=== PATIENT | male | born 1945 | race African-American/Black ===

== ENCOUNTER → 2016-07-12 | Outpatient (CLI) | payer BC, MEDICARE ==
[2016-07-12 17:16] LABS: ABSOLUTE BASOPHILS # (AUTO) 0.1 10^3/uL (0.0-0.2); ABSOLUTE EOSINOPHILS # (AUTO) 0.1 10^3/uL (0.0-0.6); ABSOLUTE LYMPHOCYTES (AUTO) 1.9 10^3/uL (0.5-4.7); ABSOLUTE MONOCYTES (AUTO) 1.7 10^3/uL (0.1-1.4); ABSOLUTE NEUT (AUTO) 11.7 10^3/uL (1.7-8.2); BASOPHILS % (AUTO) 0.5 % (0-2); EOSINOPHILS % (AUTO) 0.6 % (0-6); HEMATOCRIT 29.4 % (37.9-51.0); HEMOGLOBIN 9.8 g/dL (13.5-17.0); LYMPHOCYTES % (AUTO) 12.2 % (13-45); MEAN CORPUSCULAR HEMOGLOBIN 28.4 pg (27.0-33.4); MEAN CORPUSCULAR HGB CONC 33.3 g/dL (32.0-36.0); MEAN CORPUSCULAR VOLUME 85 fl (80-97); MONOCYTES % (AUTO) 10.9 % (3-13); RED BLOOD COUNT 3.45 10^6/uL (4.35-5.55); RED CELL DISTRIBUTION WIDTH 15.4 % (11.5-14.0); SEGMENTED NEUTROPHILS % (AUTO) 75.8 % (42-78); WHITE BLOOD COUNT 15.4 10^3/uL (4.0-10.5)
[2016-07-12 17:24] LABS: APPEARANCE,URINE CLEAR; BILIRUBIN,URINE NEGATIVE (NEGATIVE); GLUCOSE, URINE NEGATIVE (NEGATIVE); KETONES,URINE NEGATIVE (NEGATIVE); LEUKOCYTE ESTERASE,URINE NEGATIVE (NEGATIVE); NITRITE,URINE NEGATIVE (NEGATIVE); PROTEIN,URINE NEGATIVE (NEGATIVE); URINE SPECIFIC GRAVITY 1.008; UROBILINOGEN,URINE NEGATIVE mg/dL (<2.0)
[2016-07-12 17:47] LABS: ALANINE AMINOTRANSFERASE 40 U/L (21-72); ALBUMIN 3.6 g/dL (3.5-5.0); ALKALINE PHOSPHATASE 68 U/L (38-126); ANION GAP 9 (5-19); ASPARTATE AMINO TRANSFERASE 26 U/L (17-59); BILIRUBIN,TOTAL 0.6 mg/dL (0.2-1.3); BLOOD UREA NITROGEN 23 mg/dL (7-20); CARBON DIOXIDE 30 mmol/L (22-30); CHLORIDE 98 mmol/L (98-107); CREATININE RESULT 1.27 mg/dL (0.52-1.25); GLUCOSE 85 mg/dL (75-110); POTASSIUM 4.1 mmol/L (3.6-5.0); SODIUM 136.5 mmol/L (137-145); TOTAL PROTEIN 6.6 g/dL (6.3-8.2)
== END ==
LOC: OD 16:28
PROVIDERS: ATTEND Internal Medicine Cardiovascular Disease
DX: Z79.01 Long term (current) use of anticoagulants (principal); Z79.899 Other long term (current) drug therapy
CPT/HCPCS: 36415; 80048; 80076; 81001; 82272; 85025; 85730

== ENCOUNTER 2016-07-20 10:03 | Day surgery (SDC) | payer BC, MEDICARE ==
[~2016-07-20 10:03] MED LIST: DIPHENHYDRAMINE HCL 50 MG/ML VIAL ONE; EPINEPHRINE INJ 1 MG/10 ML DISP.SYRIN ONE; FENTANYL CITRATE INJ/PF 100 MCG/2 ML AMPUL ONE; FLUMAZENIL INJ 0.5 MG/5 ML VIAL IV ONE; GLUCAGON,HUMAN RECOMB 1 MG INJ ONE; MIDAZOLAM 2 MG/2 ML INJ ONE; NALOXONE HCL INJ/PF 0.4 MG/1 ML SDV ONE; ONDANSETRON HCL INJ/PF 4 MG/2 ML SDV ONE; PROMETHAZINE HCL INJ 25 MG/1 ML VIAL ONE
--- NOTE | 2016-07-20 11:02 | Operative Report ---
Operative Report DATE OF SURGERY: 07/20/16 Operative Report: The risks benefits and alternatives of the procedure explained to the patient in detail and informed consent is obtained that GIF Olympus video scope was inserted into the patient's mouth and hypopharynx the esophagus is identified intubated and insufflated the scope was then advanced through the esophagus stomach and duodenum retroflexion maneuver is done the esophagus stomach and first and second portions of the duodenum examined PREOPERATIVE DIAGNOSIS: GI bleed, heme-positive stools, decreasing hemoglobin POSTOPERATIVE DIAGNOSIS: Small bowel AVM status post ablation. Gastritis. 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 Patient is currently on anticoagulation not able to biopsy at risk of bleeding OPERATION: EGD with ablation SURGEON: RUBIA XIE ANESTHESIA: Other - patient is unsedated TISSUE REMOVED OR ALTERED: None. COMPLICATIONS: None. ESTIMATED BLOOD LOSS: none. INTRAOPERATIVE FINDINGS: Small bowel AVMs status post ablation. Gastritis. 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 No immediate postprocedure complications are noted. Patient is discharged in good condition. Discharge date 07/20/2016. Discharge diet: Regular. Discharge activity: Regular. We'll need to stop anticoagulation Follow-up EGD in 2-3 weeks at that point may need repeat ablation He'll need a patient that time for his Montgomery's esophagus is well. Patient is instructed to call the office or proceed to the emergency room if there are any further problems or questions.
[2016-07-20 11:38] VITALS: BP 148/82
== END 2016-07-20 11:40 | disposition home or self-care (01) ==
LOC: END 10:03
PROVIDERS: ATTEND Internal Medicine Gastroenterology
PROC: 0W3P8ZZ Control Bleeding in Gastrointestinal Tract, Via Natural or Artificial Opening Endoscopic (ICD-10-PCS; principal; 2016-07-20 10:00)
DX: Q27.33 Arteriovenous malformation of digestive system vessel (principal); K29.70 Gastritis, unspecified, without bleeding; J45.909 Unspecified asthma, uncomplicated; I10 Essential (primary) hypertension; E11.9 Type 2 diabetes mellitus without complications; Z79.01 Long term (current) use of anticoagulants
CPT/HCPCS: 43255; 82962; J2250; J0171; J1200; J1610; J2310; J2405; J2550; J3010; J3490

== ENCOUNTER → 2016-08-07 | Outpatient (CLI) | payer MEDICARE, BC ==
[2016-08-07 12:53] LABS: HEMOGLOBIN 10.6 g/dL (13.5-17.0); HGB HCT DIFFERENCE -0.2; MEAN CORPUSCULAR HEMOGLOBIN 28.7 pg (27.0-33.4); MEAN CORPUSCULAR VOLUME 87 fl (80-97); RED BLOOD COUNT 3.69 10^6/uL (4.35-5.55); RED CELL DISTRIBUTION WIDTH 16.5 % (11.5-14.0); WHITE BLOOD COUNT 15.2 10^3/uL (4.0-10.5)
== END ==
LOC: OD 11:56
PROVIDERS: ATTEND Internal Medicine Cardiovascular Disease
DX: K92.2 Gastrointestinal hemorrhage, unspecified (principal); D64.9 Anemia, unspecified
CPT/HCPCS: 36415; 85027

== ENCOUNTER 2016-08-14 11:46 | Day surgery (SDC) | payer BC, MEDICARE ==
[~2016-08-14 11:46] MED LIST changes: -MIDAZOLAM 2 MG/2 ML INJ ONE
[2016-08-14] MEDS: MIDAZOLAM 2 MG/2 ML INJ ONE ×2 (12:16→12:20)
--- NOTE | 2016-08-14 12:34 | Operative Report ---
Operative Report DATE OF SURGERY: 08/14/16 Operative Report: The risks benefits and alternatives of the procedure explained to the patient in detail and informed consent is obtained that GIF Olympus video scope was inserted into the patient's mouth and hypopharynx the esophagus is identified intubated and insufflated the scope was then advanced through the esophagus stomach and duodenum retroflexion maneuver is done the esophagus stomach and first and second portions of the duodenum examined PREOPERATIVE DIAGNOSIS: Follow-up in GI bleeding. 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 2 gastric AVMs that ablated in situ. Esophageal ulcer. Hiatal hernia OPERATION: EGD with ablation SURGEON: RUBIA XIE ANESTHESIA: Moderate Sedation - 2 mg of Versed, 50 g of fentanyl. Conscious sedation monitoring time 15 minutes. TISSUE REMOVED OR ALTERED: None. COMPLICATIONS: None. ESTIMATED BLOOD LOSS: none INTRAOPERATIVE FINDINGS: As described above. PROCEDURE: Patient tolerated procedure well. No immediate postprocedure complications are noted. Patient is discharged in good condition. Discharge date 08/14/2016. Discharge diet: Regular. Discharge activity: Regular. 2-3 week follow-up to discuss findings. Start PPI hold off on anticoagulation for another month or so. Due to the esophageal ulceration Follow-up upper endoscopy 6 weeks
[2016-08-14 13:27] VITALS: BP 137/82
== END 2016-08-14 13:30 | disposition home or self-care (01) ==
LOC: END 11:46
PROVIDERS: ATTEND Internal Medicine Gastroenterology
PROC: 0D568ZZ Destruction of Stomach, Via Natural or Artificial Opening Endoscopic (ICD-10-PCS; principal; 2016-08-14 12:00)
DX: K31.811 Angiodysplasia of stomach and duodenum with bleeding (principal); K44.9 Diaphragmatic hernia without obstruction or gangrene; K22.10 Ulcer of esophagus without bleeding; J45.909 Unspecified asthma, uncomplicated; E11.9 Type 2 diabetes mellitus without complications; I10 Essential (primary) hypertension; Z79.51 Long term (current) use of inhaled steroids; Z79.899 Other long term (current) drug therapy; Z79.82 Long term (current) use of aspirin; Z85.46 Personal history of malignant neoplasm of prostate
CPT/HCPCS: 43270; 82962; J2250; J3010; J0171; J1200; J1610; J2310; J2405; J2550; J3490

== ENCOUNTER → 2016-08-22 | Outpatient (CLI) | payer BC, MEDICARE ==
[2016-08-22 11:38] LABS: APPEARANCE,URINE CLEAR; BILIRUBIN,URINE NEGATIVE (NEGATIVE); GLUCOSE, URINE NEGATIVE (NEGATIVE); KETONES,URINE NEGATIVE (NEGATIVE); LEUKOCYTE ESTERASE,URINE NEGATIVE (NEGATIVE); NITRITE,URINE NEGATIVE (NEGATIVE); PROTEIN,URINE NEGATIVE (NEGATIVE); URINE SPECIFIC GRAVITY 1.012; UROBILINOGEN,URINE NEGATIVE mg/dL (<2.0)
[2016-08-22 11:49] LABS: ABSOLUTE BASOPHILS # (AUTO) 0.1 10^3/uL (0.0-0.2); ABSOLUTE LYMPHOCYTES (AUTO) 1.3 10^3/uL (0.5-4.7); ABSOLUTE MONOCYTES (AUTO) 0.8 10^3/uL (0.1-1.4); ABSOLUTE NEUT (AUTO) 10.9 10^3/uL (1.7-8.2); BASOPHILS % (AUTO) 0.6 % (0-2); EOSINOPHILS % (AUTO) 0.1 % (0-6); HEMATOCRIT 32.9 % (37.9-51.0); HGB HCT DIFFERENCE 0.1; LYMPHOCYTES % (AUTO) 9.6 % (13-45); MEAN CORPUSCULAR HEMOGLOBIN 28.6 pg (27.0-33.4); MEAN CORPUSCULAR HGB CONC 33.5 g/dL (32.0-36.0); MEAN CORPUSCULAR VOLUME 86 fl (80-97); MONOCYTES % (AUTO) 5.9 % (3-13); RED BLOOD COUNT 3.85 10^6/uL (4.35-5.55); RED CELL DISTRIBUTION WIDTH 16.9 % (11.5-14.0); SEGMENTED NEUTROPHILS % (AUTO) 83.8 % (42-78)
[2016-08-22 11:57] LABS: ALANINE AMINOTRANSFERASE 37 U/L (21-72); ALKALINE PHOSPHATASE 65 U/L (38-126); ANION GAP 10 (5-19); ASPARTATE AMINO TRANSFERASE 22 U/L (17-59); BILIRUBIN,DIRECT 0.1 mg/dL (0.0-0.4); BILIRUBIN,TOTAL 0.6 mg/dL (0.2-1.3); BLOOD UREA NITROGEN 17 mg/dL (7-20); CALCIUM 10.2 mg/dL (8.4-10.2); CARBON DIOXIDE 30 mmol/L (22-30); CHLORIDE 99 mmol/L (98-107); CREATININE RESULT 1.03 mg/dL (0.52-1.25); GLUCOSE 125 mg/dL (75-110); POTASSIUM 4.4 mmol/L (3.6-5.0); SODIUM 138.6 mmol/L (137-145); TOTAL PROTEIN 6.4 g/dL (6.3-8.2)
== END ==
LOC: OD 10:27
PROVIDERS: ATTEND Internal Medicine Cardiovascular Disease
DX: I50.32 Chronic diastolic (congestive) heart failure (principal); R06.02 Shortness of breath; Z79.01 Long term (current) use of anticoagulants; Z79.899 Other long term (current) drug therapy
CPT/HCPCS: 36415; 80048; 80076; 81001; 82272; 83735; 83880; 85025; 85730

== ENCOUNTER → 2016-09-05 | Outpatient (CLI) | payer BC, MEDICARE ==
[2016-09-05 14:38] LABS: ABSOLUTE LYMPHOCYTES (AUTO) 1.6 10^3/uL (0.5-4.7); ABSOLUTE MONOCYTES (AUTO) 1.2 10^3/uL (0.1-1.4); ABSOLUTE NEUT (AUTO) 13.3 10^3/uL (1.7-8.2); BASOPHILS % (AUTO) 0.3 % (0-2); EOSINOPHILS % (AUTO) 0.2 % (0-6); HEMATOCRIT 32.2 % (37.9-51.0); HEMOGLOBIN 11.3 g/dL (13.5-17.0); HGB HCT DIFFERENCE 1.7; LYMPHOCYTES % (AUTO) 9.8 % (13-45); MEAN CORPUSCULAR HEMOGLOBIN 29.4 pg (27.0-33.4); MEAN CORPUSCULAR HGB CONC 34.9 g/dL (32.0-36.0); MEAN CORPUSCULAR VOLUME 84 fl (80-97); MONOCYTES % (AUTO) 7.4 % (3-13); RED BLOOD COUNT 3.82 10^6/uL (4.35-5.55); RED CELL DISTRIBUTION WIDTH 16.4 % (11.5-14.0); SEGMENTED NEUTROPHILS % (AUTO) 82.3 % (42-78); WHITE BLOOD COUNT 16.2 10^3/uL (4.0-10.5)
[2016-09-05 14:42] LABS: APPEARANCE,URINE CLEAR; BILIRUBIN,URINE NEGATIVE (NEGATIVE); GLUCOSE, URINE NEGATIVE (NEGATIVE); KETONES,URINE NEGATIVE (NEGATIVE); LEUKOCYTE ESTERASE,URINE NEGATIVE (NEGATIVE); NITRITE,URINE NEGATIVE (NEGATIVE); PROTEIN,URINE NEGATIVE (NEGATIVE); URINE SPECIFIC GRAVITY 1.004; UROBILINOGEN,URINE NEGATIVE mg/dL (<2.0)
[2016-09-05 15:03] LABS: ALANINE AMINOTRANSFERASE 41 U/L (21-72); ALBUMIN 4.4 g/dL (3.5-5.0); ALKALINE PHOSPHATASE 67 U/L (38-126); ANION GAP 14 (5-19); ASPARTATE AMINO TRANSFERASE 26 U/L (17-59); BILIRUBIN,DIRECT 0.2 mg/dL (0.0-0.4); BILIRUBIN,TOTAL 0.7 mg/dL (0.2-1.3); BLOOD UREA NITROGEN 26 mg/dL (7-20); CALCIUM 10.1 mg/dL (8.4-10.2); CARBON DIOXIDE 29 mmol/L (22-30); CHLORIDE 93 mmol/L (98-107); CREATININE RESULT 1.44 mg/dL (0.52-1.25); GLUCOSE 121 mg/dL (75-110); TOTAL PROTEIN 6.7 g/dL (6.3-8.2)
== END ==
LOC: OD 13:51
PROVIDERS: ATTEND Internal Medicine Cardiovascular Disease
DX: Z79.01 Long term (current) use of anticoagulants (principal); Z79.899 Other long term (current) drug therapy
CPT/HCPCS: 36415; 80048; 80076; 81001; 82272; 85025; 85730

== ENCOUNTER 2016-09-12 07:37 | Day surgery (SDC) | payer BC, MEDICARE ==
[2016-09-12] MEDS ORDERED: ONDANSETRON HCL INJ/PF 4 MG/2 ML SDV ONE (07:41)
[2016-09-12] MEDS ORDERED: DIPHENHYDRAMINE HCL 50 MG/ML VIAL ONE (07:41)
[2016-09-12] MEDS ORDERED: NALOXONE HCL INJ/PF 0.4 MG/1 ML SDV ONE (07:41)
[2016-09-12] MEDS ORDERED: FLUMAZENIL INJ 0.5 MG/5 ML VIAL IV ONE (07:42)
[2016-09-12] MEDS ORDERED: FENTANYL CITRATE INJ/PF 100 MCG/2 ML AMPUL ONE (07:42)
[2016-09-12] MEDS ORDERED: EPINEPHRINE INJ 1 MG/10 ML DISP.SYRIN ONE (07:42)
[2016-09-12] MEDS ORDERED: GLUCAGON,HUMAN RECOMB 1 MG INJ ONE (07:43)
[2016-09-12] MEDS: MIDAZOLAM 2 MG/2 ML INJ ONE ×2 (08:15→08:20)
--- NOTE | 2016-09-12 08:54 | Operative Report ---
Operative Report DATE OF SURGERY: 09/12/16 Operative Report: The risks benefits and alternatives of the procedure explained to the patient in detail and informed consent is obtained that GIF Olympus video scope was inserted into the patient's mouth and hypopharynx the esophagus is identified intubated and insufflated the scope was then advanced through the esophagus stomach and duodenum retroflexion maneuver is done the esophagus stomach and first and second portions of the duodenum examined PREOPERATIVE DIAGNOSIS: Follow-up esophageal ulcer POSTOPERATIVE DIAGNOSIS: Patrica esophagitis. Healed esophageal ulcer. Hiatal hernia. Small gastric AVMs ablated in situ OPERATION: EGD with ablation. EGD with brushing SURGEON: RUBIA XIE ANESTHESIA: Moderate Sedation - 3 mg of Versed, 50 g of fentanyl. Conscious sedation monitoring time 30 minutes. TISSUE REMOVED OR ALTERED: Esophageal brushing obtained. COMPLICATIONS: None. ESTIMATED BLOOD LOSS: none. INTRAOPERATIVE FINDINGS: As described above. PROCEDURE: Patient tolerated the procedure well. No immediate postprocedure complications are noted. Patient is discharged in good condition. Discharge date 09/12/2016. Discharge diet: Regular. Discharge activity: Regular. 2-3 week follow-up to discuss findings. Should be able to resume anticoagulation. We'll treat him if esophageal brushings are consistent with Patrica esophagitis. Patient is instructed to call the office or proceed to the emergency room should there be any further problems or questions.
[2016-09-12 09:43] VITALS: BP 133/77
== END 2016-09-12 09:40 | disposition home or self-care (01) ==
LOC: END 07:37
PROVIDERS: ATTEND Internal Medicine Gastroenterology
PROC: 0D568ZZ Destruction of Stomach, Via Natural or Artificial Opening Endoscopic (ICD-10-PCS; principal; 2016-09-12 08:00)
DX: Q27.33 Arteriovenous malformation of digestive system vessel (principal); B37.81 Candidal esophagitis; K44.9 Diaphragmatic hernia without obstruction or gangrene; Z09 Encounter for follow-up examination after completed treatment for conditions other than malignant neoplasm; Z87.11 Personal history of peptic ulcer disease; J45.909 Unspecified asthma, uncomplicated; Z79.82 Long term (current) use of aspirin; Z79.899 Other long term (current) drug therapy
CPT/HCPCS: 43270; 87101; 82962; J2250; J3010; 43235; J0171; J1200; J1610; J2310; J2405; J3490

== ENCOUNTER 2016-09-17 13:49 | Inpatient (IN) | payer BC, MEDICARE ==
[2016-09-17] MEDS ORDERED: METHYLPREDNISOLONE INJ 125 MG/2 ML SDV IV ONE (13:54)
[2016-09-17] MEDS ORDERED: IPRATROPIUM/ALBUTEROL 0.5-2.5 MG/3 ML AMPUL NEB ONE ×2 (13:54)
--- NOTE | 2016-09-17 13:57 | ER Document Report ---
ED Medical Screen (RME) - General Stated Complaint: RESPIRATORY DISTRESS Mode of Arrival: Wheelchair Information source: Patient, Dr. Office Notes: 71-year-old male presents with complaints of difficulty breathing 2 week duration. Patient denies any fevers or chills, patient seen at primary care office given breathing treatment where he was satting 96% and brought in for evaluation Patient notes shortness of breath worsened with ambulation I have greeted and performed a rapid initial assessment of this patient. A comprehensive ED assessment and evaluation of the patient, analysis of test results and completion of the medical decision making process will be conducted by additional ED providers. PHYSICAL EXAMINATION: GENERAL: Obese male in mild respiratory distress. HEAD: Atraumatic, normocephalic. EYES: Pupils equal round extraocular movements intact, conjunctiva are normal. ENT: Nares patent NECK: Normal range of motion LUNGS: Faint coarse wheezing all throughout mild intercostal retractions Musculoskeletal: Normal range of motion NEUROLOGICAL: Normal speech, normal gait. PSYCH: Normal mood, normal affect. SKIN: Warm, Dry, normal turgor, no rashes or lesions noted. TRAVEL OUTSIDE OF THE [place] IN LAST 30 DAYS: No - Related Data Allergies/Adverse Reactions: No Known Allergies Allergy (Verified 09/12/16 08:09) Past Medical History - Past Medical History Cardiac Medical History: Reports: Hx Heart Attack - NSTEMI, Hx Hypertension Denies: Hx Coronary Artery Disease Pulmonary Medical History: Reports: Hx Asthma Denies: Hx Bronchitis, Hx COPD, Hx Pneumonia Neurological Medical History: Denies: Hx Cerebrovascular Accident, Hx Seizures Endocrine Medical History: Reports: Hx Diabetes Mellitus Type 2 Musculoskeltal Medical History: Reports Hx Arthritis - KNEES, TOES - Immunizations Hx Diphtheria, Pertussis, Tetanus Vaccination: Yes
--- NOTE | 2016-09-17 14:11 | ER Document Report ---
ED Respiratory Problem - General Mode of Arrival: Wheelchair Information source: Patient TRAVEL OUTSIDE OF THE [place] IN LAST 30 DAYS: No - HPI Patient complains to provider of: Asthma, CHF, Cough, Hurts to breath, Short of breath Onset: Other - 2-3 weeks ago Context: Hx asthma, Hx CHF Cough: Nonproductive At home treatment: Oral steroids Associated symptoms: Other - see notes above <SOBEIDA BELLO - Last Filed: 09/17/16 14:12> <KAT VALADEZ - Last Filed: 09/17/16 14:21> - General Chief Complaint: Shortness Of Breath Stated Complaint: RESPIRATORY DISTRESS Notes: 71 year old male with history of atrial fibrillation, CHF, [place] (2016; no stents) , asthma, and diabetes presents to the ED complaining of shortness of breath that started 2-3 weeks ago. Patient reports that he went to an Urgent Care just prior to arrival with respiratory distress. Patient was given a nebulizer treatment at the Urgent Care and now reports he feels a little better. Patient reports shortness of breath with exertion, pain with breathing, non-productive cough, but denies fever. Patient is not on oxygen at home, but reports using a nebulizer and 25 mg prednisone. (SOBEIDA BELLO) - Related Data Allergies/Adverse Reactions: No Known Allergies Allergy (Verified 09/12/16 08:09) Past Medical History - General Information source: Patient, Office - Social History Smoking Status: Unknown if Ever Smoked Family History: Reviewed & Not Pertinent - Past Medical History Cardiac Medical History: Reports: Hx Atrial Fibrillation, Hx Congestive Heart Failure, Hx Heart Attack - NSTEMI, Hx Hypertension Pulmonary Medical History: Reports: Hx Asthma Endocrine Medical History: Reports: Hx Diabetes Mellitus Type 2 Malignancy Medical History: Reports Hx Prostate Cancer Musculoskeltal Medical History: Reports Hx Arthritis - KNEES, TOES - Immunizations Hx Diphtheria, Pertussis, Tetanus Vaccination: Yes Hx Pneumococcal Vaccination: 03/27/16 <SOBEIDA BELLO - Last Filed: 09/17/16 14:12> Review of Systems - Review of Systems Constitutional: No symptoms reported. denies: Fever EENT: No symptoms reported Cardiovascular: No symptoms reported Respiratory: See HPI, Cough, Hurts to breathe, Short of breath. denies: Hemoptysis, Sputum Gastrointestinal: No symptoms reported Genitourinary: No symptoms reported Male Genitourinary: No symptoms reported Musculoskeletal: No symptoms reported Skin: No symptoms reported Hematologic/Lymphatic: No symptoms reported Neurological/Psychological: No symptoms reported -: Yes All other systems reviewed and negative <SOBEIDA BELLO - Last Filed: 09/17/16 14:12> Physical Exam <SOBEIDA BELLO - Last Filed: 09/17/16 14:12> - Vital signs Interpretation: Normal, Tachypneic <KAT VALADEZ - Last Filed: 09/17/16 14:21> - Vital signs Vitals: Temp Pulse Resp BP Pulse Ox 97.9 F 99 22 H 120/87 H 100 09/17/16 14:00 09/17/16 14:00 09/17/16 14:00 09/17/16 14:00 09/17/16 14:00 - Notes Notes: Physical Exam: GENERAL: VS as per nursing doc. Well-appearing, well-nourished and mild to moderate acute distress. HEAD: Atraumatic, normocephalic. EYES: Pupils equal round and reactive to light, extraocular movements intact, sclera anicteric, no conjunctival injection or discharge. ENT: Nares patent, oropharynx clear without exudates. Moist mucous membranes. NECK: Normal range of motion, supple without lymphadenopathy. No JVD. No Carotid Bruits. LUNGS: Breath sounds coarse bilaterally with prolonged expiratory phase and diffuse wheezing HEART: Normal S1S2. Regular rate and rhythm without murmurs. Equal peripheral pulses. ABDOMEN: Soft, non-tender EXTREMITIES: Normal range of motion. No calf tenderness. Negative Homans. Trace edema. NEUROLOGICAL: Cranial nerves grossly intact. Normal speech. Normal sensory and motor exams. No gross cerebellar abnormalities. PSYCH: Normal mood, normal affect. SKIN: Warm, dry, no cyanosis, no splinter hemorrhages. Cap refill < 2 sec. (KENZIEKAT Menon) Course - EKG Interpretation by Wi EKG shows normal: Sinus rhythm Rate: Normal - Heart rate 84. Normal QRS, mild T-wave inversion 1 in aVL. Anterior T-wave inversions on 12/15/2015 have resolved <KENZIEKAT STACY - Last Filed: 09/17/16 14:21> - Vital Signs Vital signs: Temp Pulse Resp BP Pulse Ox 97.9 F 99 22 H 120/87 H 100 09/17/16 14:00 09/17/16 14:00 09/17/16 14:00 09/17/16 14:00 09/17/16 14:00 Scribe Documentation - Scribe Written by Heather:: Heather Garcia, 09/17/2016 1417 acting as scribe for :: Kenzie <SOBEIDA BELLO - Last Filed: 09/17/16 14:12>
[2016-09-17 15:00] LABS: ABSOLUTE LYMPHOCYTES (AUTO) 1.3 10^3/uL (0.5-4.7); ABSOLUTE MONOCYTES (AUTO) 1.2 10^3/uL (0.1-1.4); ABSOLUTE NEUT (AUTO) 12.6 10^3/uL (1.7-8.2); BASOPHILS % (AUTO) 0.2 % (0-2); EOSINOPHILS % (AUTO) 0.1 % (0-6); HEMATOCRIT 34.1 % (37.9-51.0); HEMOGLOBIN 11.8 g/dL (13.5-17.0); HGB HCT DIFFERENCE 1.3; LYMPHOCYTES % (AUTO) 8.7 % (13-45); MEAN CORPUSCULAR HEMOGLOBIN 28.6 pg (27.0-33.4); MEAN CORPUSCULAR HGB CONC 34.6 g/dL (32.0-36.0); MEAN CORPUSCULAR VOLUME 83 fl (80-97); MONOCYTES % (AUTO) 7.7 % (3-13); RED BLOOD COUNT 4.11 10^6/uL (4.35-5.55); RED CELL DISTRIBUTION WIDTH 16.1 % (11.5-14.0); SEGMENTED NEUTROPHILS % (AUTO) 83.3 % (42-78); WHITE BLOOD COUNT 15.1 10^3/uL (4.0-10.5)
[2016-09-17 15:01] LABS: VENOUS BLOOD BASE EXCESS 0.5 mmol/L; VENOUS BLOOD HCO3 23.9 mmol/L (20-32); VENOUS BLOOD PCO2 34.4 mmHg (35-63); VENOUS BLOOD PH 7.46 (7.30-7.42)
[2016-09-17 15:19] LABS: ALANINE AMINOTRANSFERASE 50 U/L (21-72); ALBUMIN 4.5 g/dL (3.5-5.0); ALKALINE PHOSPHATASE 71 U/L (38-126); ANION GAP 13 (5-19); ASPARTATE AMINO TRANSFERASE 28 U/L (17-59); BILIRUBIN,DIRECT 0.1 mg/dL (0.0-0.4); BILIRUBIN,TOTAL 0.9 mg/dL (0.2-1.3); BLOOD UREA NITROGEN 32 mg/dL (7-20); CALCIUM 10.1 mg/dL (8.4-10.2); CARBON DIOXIDE 27 mmol/L (22-30); CHLORIDE 86 mmol/L (98-107); CREATINE KINASE 159 U/L (55-170); CREATININE RESULT 1.96 mg/dL (0.52-1.25); GLUCOSE 141 mg/dL (75-110); POTASSIUM 4.7 mmol/L (3.6-5.0); SODIUM 125.9 mmol/L (137-145); TOTAL PROTEIN 6.8 g/dL (6.3-8.2)
[2016-09-17 15:31] LABS: CREATINE KINASE MB 2.13 ng/mL (<4.55)
[2016-09-17 15:32] LABS: TROPONIN I < 0.012 ng/mL
[2016-09-17 16:53] LABS: APPEARANCE,URINE CLEAR; BILIRUBIN,URINE NEGATIVE (NEGATIVE); GLUCOSE, URINE 50 mg/dL (NEGATIVE); KETONES,URINE NEGATIVE (NEGATIVE); LEUKOCYTE ESTERASE,URINE NEGATIVE (NEGATIVE); NITRITE,URINE NEGATIVE (NEGATIVE); PROTEIN,URINE NEGATIVE (NEGATIVE); URINE SPECIFIC GRAVITY 1.009; UROBILINOGEN,URINE NEGATIVE mg/dL (<2.0)
[2016-09-17] MEDS ORDERED: MAGNESIUM OXIDE 400 MG TABLET PO SCH (18:00)
--- NOTE | 2016-09-17 21:39 | EKG REPORT ---
SEVERITY:- NORMAL ECG - SINUS RHYTHM : Confirmed by: Dionne Briceno 17-Sep-2016 21:38:13
[2016-09-17] MEDS: MONTELUKAST SODIUM 10 MG TABLET PO SCH (22:24)
[2016-09-17] MEDS: HYDRALAZINE HCL 25 MG TABLET PO SCH (22:24)
[2016-09-17] MEDS: CETIRIZINE 10 MG TABLET PO SCH (22:24)
[2016-09-17] MEDS: ATORVASTATIN CALCIUM 40 MG TABLET PO SCH (22:24)
[2016-09-17] MEDS: FAMOTIDINE 20 MG TABLET PO SCH (22:25)
[2016-09-17] MEDS: HEPARIN SOD (PORCINE) 5,000 UNIT/ML 1 ML SYRINGE SUBCUT SCH (22:26)
[2016-09-17] MEDS: BUDESONIDE/FORMOTEROL 160-4.5 MCG 60 PUFF/6 GM MDI IH SCH (22:27)
[2016-09-18] MEDS: HEPARIN SOD (PORCINE) 5,000 UNIT/ML 1 ML SYRINGE SUBCUT SCH ×3 (05:34→22:26)
[2016-09-18 06:01] LABS: ANION GAP 11 (5-19); BLOOD UREA NITROGEN 29 mg/dL (7-20); CALCIUM 9.8 mg/dL (8.4-10.2); CARBON DIOXIDE 24 mmol/L (22-30); CHLORIDE 88 mmol/L (98-107); CREATININE RESULT 1.49 mg/dL (0.52-1.25); GLUCOSE 270 mg/dL (75-110); MAGNESIUM 2.3 mg/dL (1.6-2.3); POTASSIUM 5.1 mmol/L (3.6-5.0); SODIUM 123.4 mmol/L (137-145)
[2016-09-18] MEDS ORDERED: GLUCAGON,HUMAN RECOMB 1 MG INJ IM PRN (06:06)
[2016-09-18] MEDS ORDERED: DEXTROSE 40% GEL 15 GM TUBE PO PRN ×2 (06:06)
[2016-09-18] MEDS ORDERED: DEXTROSE 50%-WATER 25 GM/50 ML DISP.SYRIN IV PRN ×2 (06:06)
--- NOTE | 2016-09-18 07:37 | PDOC H&P ---
History of Present Illness Admission Date/PCP: 09/17/16 16:00 MARY BETH NEELY MD Patient complains of: dyspnea History of Present Illness: YURI FOSTER JR is a 71 year old male, never smoker with asthma since age 7 on xolair and prednisone 25mg qd from Dr Caro. 2w ago he had moderate wheeze. I switched his metoprolol for vt & af to dilltiazem. His wheeze worsened. Yesterday sent him to ER. Past Medical History Cardiac Medical History: Reports: Atrial Fibrillation, Congestive Heart Failure - diastolic since 2016 echo., Hyperlipidema, Hypertension Denies: Coronary Artery Disease Pulmonary Medical History: Reports: Asthma Denies: Chronic Obstructive Pulmonary Disease (COPD), Pneumonia EENT Medical History: Reports: Nose - allergic rhinitis Neurological Medical History: Reports: None Endocrine Medical History: Reports: Diabetes Mellitus Type 2 Renal/ Medical History: Denies: Chronic Kidney Disease Malignancy Medical History: Reports: Other - 2010 prostate Rx seeds GI Medical History: Reports: Gastroesophageal Reflux Disease - 1m esophageal ulcer. DrL ablated gastric & duodenal avm. Musculoskeltal Medical History: Reports: Arthritis - KNEES, TOES Skin Medical History: Reports: Eczema Psychiatric Medical History: Reports: None Hematology: Reports: Anemia - 2016 aplastic with negative labs Infectious Medical History: Reports: None Past Surgical History Past Surgical History: Reports: Other - L cataract Social History Information Source: Office Smoking Status: Never Smoker Frequency of Alcohol Use: None Hx Recreational Drug Use: Yes Drugs: Cocaine, Marijuana Hx Prescription Drug Abuse: No - Advance Directive Resuscitation Status: Full Code Family History Family History: DM, Other - asthma brother Parental Family History Reviewed: Yes Children Family History Reviewed: Yes Sibling(s) Family History Reviewed.: Yes Medication/Allergy Home Medications: Albuterol Sulfate [Proair Respiclick] 2 inh IH Q4HP PRN 09/17/16 Alfuzosin HCl [Alfuzosin HCl ER] 10 mg PO DAILY 09/17/16 Aspirin [Aspirin 81 mg Chewable Tablet] 81 mg PO DAILY 09/17/16 Budesonide [Pulmicort] 1 mg IH Q12 09/17/16 Budesonide/Formoterol Fumarate [Symbicort Hfa 160-4.5 Mcg Inhaler 6 gm] 2 puff IH Q12 09/17/16 Cetirizine HCl [Zyrtec 10 mg Tablet] 10 mg PO QHS 09/17/16 Clobetasol Propionate/Emoll [Clobetasol Emollient 0.05% Crm] 1 applic TP BIDP PRN 09/17/16 Diltiazem HCl [Diltiazem 24Hr Cd] 240 mg PO DAILY 09/17/16 Epinephrine [Epipen] 0.3 mg INJ DAILYP PRN 09/17/16 Hydralazine HCl [Apresoline 25 mg Tablet] 25 mg PO Q12 09/17/16 Ipratropium/Albuterol Sulfate [Duoneb 3 ml Ampul] 3 ml NEB RTQ4HP PRN 09/17/16 Losartan Potassium [Cozaar 100 mg Tablet] 100 mg PO DAILY 09/17/16 Magnesium Oxide [Mag-Ox 400 mg Tablet] 400 mg PO BID 09/17/16 Montelukast Sodium [Singulair 10 mg Tablet] 10 mg PO QHS 09/17/16 Omalizumab [Xolair Inj 150 Mg Vial] 150 mg SUBCUT [id number] 09/17/16 Omeprazole 40 mg PO DAILY 09/17/16 Pimecrolimus [Elidel] 1 applic TP BID 09/17/16 Prednisone 25 mg PO DAILY 09/17/16 Spironolactone [Aldactone 25 mg Tablet] 25 mg PO DAILY 09/17/16 Tiotropium [place] [Spiriva Respimat] 2 puff IH DAILY 09/17/16 Atorvastatin Calcium [Lipitor 10 mg Tablet] 10 mg PO QHS 09/18/16 Clonidine HCl [Catapres] 0.1 mg PO Q12 09/18/16 Furosemide [Lasix] 40 mg PO BID 09/18/16 Hum Insulin NPH/Reg Insulin Hm [Novolin 70-30 100 Unit/Ml Vial] 20 unit SQ BID 09/18/16 Allergies/Adverse Reactions: No Known Allergies Allergy (Verified 09/12/16 08:09) Review of Systems Constitutional: ABSENT: fever(s), headache(s), weight loss Nose, Mouth, and Throat: ABSENT: sore throat Cardiovascular: PRESENT: dyspnea on exertion, edema, orthropnea. ABSENT: chest pain Respiratory: PRESENT: cough, dyspnea, sputum Gastrointestinal: PRESENT: constipation. ABSENT: abdominal pain, diarrhea, hematochezia, melena, vomiting Genitourinary: PRESENT: difficulty urinating. ABSENT: dysuria, hematuria Integumentary: PRESENT: rash Physical Exam Vital Signs: Temp Pulse Resp BP Pulse Ox 98.4 F 91 20 136/85 H 100 09/18/16 03:48 09/18/16 03:48 09/18/16 03:48 09/18/16 03:48 09/18/16 03:48 Intake & Output 09/16/16 09/17/16 09/18/16 07:59 07:59 07:59 Intake Total 800 Output Total 1075 Balance -275 General appearance: PRESENT: no acute distress Mouth exam: PRESENT: moist Neck exam: ABSENT: lymphadenopathy, tenderness, thyromegaly, tracheal deviation Respiratory exam: PRESENT: prolonged expiratory phas, wheezes - moderate Cardiovascular exam: ABSENT: diastolic murmur, irregular rhythm, systolic murmur GI/Abdominal exam: ABSENT: mass, organolmegaly, tenderness Extremities exam: PRESENT: pedal edema - trace Neurological exam: PRESENT: oriented to situation Psychiatric exam: PRESENT: appropriate affect Results Laboratory Results: 09/18/16 04:40 09/17/16 09/17/16 09/17/16 16:40 18:10 18:10 Retic Count (auto) 1.10 Absolute Retic 0.047 Sodium Potassium Chloride Carbon Dioxide Anion Gap BUN Creatinine Est GFR ( Amer) Est GFR (Non-Af Amer) Glucose Calcium Magnesium Iron 63.3 TIBC 397 % Saturation 16 Ferritin 98.40 Vitamin B12 993.0 H Folate 15.60 Urine Color YELLOW Urine Appearance CLEAR Urine pH 5.0 Ur Specific [place] 1.009 Urine Protein NEGATIVE Urine Glucose (UA) 50 H Urine Ketones NEGATIVE Urine Blood NEGATIVE Urine Nitrite NEGATIVE Ur Leukocyte Esterase NEGATIVE Urine WBC (Auto) 1 Urine RBC (Auto) 1 09/18/16 04:40 Retic Count (auto) Absolute Retic Sodium 123.4 L Potassium 5.1 H Chloride 88 L Carbon Dioxide 24 Anion Gap 11 BUN 29 H Creatinine 1.49 H Est GFR ( Amer) 57 L Est GFR (Non-Af Amer) 47 L Glucose 270 H Calcium 9.8 Magnesium 2.3 Iron TIBC % Saturation Ferritin Vitamin B12 Folate Urine Color Urine Appearance Urine pH Ur Specific [place] Urine Protein Urine Glucose (UA) Urine Ketones Urine Blood Urine Nitrite Ur Leukocyte Esterase Urine WBC (Auto) Urine RBC (Auto) Impressions: Chest X-Ray 09/17/16 13:55 IMPRESSION: No acute cardiopulmonary disease. Assessment & Plan - Diagnosis (1) Status asthmaticus Qualifiers: Asthma severity: severe persistent Qualified Code(s): J45.52 - Severe persistent asthma with status asthmaticus Is this a current diagnosis for this admission?: YesPlan: increase prednisone 50. Consult pulmonology since Dr Caro does not come to hospital. (2) Paroxysmal atrial fibrillation Is this a current diagnosis for this admission?: YesPlan: note: off eliquis for avm ablated once. May resume after 2nd ablation.
[2016-09-18] MEDS ORDERED: HUM INSULIN NPH/REG INSULIN HM 100 UNIT/1 ML 3 ML SUBCUT SCH (08:00)
[2016-09-18] MEDS: IPRATROPIUM/ALBUTEROL 0.5-2.5 MG/3 ML AMPUL NEB PRN ×3 (08:41→20:40)
[2016-09-18] MEDS ORDERED: (PENDING PHARMACY ID) (Alfuzosin Hcl [Alfuzosin Hcl Er] 10 MG) PO SCH (10:00)
[2016-09-18] MEDS ORDERED: (PENDING PHARMACY ID) (Diltiazem Hcl [Diltiazem 24hr Cd] 240 MG) PO SCH (10:00)
[2016-09-18] MEDS ORDERED: (PENDING PHARMACY ID) (Tiotropium Bromide [Spiriva Respimat] 2 PUFF) IH SCH (10:00)
[2016-09-18] MEDS ORDERED: PREDNISONE 50 MG PO SCH (10:00)
[2016-09-18] MEDS: FAMOTIDINE 20 MG TABLET PO SCH ×2 (10:41→22:25)
[2016-09-18] MEDS: BUDESONIDE/FORMOTEROL 160-4.5 MCG 60 PUFF/6 GM MDI IH SCH ×2 (10:41→22:25)
[2016-09-18] MEDS: HYDRALAZINE HCL 25 MG TABLET PO SCH ×2 (10:41→22:24)
[2016-09-18] MEDS: ASPIRIN 81 MG TABLET, CHEWABLE PO SCH (10:42)
[2016-09-18] MEDS: DILTIAZEM HCL 240 MG CAPSULE.CR PO SCH (10:42)
[2016-09-18] MEDS: PREDNISONE 20 MG TABLET PO SCH (10:42)
--- NOTE | 2016-09-18 11:32 | Physician Advisory Note ---
Physician Advisor ProgressNote .: Pursuant to the plan for [facility], I have reviewed the medical record for this patient. Physician Advisor Statement: Excellent documentation of underlying type of asthma. Possible documentation opportunities if attending agrees: 1. "SIRS, present on admission, due to acute exacerb of severe persistent asthma" 2. "obesity with BMI 40" [any possible obesity hypoventilation, too?] 3. "acute hyponatremia, likely due to " [baseline in [id number]] 4. "Acute Kidney Injury likely due to ____, baseline Cr 1.0-1.2, improving since arrival" 5. " Afib" [persistent? paroxysmal? - coders need the specific type now] 6. ? - "chronic respiratory failure requiring chronic prednisone" 7. ? - "cocaine/THC dependence &/or abuse" As always, if concerned about any unstable VS or abnormal labs, please comment on them - what bad things they might indicate, why they concern you - & note what doing about them. Please also document each day the potential clinical problems you are concerned could occur if pt not kept in hospital for tx at this time. (These points are david - if present in each note, attending's status decision should be sufficiently supported.) Discussion: 71yo male w/ chronic co-morbidities including DM-2, chronic diastolic CHF, ___ Afib, asthma severe persistent requiring chronic prednisone, previous NSTEMI/no stents, prostate CA, esoph ulcer, gastric & duod AVMs, Lt cataract surg, cocaine , THC - presented 4/24 PM to ED w/SOB/EDMONDS/cough/pleuritic pain. Per ED nursing note , his SOB was worsened by any movement or talking. He had already gone to [facility] & received 1 neb with some improvement. ED dr said he was still in "mild-mod acute distress", w/coarseness bilat, prolonged expiration, diffuse wheezing - gave 2 Duonebs more, & Solumedrol 125mg IV. (+) HR 99, RR16-22, BP 160/90, WBC 15.1, Hgb 11.8, Na 125.9, K 4.7, BUN 32, Cr 1.96, glc 141, pH 7.46, pCO2 34.4. Attending ordered O2 2L, Prednisone 50mg daily, Symbicort, Spiriva, Singulair, tele, I/Os, pulmonary consult, VS q4h, daily wts, diltiazem, hydralazine. Status: Pt arrived w/ (+) SIRS criteria, tremendous dyspnea to the point it would worsen just from talking or moving in the room, despite chronic steroid tx & multimodal asthma tx at baseline. After 1 MN of care, pt still w/SOB per nursing notes, still w/intermittent tachycardia & tachypnea this AM, with mild hypoxemia of 95% on 2L O2 (P/F ratio of 286). He remains significantly more hyponatremic than baseline, his renal fn has not yet returned to baseline, he has developed hyperkalemia, but most importantly his breathing is not yet close enough to baseline for attending to feel comfortable sending him home could be safe. Tx in inpatient hospital setting medically reasonable & necessary to protect pt' s health, safety, & medical condition. Appropriate for Inpt status. Thanks for your help with documentation accuracy/specificity improvement! Jeana Lugo MD [facility] Physician Advisor, Fellow of Hospital Medicine
[2016-09-18] MEDS: HUM INSULIN NPH/REG INSULIN HM 100 UNIT/1 ML 3 ML SUBCUT SCH (17:05)
[2016-09-18] MEDS: ATORVASTATIN CALCIUM 40 MG TABLET PO SCH (22:24)
[2016-09-18] MEDS: CETIRIZINE 10 MG TABLET PO SCH (22:25)
[2016-09-18] MEDS: MONTELUKAST SODIUM 10 MG TABLET PO SCH (22:25)
[2016-09-19] MEDS: HEPARIN SOD (PORCINE) 5,000 UNIT/ML 1 ML SYRINGE SUBCUT SCH ×3 (05:55→22:31)
[2016-09-19 06:15] LABS: ANION GAP 11 (5-19); BLOOD UREA NITROGEN 30 mg/dL (7-20); CALCIUM 9.5 mg/dL (8.4-10.2); CARBON DIOXIDE 25 mmol/L (22-30); CHLORIDE 89 mmol/L (98-107); CREATININE RESULT 1.44 mg/dL (0.52-1.25); GLUCOSE 278 mg/dL (75-110); POTASSIUM 4.9 mmol/L (3.6-5.0); SODIUM 124.9 mmol/L (137-145)
--- NOTE | 2016-09-19 07:49 | PDOC PROGRESS REPORT ---
Subjective Progress Note for:: 09/19/16 Subjective:: less dyspnea Physical Exam Vital Signs: Temp Pulse Resp BP Pulse Ox 97.8 F 77 15 137/64 H 100 09/19/16 03:53 09/19/16 03:53 09/19/16 03:53 09/19/16 03:53 09/19/16 03:53 Intake & Output 09/17/16 09/18/16 09/19/16 07:59 07:59 07:59 Intake Total 806 1306 Output Total 1075 1910 Balance -269 -604 Weight 245 lb 13.047 oz General appearance: PRESENT: no acute distress Respiratory exam: PRESENT: prolonged expiratory phas, wheezes - mild Cardiovascular exam: ABSENT: diastolic murmur, irregular rhythm, systolic murmur Extremities exam: ABSENT: pedal edema Neurological exam: PRESENT: oriented to situation Psychiatric exam: PRESENT: appropriate affect Results Laboratory Results: 09/19/16 05:36 09/18/16 09/19/16 17:10 05:36 Sodium 124.9 L Potassium 4.9 Chloride 89 L Carbon Dioxide 25 Anion Gap 11 BUN 30 H Creatinine 1.44 H Est GFR ( Amer) 59 L Est GFR (Non-Af Amer) 49 L Glucose 278 H Calcium 9.5 Magnesium 2.3 Impressions: Chest X-Ray 09/17/16 13:55 IMPRESSION: No acute cardiopulmonary disease. Assessment & Plan - Diagnosis (1) Status asthmaticus Qualifiers: Asthma severity: severe persistent Qualified Code(s): J45.52 - Severe persistent asthma with status asthmaticus Is this a current diagnosis for this admission?: YesPlan: improving on full court press including chronic prednisone (2) Paroxysmal atrial fibrillation Is this a current diagnosis for this admission?: Yes (3) Acute and chronic respiratory failure with hypoxia Is this a current diagnosis for this admission?: Yes (4) Body mass index (BMI) of 40.0-44.9 in adult Is this a current diagnosis for this admission?: Yes (5) Systemic inflammatory response syndrome (sirs) of non-infectious origin with acute organ dysfunction Is this a current diagnosis for this admission?: YesPlan: poa with pulse, resps, wbc and wen (6) Acute kidney failure with tubular necrosis Is this a current diagnosis for this admission?: YesPlan: cr 1.0.2.0,1.4 (7) Cocaine abuse, uncomplicated Is this a current diagnosis for this admission?: Yes
[2016-09-19] MEDS: HUM INSULIN NPH/REG INSULIN HM 100 UNIT/1 ML 3 ML SUBCUT SCH ×2 (08:32→16:14)
[2016-09-19] MEDS: DILTIAZEM HCL 240 MG CAPSULE.CR PO SCH (10:47)
[2016-09-19] MEDS: ASPIRIN 81 MG TABLET, CHEWABLE PO SCH (10:47)
[2016-09-19] MEDS: PREDNISONE 20 MG TABLET PO SCH (10:47)
[2016-09-19] MEDS: HYDRALAZINE HCL 25 MG TABLET PO SCH ×2 (10:47→22:31)
[2016-09-19] MEDS: FAMOTIDINE 20 MG TABLET PO SCH ×2 (10:47→22:31)
[2016-09-19] MEDS: BUDESONIDE/FORMOTEROL 160-4.5 MCG 60 PUFF/6 GM MDI IH SCH (10:47)
[2016-09-19] MEDS: IPRATROPIUM/ALBUTEROL 0.5-2.5 MG/3 ML AMPUL NEB PRN ×2 (12:25→21:34)
--- NOTE | 2016-09-19 13:19 | PDOC CONSULTATION ---
Consultation Consult Date: 09/19/16 Attending physician:: MARY BETH NEELY Consult reason:: Dyspnea exacerbation of asthma History of Present Illness Admission Date/PCP: 09/17/16 16:00 MARY BETH NEELY MD History of Present Illness: YURI FOSTER JR is a 71 year old male, never smoker with asthma since age 7 on xolair and prednisone 25mg qd from Dr Caro. 2w ago he had moderate wheeze. I switched his metoprolol for vt & af to dilltiazem. His wheeze worsened. Yesterday sent him to ER he states that he is unable to walk to the bathroom his cough is nonproductive and he denies any hemoptysis, nausea, vomiting, fevers, chills his intermittent episodes of chest pain and swelling in his feet his PPD status is unknown he has above he said history of asthma since the age of 7 admits to exposure to passive smoke as a child as well as an adult. He himself has never smoked. He denies occupational exposure to any particular respiratory toxins he has no pets and denies any recent travel.. Past Medical History Cardiac Medical History: Reports: Atrial Fibrillation, Congestive Heart Failure - diastolic since 2016 echo., Myocardial Infarction - NSTEMI, Hyperlipidema, Hypertension Denies: Coronary Artery Disease Pulmonary Medical History: Reports: Asthma Denies: Bronchitis, Chronic Obstructive Pulmonary Disease (COPD), Pneumonia EENT Medical History: Reports: Nose - allergic rhinitis Neurological Medical History: Reports: None Denies: Seizures Endocrine Medical History: Reports: Diabetes Mellitus Type 2 Renal/ Medical History: Denies: Chronic Kidney Disease Malignancy Medical History: Reports: Other - 2011 prostate Rx seeds GI Medical History: Reports: Gastroesophageal Reflux Disease - 1m esophageal ulcer. DrL ablated gastric & duodenal avm. Musculoskeltal Medical History: Reports: Arthritis - KNEES, TOES Skin Medical History: Reports: Eczema Psychiatric Medical History: Reports: None Hematology: Reports: Anemia - 2016 aplastic with negative labs Infectious Medical History: Reports: None Past Surgical History Past Surgical History: Reports: Other - L cataract Social History Smoking Status: Never Smoker Frequency of Alcohol Use: None Hx Recreational Drug Use: Yes Drugs: Cocaine, Marijuana Hx Prescription Drug Abuse: No - Advance Directive Resuscitation Status: Full Code Family History Family History: DM, Other - asthma brother Parental Family History Reviewed: No Children Family History Reviewed: No Sibling(s) Family History Reviewed.: No Medication/Allergy Home Medications: Albuterol Sulfate [Proair Respiclick] 2 inh IH Q4HP PRN 09/17/16 Alfuzosin HCl [Alfuzosin HCl ER] 10 mg PO DAILY 09/17/16 Aspirin [Aspirin 81 mg Chewable Tablet] 81 mg PO DAILY 09/17/16 Budesonide [Pulmicort] 1 mg IH Q12 09/17/16 Budesonide/Formoterol Fumarate [Symbicort Hfa 160-4.5 Mcg Inhaler 6 gm] 2 puff IH Q12 09/17/16 Cetirizine HCl [Zyrtec 10 mg Tablet] 10 mg PO QHS 09/17/16 Clobetasol Propionate/Emoll [Clobetasol Emollient 0.05% Crm] 1 applic TP BIDP PRN 09/17/16 Diltiazem HCl [Diltiazem 24Hr Cd] 240 mg PO DAILY 09/17/16 Epinephrine [Epipen] 0.3 mg INJ DAILYP PRN 09/17/16 Hydralazine HCl [Apresoline 25 mg Tablet] 25 mg PO Q12 09/17/16 Ipratropium/Albuterol Sulfate [Duoneb 3 ml Ampul] 3 ml NEB RTQ4HP PRN 09/17/16 Losartan Potassium [Cozaar 100 mg Tablet] 100 mg PO DAILY 09/17/16 Magnesium Oxide [Mag-Ox 400 mg Tablet] 400 mg PO BID 09/17/16 Montelukast Sodium [Singulair 10 mg Tablet] 10 mg PO QHS 09/17/16 Omalizumab [Xolair Inj 150 Mg Vial] 150 mg SUBCUT [id number] 09/17/16 Omeprazole 40 mg PO DAILY 09/17/16 Pimecrolimus [Elidel] 1 applic TP BID 09/17/16 Prednisone 25 mg PO DAILY 09/17/16 Spironolactone [Aldactone 25 mg Tablet] 25 mg PO DAILY 09/17/16 Tiotropium [place] [Spiriva Respimat] 2 puff IH DAILY 09/17/16 Atorvastatin Calcium [Lipitor 10 mg Tablet] 10 mg PO QHS 09/18/16 Clonidine HCl [Catapres] 0.1 mg PO Q12 09/18/16 Furosemide [Lasix] 40 mg PO BID 09/18/16 Hum Insulin NPH/Reg Insulin Hm [Novolin 70-30 100 Unit/Ml Vial] 20 unit SQ BID 09/18/16 Allergies/Adverse Reactions: No Known Allergies Allergy (Verified 09/12/16 08:09) Physical Exam Vital Signs: Temp Pulse Resp BP Pulse Ox 97.8 F 85 14 136/82 H 100 09/19/16 12:00 09/19/16 12:00 09/19/16 12:00 09/19/16 12:00 09/19/16 12:00 Intake & Output 09/18/16 09/19/16 09/20/16 06:59 06:59 06:59 Intake Total 806 1306 Output Total 1677 0840 Balance -269 -604 Weight 111.5 kg General appearance: PRESENT: disheveled, mild distress, morbidly obese, well- developed Head exam: PRESENT: atraumatic, normocephalic Eye exam: PRESENT: conjunctiva pale, EOMI Mouth exam: PRESENT: dry mucosa, neck supple Neck exam: ABSENT: carotid bruit, JVD, lymphadenopathy, thyromegaly Respiratory exam: PRESENT: decreased breath sounds, prolonged expiratory phas, rales, rhonchi, symmetrical, wheezes Cardiovascular exam: PRESENT: irregular rhythm Pulses: PRESENT: normal radial pulses GI/Abdominal exam: PRESENT: normal bowel sounds, soft. ABSENT: distended, guarding, mass, organolmegaly, rebound, tenderness Rectal exam: PRESENT: deferred Musculoskeletal exam: PRESENT: normal inspection Neurological exam: PRESENT: alert, awake Psychiatric exam: PRESENT: normal mood Skin exam: PRESENT: dry, warm Results Laboratory Results: 09/19/16 05:36 09/18/16 09/19/16 17:10 05:36 Sodium 124.9 L Potassium 4.9 Chloride 89 L Carbon Dioxide 25 Anion Gap 11 BUN 30 H Creatinine 1.44 H Est GFR ( Amer) 59 L Est GFR (Non-Af Amer) 49 L Glucose 278 H Calcium 9.5 Magnesium 2.3 09/18/16 08:06 Nasophary ([facility] Only) MRSA Surveillance Culture - Final NO MRSA RECOVERED Impressions: Chest X-Ray 09/17/16 13:55 IMPRESSION: No acute cardiopulmonary disease. Assessment & Plan - Diagnosis (1) Body mass index (BMI) of 40.0-44.9 in adult Is this a current diagnosis for this admission?: Yes (2) Chronic diastolic heart failure Is this a current diagnosis for this admission?: Yes (3) Paroxysmal atrial fibrillation Is this a current diagnosis for this admission?: Yes (4) Asthma exacerbation Is this a current diagnosis for this admission?: Yes
[2016-09-19] MEDS ORDERED: BUDESONIDE NEB 0.5 MG/2 ML AMPUL NEB PRN (14:00)
[2016-09-19] MEDS: ATORVASTATIN CALCIUM 40 MG TABLET PO SCH (22:31)
[2016-09-19] MEDS: CETIRIZINE 10 MG TABLET PO SCH (22:31)
[2016-09-19] MEDS: MONTELUKAST SODIUM 10 MG TABLET PO SCH (22:31)
[2016-09-20 05:59] LABS: ANION GAP 10 (5-19); BLOOD UREA NITROGEN 28 mg/dL (7-20); CALCIUM 9.9 mg/dL (8.4-10.2); CARBON DIOXIDE 26 mmol/L (22-30); CHLORIDE 92 mmol/L (98-107); CREATININE RESULT 1.25 mg/dL (0.52-1.25); GLUCOSE 89 mg/dL (75-110); POTASSIUM 4.8 mmol/L (3.6-5.0); SODIUM 128.4 mmol/L (137-145)
[2016-09-20] MEDS: HEPARIN SOD (PORCINE) 5,000 UNIT/ML 1 ML SYRINGE SUBCUT SCH ×3 (06:36→21:39)
--- NOTE | 2016-09-20 07:26 | PDOC PROGRESS REPORT ---
Subjective Progress Note for:: 09/20/16 Subjective:: dyspnea improving. At home could barely get to bath room. Physical Exam Vital Signs: Temp Pulse Resp BP Pulse Ox 98.0 F 80 14 129/74 H 100 09/20/16 04:00 09/20/16 04:00 09/20/16 04:00 09/20/16 04:00 09/20/16 04:00 Intake & Output 09/18/16 09/19/16 09/20/16 07:59 07:59 07:59 Intake Total 806 1306 506 Output Total 1075 1910 1150 Balance -269 -604 -644 Weight 245 lb 13.047 oz 250 lb 3.594 oz General appearance: PRESENT: no acute distress Respiratory exam: PRESENT: prolonged expiratory phas, wheezes - mild Cardiovascular exam: ABSENT: diastolic murmur, irregular rhythm, systolic murmur GI/Abdominal exam: ABSENT: mass, organolmegaly, tenderness Extremities exam: ABSENT: pedal edema Neurological exam: PRESENT: oriented to situation Psychiatric exam: PRESENT: appropriate affect Results Laboratory Results: 09/20/16 05:16 09/20/16 05:16 Sodium 128.4 L Potassium 4.8 Chloride 92 L Carbon Dioxide 26 Anion Gap 10 BUN 28 H Creatinine 1.25 Est GFR ( Amer) > 60 Est GFR (Non-Af Amer) 57 L Glucose 89 Calcium 9.9 09/18/16 08:06 Nasophary ([facility] Only) MRSA Surveillance Culture - Final NO MRSA RECOVERED Impressions: Chest X-Ray 09/17/16 13:55 IMPRESSION: No acute cardiopulmonary disease. Assessment & Plan - Diagnosis (1) Status asthmaticus Qualifiers: Asthma severity: severe persistent Qualified Code(s): J45.52 - Severe persistent asthma with status asthmaticus Is this a current diagnosis for this admission?: YesPlan: improving on extra prednisone. Pulmonary suggestions pending. (2) Paroxysmal atrial fibrillation Is this a current diagnosis for this admission?: Yes (3) Acute and chronic respiratory failure with hypoxia Is this a current diagnosis for this admission?: Yes (4) Body mass index (BMI) of 40.0-44.9 in adult Is this a current diagnosis for this admission?: Yes (5) Systemic inflammatory response syndrome (sirs) of non-infectious origin with acute organ dysfunction Is this a current diagnosis for this admission?: Yes (6) Acute kidney failure with tubular necrosis Is this a current diagnosis for this admission?: YesPlan: cr improving (7) Cocaine abuse, uncomplicated Is this a current diagnosis for this admission?: YesPlan: last 30y ago (8) Hyponatremia Is this a current diagnosis for this admission?: YesPlan: improving off furosemide, spironolactone, and losartan. Suspect some IADH. Restrict fluids 1200
[2016-09-20] MEDS: HUM INSULIN NPH/REG INSULIN HM 100 UNIT/1 ML 3 ML SUBCUT SCH ×2 (07:57→16:21)
[2016-09-20] MEDS: IPRATROPIUM/ALBUTEROL 0.5-2.5 MG/3 ML AMPUL NEB PRN ×3 (08:10→20:09)
[2016-09-20] MEDS: BUDESONIDE NEB 0.5 MG/2 ML AMPUL NEB SCH ×2 (08:10→20:09)
[2016-09-20] MEDS: HYDRALAZINE HCL 25 MG TABLET PO SCH ×2 (12:09→21:38)
[2016-09-20] MEDS: DILTIAZEM HCL 240 MG CAPSULE.CR PO SCH (12:09)
[2016-09-20] MEDS: PREDNISONE 20 MG TABLET PO SCH (12:09)
[2016-09-20] MEDS: FAMOTIDINE 20 MG TABLET PO SCH ×2 (12:10→21:38)
[2016-09-20] MEDS: ASPIRIN 81 MG TABLET, CHEWABLE PO SCH (12:10)
[2016-09-20] MEDS: TAMSULOSIN HCL 0.4 MG CAP.SR.24H PO SCH (12:11)
[2016-09-20] MEDS: CETIRIZINE 10 MG TABLET PO SCH (21:37)
[2016-09-20] MEDS: ATORVASTATIN CALCIUM 40 MG TABLET PO SCH (21:37)
[2016-09-20] MEDS: MONTELUKAST SODIUM 10 MG TABLET PO SCH (21:38)
[2016-09-21] MEDS: IPRATROPIUM/ALBUTEROL 0.5-2.5 MG/3 ML AMPUL NEB PRN ×3 (01:41→20:09)
[2016-09-21] MEDS: HEPARIN SOD (PORCINE) 5,000 UNIT/ML 1 ML SYRINGE SUBCUT SCH ×3 (06:08→22:15)
[2016-09-21 06:39] LABS: ANION GAP 11 (5-19); BLOOD UREA NITROGEN 31 mg/dL (7-20); CALCIUM 9.6 mg/dL (8.4-10.2); CARBON DIOXIDE 24 mmol/L (22-30); CHLORIDE 93 mmol/L (98-107); CREATININE RESULT 1.24 mg/dL (0.52-1.25); GLUCOSE 159 mg/dL (75-110); SODIUM 127.5 mmol/L (137-145)
--- NOTE | 2016-09-21 07:52 | PDOC PROGRESS REPORT ---
Subjective Progress Note for:: 09/21/16 Subjective:: dyspnea improving steadily but not back to baseline. Physical Exam Vital Signs: Temp Pulse Resp BP Pulse Ox 98.2 F 83 24 H 147/83 H 100 09/21/16 03:52 09/21/16 03:52 09/21/16 03:52 09/21/16 03:52 09/21/16 03:52 Intake & Output 09/19/16 09/20/16 09/21/16 07:59 07:59 07:59 Intake Total 9879 197 6653 Output Total 1910 1150 2600 Balance -603 -314 -1448 Weight 245 lb 13.047 oz 250 lb 3.594 oz 251 lb 1.704 oz General appearance: PRESENT: no acute distress Respiratory exam: PRESENT: wheezes - moderate Cardiovascular exam: PRESENT: irregular rhythm - skips. ABSENT: diastolic murmur, systolic murmur Rectal exam: ABSENT: tenderness Extremities exam: ABSENT: pedal edema Neurological exam: PRESENT: oriented to situation Psychiatric exam: PRESENT: appropriate affect Results Laboratory Results: 09/21/16 05:07 09/21/16 05:07 Sodium 127.5 L Potassium 5.0 Chloride 93 L Carbon Dioxide 24 Anion Gap 11 BUN 31 H Creatinine 1.24 Est GFR ( Amer) > 60 Est GFR (Non-Af Amer) 58 L Glucose 159 H Calcium 9.6 Impressions: Chest X-Ray 09/17/16 13:55 IMPRESSION: No acute cardiopulmonary disease. Assessment & Plan - Diagnosis (1) Status asthmaticus Qualifiers: Asthma severity: severe persistent Qualified Code(s): J45.52 - Severe persistent asthma with status asthmaticus Is this a current diagnosis for this admission?: YesPlan: improving on Dr Aguilar's pulmicort too (2) Paroxysmal atrial fibrillation Is this a current diagnosis for this admission?: Yes (3) Acute and chronic respiratory failure with hypoxia Is this a current diagnosis for this admission?: Yes (4) Body mass index (BMI) of 40.0-44.9 in adult Is this a current diagnosis for this admission?: Yes (5) Systemic inflammatory response syndrome (sirs) of non-infectious origin with acute organ dysfunction Is this a current diagnosis for this admission?: Yes (6) Acute kidney failure with tubular necrosis Is this a current diagnosis for this admission?: YesPlan: cr back to baseline (7) Cocaine abuse, uncomplicated Is this a current diagnosis for this admission?: Yes (8) Hyponatremia Is this a current diagnosis for this admission?: YesPlan: creeping up. Now 128
[2016-09-21] MEDS: HUM INSULIN NPH/REG INSULIN HM 100 UNIT/1 ML 3 ML SUBCUT SCH ×2 (08:13→16:09)
[2016-09-21] MEDS: BUDESONIDE NEB 0.5 MG/2 ML AMPUL NEB SCH ×2 (08:31→20:09)
[2016-09-21] MEDS: FLUTICASONE NASAL SPRAY 50 MCG/SPRY 120 SPRAY/16 GM NASL SCH (10:10)
[2016-09-21] MEDS: HYDRALAZINE HCL 25 MG TABLET PO SCH ×2 (10:11→22:15)
[2016-09-21] MEDS: ASPIRIN 81 MG TABLET, CHEWABLE PO SCH (10:11)
[2016-09-21] MEDS: PREDNISONE 20 MG TABLET PO SCH (10:11)
[2016-09-21] MEDS: DILTIAZEM HCL 240 MG CAPSULE.CR PO SCH (10:12)
[2016-09-21] MEDS: FAMOTIDINE 20 MG TABLET PO SCH ×2 (10:12→22:15)
[2016-09-21] MEDS: TAMSULOSIN HCL 0.4 MG CAP.SR.24H PO SCH (10:12)
[2016-09-21] MEDS: ATORVASTATIN CALCIUM 40 MG TABLET PO SCH (22:15)
[2016-09-21] MEDS: CETIRIZINE 10 MG TABLET PO SCH (22:15)
[2016-09-21] MEDS: MONTELUKAST SODIUM 10 MG TABLET PO SCH (22:15)
--- NOTE | 2016-09-22 05:12 | PDOC PROGRESS REPORT ---
Subjective Progress Note for:: 09/22/16 Subjective:: better exercise tolerance but not baseline Physical Exam Vital Signs: Temp Pulse Resp BP Pulse Ox 98.1 F 83 20 125/62 99 09/22/16 04:00 09/22/16 04:00 09/22/16 04:00 09/22/16 04:00 09/22/16 04:00 Intake & Output 09/20/16 09/21/16 09/22/16 07:59 07:59 07:59 Intake Total 506 1156 1140 Output Total 1150 2600 1050 Balance -644 -1444 90 Weight 250 lb 3.594 oz 251 lb 1.704 oz General appearance: PRESENT: no acute distress Respiratory exam: PRESENT: prolonged expiratory phas, wheezes - moderate Cardiovascular exam: ABSENT: diastolic murmur, irregular rhythm, systolic murmur GI/Abdominal exam: ABSENT: tenderness Extremities exam: ABSENT: pedal edema Results Laboratory Results: 09/21/16 05:07 09/21/16 05:07 Sodium 127.5 L Potassium 5.0 Chloride 93 L Carbon Dioxide 24 Anion Gap 11 BUN 31 H Creatinine 1.24 Est GFR ( Amer) > 60 Est GFR (Non-Af Amer) 58 L Glucose 159 H Calcium 9.6 Impressions: Chest X-Ray 09/17/16 13:55 IMPRESSION: No acute cardiopulmonary disease. Assessment & Plan - Diagnosis (1) Status asthmaticus Qualifiers: Asthma severity: severe persistent Qualified Code(s): J45.52 - Severe persistent asthma with status asthmaticus Is this a current diagnosis for this admission?: YesPlan: steady improvement. ?home in am (2) Paroxysmal atrial fibrillation Is this a current diagnosis for this admission?: Yes (3) Acute and chronic respiratory failure with hypoxia Is this a current diagnosis for this admission?: Yes (4) Body mass index (BMI) of 40.0-44.9 in adult Is this a current diagnosis for this admission?: Yes (5) Systemic inflammatory response syndrome (sirs) of non-infectious origin with acute organ dysfunction Is this a current diagnosis for this admission?: Yes (6) Acute kidney failure with tubular necrosis Is this a current diagnosis for this admission?: Yes (7) Cocaine abuse, uncomplicated Is this a current diagnosis for this admission?: Yes (8) Hyponatremia Is this a current diagnosis for this admission?: Yes
[2016-09-22] MEDS: HEPARIN SOD (PORCINE) 5,000 UNIT/ML 1 ML SYRINGE SUBCUT SCH ×3 (06:07→22:30)
[2016-09-22 06:55] LABS: ANION GAP 11 (5-19); BLOOD UREA NITROGEN 28 mg/dL (7-20); CALCIUM 9.8 mg/dL (8.4-10.2); CARBON DIOXIDE 24 mmol/L (22-30); CHLORIDE 95 mmol/L (98-107); CREATININE RESULT 1.22 mg/dL (0.52-1.25); GLUCOSE 110 mg/dL (75-110); POTASSIUM 4.6 mmol/L (3.6-5.0)
[2016-09-22] MEDS: HUM INSULIN NPH/REG INSULIN HM 100 UNIT/1 ML 3 ML SUBCUT SCH ×2 (07:41→15:58)
[2016-09-22] MEDS: IPRATROPIUM/ALBUTEROL 0.5-2.5 MG/3 ML AMPUL NEB PRN ×2 (08:02→20:26)
[2016-09-22] MEDS: BUDESONIDE NEB 0.5 MG/2 ML AMPUL NEB SCH ×2 (08:02→20:26)
[2016-09-22] MEDS: ASPIRIN 81 MG TABLET, CHEWABLE PO SCH (09:26)
[2016-09-22] MEDS: DILTIAZEM HCL 240 MG CAPSULE.CR PO SCH (09:26)
[2016-09-22] MEDS: PREDNISONE 20 MG TABLET PO SCH (09:27)
[2016-09-22] MEDS: FAMOTIDINE 20 MG TABLET PO SCH ×2 (09:27→22:30)
[2016-09-22] MEDS: HYDRALAZINE HCL 25 MG TABLET PO SCH ×2 (09:27→22:31)
[2016-09-22] MEDS: TAMSULOSIN HCL 0.4 MG CAP.SR.24H PO SCH (09:29)
[2016-09-22] MEDS: FLUTICASONE NASAL SPRAY 50 MCG/SPRY 120 SPRAY/16 GM NASL SCH (09:29)
[2016-09-22] MEDS: MONTELUKAST SODIUM 10 MG TABLET PO SCH (22:30)
[2016-09-22] MEDS: CETIRIZINE 10 MG TABLET PO SCH (22:30)
[2016-09-22] MEDS: ATORVASTATIN CALCIUM 40 MG TABLET PO SCH (22:31)
[2016-09-23] MEDS: HEPARIN SOD (PORCINE) 5,000 UNIT/ML 1 ML SYRINGE SUBCUT SCH ×3 (05:49→21:26)
[2016-09-23 06:58] LABS: ANION GAP 12 (5-19); BLOOD UREA NITROGEN 24 mg/dL (7-20); CALCIUM 9.5 mg/dL (8.4-10.2); CARBON DIOXIDE 22 mmol/L (22-30); CHLORIDE 96 mmol/L (98-107); CREATININE RESULT 1.11 mg/dL (0.52-1.25); GLUCOSE 114 mg/dL (75-110); POTASSIUM 4.6 mmol/L (3.6-5.0); SODIUM 129.7 mmol/L (137-145)
[2016-09-23] MEDS: HUM INSULIN NPH/REG INSULIN HM 100 UNIT/1 ML 3 ML SUBCUT SCH ×2 (07:48→15:57)
[2016-09-23] MEDS: BUDESONIDE NEB 0.5 MG/2 ML AMPUL NEB SCH ×2 (08:03→19:55)
[2016-09-23] MEDS: IPRATROPIUM/ALBUTEROL 0.5-2.5 MG/3 ML AMPUL NEB PRN ×2 (08:03→19:55)
--- NOTE | 2016-09-23 08:09 | PDOC PROGRESS REPORT ---
Subjective Progress Note for:: 09/23/16 Subjective:: winded going to bath room Physical Exam Vital Signs: Temp Pulse Resp BP Pulse Ox 97.9 F 78 15 152/81 H 100 09/23/16 07:08 09/23/16 07:08 09/23/16 07:08 09/23/16 07:08 09/23/16 07:08 Intake & Output 09/22/16 09/23/16 09/24/16 07:59 07:59 07:59 Intake Total 1690 2050 Output Total 2374 2301 Balance -685 -251 Weight 249 lb 12.54 oz 248 lb 7.375 oz General appearance: PRESENT: mild distress Respiratory exam: PRESENT: wheezes - mild Cardiovascular exam: ABSENT: diastolic murmur, irregular rhythm, systolic murmur Extremities exam: ABSENT: pedal edema Neurological exam: PRESENT: oriented to situation Psychiatric exam: PRESENT: appropriate affect Results Laboratory Results: 09/23/16 05:13 09/23/16 05:13 Sodium 129.7 L Potassium 4.6 Chloride 96 L Carbon Dioxide 22 Anion Gap 12 BUN 24 H Creatinine 1.11 Est GFR ( Amer) > 60 Est GFR (Non-Af Amer) > 60 Glucose 114 H Calcium 9.5 Impressions: Chest X-Ray 09/17/16 13:55 IMPRESSION: No acute cardiopulmonary disease. Assessment & Plan - Diagnosis (1) Status asthmaticus Qualifiers: Asthma severity: severe persistent Qualified Code(s): J45.52 - Severe persistent asthma with status asthmaticus Is this a current diagnosis for this admission?: YesPlan: just quit working at [email or web address] with his nebulizer. Worst asthma I have seen. Consider home tomorrow. (2) Paroxysmal atrial fibrillation Is this a current diagnosis for this admission?: Yes (3) Acute and chronic respiratory failure with hypoxia Is this a current diagnosis for this admission?: Yes (4) Body mass index (BMI) of 40.0-44.9 in adult Is this a current diagnosis for this admission?: Yes (5) Systemic inflammatory response syndrome (sirs) of non-infectious origin with acute organ dysfunction Is this a current diagnosis for this admission?: Yes (6) Acute kidney failure with tubular necrosis Is this a current diagnosis for this admission?: Yes (7) Cocaine abuse, uncomplicated Is this a current diagnosis for this admission?: Yes (8) Hyponatremia Is this a current diagnosis for this admission?: Yes
[2016-09-23] MEDS: FLUTICASONE NASAL SPRAY 50 MCG/SPRY 120 SPRAY/16 GM NASL SCH (09:17)
[2016-09-23] MEDS: DILTIAZEM HCL 240 MG CAPSULE.CR PO SCH (09:17)
[2016-09-23] MEDS: PREDNISONE 20 MG TABLET PO SCH (09:18)
[2016-09-23] MEDS: HYDRALAZINE HCL 25 MG TABLET PO SCH ×2 (09:18→21:26)
[2016-09-23] MEDS: TAMSULOSIN HCL 0.4 MG CAP.SR.24H PO SCH (09:18)
[2016-09-23] MEDS: ASPIRIN 81 MG TABLET, CHEWABLE PO SCH (09:18)
[2016-09-23] MEDS: FAMOTIDINE 20 MG TABLET PO SCH ×2 (09:19→21:26)
--- NOTE | 2016-09-23 15:15 | PDOC PROGRESS REPORT ---
Subjective Progress Note for:: 09/20/16 Subjective:: continued SOB and cough Physical Exam Vital Signs: Temp Pulse Resp BP Pulse Ox 98.0 F 89 22 H 154/87 H 99 09/21/16 10:48 09/21/16 14:00 09/21/16 10:48 09/21/16 10:48 09/21/16 10:48 Intake & Output 09/20/16 09/21/16 09/22/16 06:59 06:59 06:59 Intake Total 506 1156 840 Output Total 1150 2600 600 Balance -644 -1444 240 Weight 113.5 kg 113.9 kg General appearance: PRESENT: cooperative, disheveled, mild distress, morbidly obese Head exam: PRESENT: atraumatic, normocephalic Eye exam: PRESENT: conjunctiva pale, EOMI Mouth exam: PRESENT: moist, neck supple Neck exam: ABSENT: carotid bruit, JVD, lymphadenopathy, thyromegaly Respiratory exam: PRESENT: decreased breath sounds, prolonged expiratory phas, rhonchi, symmetrical, wheezes Cardiovascular exam: PRESENT: RRR, +S1, +S2 Pulses: PRESENT: normal radial pulses GI/Abdominal exam: PRESENT: normal bowel sounds, soft. ABSENT: distended, guarding, mass, organolmegaly, rebound, tenderness Rectal exam: PRESENT: deferred Extremities exam: PRESENT: +1 edema Neurological exam: PRESENT: alert, awake Skin exam: PRESENT: dry, warm Results Laboratory Results: 09/21/16 05:07 09/21/16 05:07 Sodium 127.5 L Potassium 5.0 Chloride 93 L Carbon Dioxide 24 Anion Gap 11 BUN 31 H Creatinine 1.24 Est GFR ( Amer) > 60 Est GFR (Non-Af Amer) 58 L Glucose 159 H Calcium 9.6 Impressions: Chest X-Ray 09/17/16 13:55 IMPRESSION: No acute cardiopulmonary disease. Assessment & Plan - Diagnosis (1) Body mass index (BMI) of 40.0-44.9 in adult Is this a current diagnosis for this admission?: Yes (2) Chronic diastolic heart failure Is this a current diagnosis for this admission?: Yes (3) Paroxysmal atrial fibrillation Is this a current diagnosis for this admission?: Yes (4) Asthma exacerbation Is this a current diagnosis for this admission?: Yes
--- NOTE | 2016-09-23 15:19 | PDOC PROGRESS REPORT ---
Subjective Progress Note for:: 09/21/16 Subjective:: slightly improved SOB and less cough Physical Exam Vital Signs: Temp Pulse Resp BP Pulse Ox 98.0 F 89 22 H 154/87 H 99 09/21/16 10:48 09/21/16 14:00 09/21/16 10:48 09/21/16 10:48 09/21/16 10:48 Intake & Output 09/20/16 09/21/16 09/22/16 06:59 06:59 06:59 Intake Total 506 1156 840 Output Total 1150 2600 600 Balance -644 -1444 240 Weight 113.5 kg 113.9 kg General appearance: PRESENT: no acute distress, cooperative, disheveled, morbidly obese Head exam: PRESENT: atraumatic, normocephalic Eye exam: PRESENT: conjunctiva pale, EOMI Mouth exam: PRESENT: moist, neck supple Neck exam: ABSENT: carotid bruit, JVD, lymphadenopathy, thyromegaly Respiratory exam: PRESENT: crackles, decreased breath sounds, prolonged expiratory phas, symmetrical, wheezes Cardiovascular exam: PRESENT: irregular rhythm Pulses: PRESENT: normal radial pulses GI/Abdominal exam: PRESENT: normal bowel sounds, soft. ABSENT: distended, guarding, mass, organolmegaly, rebound, tenderness Rectal exam: PRESENT: deferred Extremities exam: PRESENT: +1 edema Neurological exam: PRESENT: alert, awake Skin exam: PRESENT: warm Results Laboratory Results: 09/21/16 05:07 09/21/16 05:07 Sodium 127.5 L Potassium 5.0 Chloride 93 L Carbon Dioxide 24 Anion Gap 11 BUN 31 H Creatinine 1.24 Est GFR ( Amer) > 60 Est GFR (Non-Af Amer) 58 L Glucose 159 H Calcium 9.6 Impressions: Chest X-Ray 09/17/16 13:55 IMPRESSION: No acute cardiopulmonary disease. Assessment & Plan - Diagnosis (1) Body mass index (BMI) of 40.0-44.9 in adult Is this a current diagnosis for this admission?: Yes (2) Chronic diastolic heart failure Is this a current diagnosis for this admission?: Yes (3) Paroxysmal atrial fibrillation Is this a current diagnosis for this admission?: Yes (4) Asthma exacerbation Is this a current diagnosis for this admission?: Yes
[2016-09-23] MEDS: MONTELUKAST SODIUM 10 MG TABLET PO SCH (21:26)
[2016-09-23] MEDS: CETIRIZINE 10 MG TABLET PO SCH (21:26)
[2016-09-23] MEDS: ATORVASTATIN CALCIUM 40 MG TABLET PO SCH (21:27)
[2016-09-24] MEDS: HEPARIN SOD (PORCINE) 5,000 UNIT/ML 1 ML SYRINGE SUBCUT SCH (05:12)
[2016-09-24 05:21] LABS: ANION GAP 13 (5-19); BLOOD UREA NITROGEN 25 mg/dL (7-20); CALCIUM 9.4 mg/dL (8.4-10.2); CARBON DIOXIDE 20 mmol/L (22-30); CHLORIDE 97 mmol/L (98-107); CREATININE RESULT 1.08 mg/dL (0.52-1.25); GLUCOSE 144 mg/dL (75-110); POTASSIUM 4.7 mmol/L (3.6-5.0); SODIUM 129.6 mmol/L (137-145)
[2016-09-24 08:11] VITALS: BP 150/90
[2016-09-24] MEDS: BUDESONIDE NEB 0.5 MG/2 ML AMPUL NEB SCH (08:16)
[2016-09-24] MEDS: IPRATROPIUM/ALBUTEROL 0.5-2.5 MG/3 ML AMPUL NEB PRN (08:16)
--- NOTE | 2016-09-24 08:16 | PDOC DISCHARGE SUMMARY ---
General - Admit/Disc Date/PCP Admission Date/Primary Care Provider: 09/17/16 16:00 MARY BETH NEELY MD Discharge Date: 09/24/16 - Discharge Diagnosis (1) Status asthmaticus Is this a current diagnosis for this admission?: YesSummary: approaching baseline which is very limiting. Quit work. Home on baseline prednisone 25mg qd. (2) Acute kidney failure with tubular necrosis Is this a current diagnosis for this admission?: YesSummary: cr now 1.1 off diuretics (3) Hyponatremia Is this a current diagnosis for this admission?: YesSummary: slowly improved off diuretics & arb with fluid restriction. Suspect IADH (4) Paroxysmal atrial fibrillation Is this a current diagnosis for this admission?: YesSummary: not this time (5) Acute and chronic respiratory failure with hypoxia Is this a current diagnosis for this admission?: YesSummary: not oxygen dependent yet (6) Systemic inflammatory response syndrome (sirs) of non-infectious origin with acute organ dysfunction Is this a current diagnosis for this admission?: Yes (7) Body mass index (BMI) of 40.0-44.9 in adult Is this a current diagnosis for this admission?: Yes (8) Cocaine abuse, uncomplicated Is this a current diagnosis for this admission?: YesSummary: 30y ago - Additional Information Resuscitation Status: Full Code Discharge Diet: Diabetic Discharge Activity: Activity As Tolerated Home Medications: Albuterol Sulfate [Proair Respiclick] 2 inh IH Q4HP PRN 09/17/16 Alfuzosin HCl [Alfuzosin HCl ER] 10 mg PO DAILY 09/17/16 Aspirin [Aspirin 81 mg Chewable Tablet] 81 mg PO DAILY 09/17/16 Budesonide [Pulmicort Neb 1 mg/2 mL Ampule] 1 mg IH Q12 09/17/16 Budesonide/Formoterol Fumarate [Symbicort HFA 160-4.5 mcg Inhaler 6 gm] 2 puff IH Q12 09/17/16 Cetirizine HCl [Zyrtec 10 mg Tablet] 10 mg PO QHS 09/17/16 Clobetasol Propionate/Emoll [Clobetasol Emollient 0.05% Crm] 1 applic TP BIDP PRN 09/17/16 Diltiazem HCl [Diltiazem 24Hr Cd] 240 mg PO DAILY 09/17/16 Epinephrine [Epipen] 0.3 mg INJ DAILYP PRN 09/17/16 Hydralazine HCl [Apresoline 25 mg Tablet] 25 mg PO Q12 09/17/16 Ipratropium/Albuterol Sulfate [Duoneb 3 ml Ampul] 3 ml NEB RTQ4HP PRN 09/17/16 Magnesium Oxide [Mag-Ox 400 mg Tablet] 400 mg PO BID 09/17/16 Montelukast Sodium [Singulair 10 mg Tablet] 10 mg PO QHS 09/17/16 Omalizumab [Xolair Inj 150 mg Vial] 150 mg SUBCUT [id number] 09/17/16 Omeprazole 40 mg PO DAILY 09/17/16 Pimecrolimus [Elidel] 1 applic TP BID 09/17/16 Prednisone 25 mg PO DAILY 09/17/16 Tiotropium [place] [Spiriva Respimat] 2 puff IH DAILY 09/17/16 Atorvastatin Calcium [Lipitor 10 mg Tablet] 10 mg PO QHS 09/18/16 Clonidine HCl [Catapres] 0.1 mg PO Q12 09/18/16 Hum Insulin NPH/Reg Insulin Hm [Novolin 70-30 100 Unit/ml Vial] 20 unit SQ BID 09/18/16 Fluticasone Propionate [Flonase Nasal [place] 50 Mcg/[place] 16 gm] 2 spray NASL DAILY #1 spray.pump 09/24/16 History of Present Illness History of Present Illness: YURI FOSTER JR is a 71 year old male, never smoker with asthma since age 7 on xolair and prednisone 25mg qd from Dr Caro. 2w ago he had moderate wheeze. I switched his metoprolol for vt & af to dilltiazem. His wheeze worsened. Yesterday sent him to ER. Hospital Course Hospital Course: as above Physical Exam Vital Signs: Temp Pulse Resp BP Pulse Ox 97.3 F 78 13 118/64 96 09/24/16 07:43 09/24/16 07:43 09/24/16 07:43 09/24/16 07:43 09/24/16 07:43 Intake & Output 09/23/16 09/24/16 09/25/16 07:59 07:59 07:59 Intake Total 2050 1000 Output Total 2301 1375 Balance -251 -375 Weight 248 lb 7.375 oz 246 lb 7.629 oz General appearance: PRESENT: no acute distress Respiratory exam: PRESENT: wheezes - slight Cardiovascular exam: ABSENT: diastolic murmur, irregular rhythm, systolic murmur GI/Abdominal exam: ABSENT: mass, organolmegaly, tenderness Extremities exam: ABSENT: pedal edema Neurological exam: PRESENT: oriented to situation Psychiatric exam: PRESENT: appropriate affect Skin exam: PRESENT: other - cushinoid Results Laboratory Results: 09/24/16 04:11 09/24/16 04:11 Sodium 129.6 L Potassium 4.7 Chloride 97 L Carbon Dioxide 20 L Anion Gap 13 BUN 25 H Creatinine 1.08 Est GFR ( Amer) > 60 Est GFR (Non-Af Amer) > 60 Glucose 144 H Calcium 9.4 Impressions: Chest X-Ray 09/17/16 13:55 IMPRESSION: No acute cardiopulmonary disease. Qualifiers PATEINT BEING DISCHARGED WITH ANY OF THE FOLLOWING DIAGNOSIS?: No Plan Discharge Plan: home. 8d ov
[2016-09-24] MEDS: DILTIAZEM HCL 240 MG CAPSULE.CR PO SCH (09:22)
[2016-09-24] MEDS: TAMSULOSIN HCL 0.4 MG CAP.SR.24H PO SCH (09:23)
[2016-09-24] MEDS: PREDNISONE 20 MG TABLET PO SCH (09:23)
[2016-09-24] MEDS: ASPIRIN 81 MG TABLET, CHEWABLE PO SCH (09:23)
[2016-09-24] MEDS: HUM INSULIN NPH/REG INSULIN HM 100 UNIT/1 ML 3 ML SUBCUT SCH (09:23)
[2016-09-24] MEDS: HYDRALAZINE HCL 25 MG TABLET PO SCH (09:23)
[2016-09-24] MEDS: FAMOTIDINE 20 MG TABLET PO SCH (09:23)
[2016-09-24] MEDS: FLUTICASONE NASAL SPRAY 50 MCG/SPRY 120 SPRAY/16 GM NASL SCH (09:24)
== END 2016-09-24 10:25 | disposition home or self-care (01) | DRG 202 ==
LOC: ER 13:49 → EH 16:00 → UNDOADMIN 16:45 → 4S 19:10
DX: J45.52 Severe persistent asthma with status asthmaticus (principal); J96.21 Acute and chronic respiratory failure with hypoxia; N17.0 Acute kidney failure with tubular necrosis; R65.11 Systemic inflammatory response syndrome (SIRS) of non-infectious origin with acute organ dysfunction; E87.1 Hypo-osmolality and hyponatremia; I50.32 Chronic diastolic (congestive) heart failure; Z68.41 Body mass index [BMI] 40.0-44.9, adult; I48.0 Paroxysmal atrial fibrillation; I11.0 Hypertensive heart disease with heart failure; K21.9 Gastro-esophageal reflux disease without esophagitis; E11.9 Type 2 diabetes mellitus without complications; C61 Malignant neoplasm of prostate; F14.10 Cocaine abuse, uncomplicated; E66.01 Morbid (severe) obesity due to excess calories; I25.2 Old myocardial infarction; Z79.82 Long term (current) use of aspirin; Z79.4 Long term (current) use of insulin; Z79.51 Long term (current) use of inhaled steroids; Z79.52 Long term (current) use of systemic steroids; Z79.899 Other long term (current) drug therapy
CPT/HCPCS: 36415; 71010; 80048; 80053; 81001; 82550; 82553; 82607; 82728; 82746; 82803; 82962; 83540; 83550; 83735; 83880; 84484; 85025; 85045; 93005; 93010; 94640; 96374; 99285; J1644; J1815; J2930; J3490; J7512; J7620

== ENCOUNTER 2016-09-30 01:34 | Inpatient (IN) | payer MEDICARE ==
--- NOTE | 2016-09-30 01:58 | ER Document Report ---
ED General - General Mode of Arrival: Ambulatory Information source: Patient TRAVEL OUTSIDE OF THE [place] IN LAST 30 DAYS: No - HPI Onset: Other <RAHUL BENNETT - Last Filed: 09/30/16 05:54> <THOR OCHOA - Last Filed: 10/22/16 11:07> - General Chief Complaint: Breathing Difficulty Stated Complaint: SHORTNESS OF BREATH Notes: Patient is a 71-year-old male that presents to the emergency department today with complaints of shortness of breath for the last couple of days. Patient also states that he "feels like someone is pumping water into his abdomen" and he has not had a bowel movement for 2 weeks. Patient states he was discharged from this facility 5 days ago after admission for CHF and asthma exacerbation. Patient denies a history of ascites or liver damage. Patient has significant abdominal distension. (RAHUL BENNETT) - Related Data Allergies/Adverse Reactions: No Known Allergies Allergy (Verified 09/12/16 08:09) Home Medications: Current Home Medications Prednisone [Deltasone 20 mg Tablet] 20 mg PO DAILY 09/30/16 [History] Past Medical History - General Information source: Patient, [facility] Records - Social History Smoking Status: Never Smoker Cigarette use (# per day): No Chew tobacco use (# tins/day): No Frequency of alcohol use: None Drug Abuse: None Family History: Reviewed & Not Pertinent, DM, Other - asthma brother - Past Medical History Cardiac Medical History: Reports: Hx Atrial Fibrillation, Hx Congestive Heart Failure - diastolic since 2016 echo., Hx Heart Attack - NSTEMI, Hx Hypercholesterolemia, Hx Hypertension Pulmonary Medical History: Reports: Hx Asthma Endocrine Medical History: Reports: Hx Diabetes Mellitus Type 2 Malignancy Medical History: Reports Hx Prostate Cancer GI Medical History: Reports: Hx Gastroesophageal Reflux Disease - 1m esophageal ulcer. DrL ablated gastric & duodenal avm. Musculoskeltal Medical History: Reports Hx Arthritis - KNEES, TOES Skin Medical History: Reports Hx Eczema Past Surgical History: Reports: Other - L cataract - Immunizations Hx Diphtheria, Pertussis, Tetanus Vaccination: Yes Hx Pneumococcal Vaccination: 03/27/16 <RAHUL BENNETT - Last Filed: 09/30/16 05:54> Review of Systems - Review of Systems Constitutional: No symptoms reported EENT: No symptoms reported Cardiovascular: No symptoms reported Respiratory: See HPI, Short of breath Gastrointestinal: See HPI, Abdominal pain, Constipation Genitourinary: No symptoms reported Male Genitourinary: No symptoms reported Musculoskeletal: No symptoms reported Skin: No symptoms reported Hematologic/Lymphatic: No symptoms reported Neurological/Psychological: No symptoms reported -: Yes All other systems reviewed and negative <RAHUL BENNETT - Last Filed: 09/30/16 05:54> Physical Exam <RAHUL BENNETT - Last Filed: 09/30/16 05:54> <THOR OCHOA - Last Filed: 10/22/16 11:07> - Vital signs Vitals: BP 156/119 H 09/30/16 01:38 - Notes Notes: Physical Exam: General: Alert, appears uncomfortable. HEENT: Normocephalic. Atraumatic. PERRL. Extraocular movements intact. Oropharynx clear. Neck: Supple. Non-tender. Respiratory: No respiratory distress. Diminished throughout, no rhonchi or rales. Cardiovascular: Regular rate and rhythm. Abdominal: Diffusely tender, significantly distended abdomen, hypoactive bowel sounds. Back: Non-tender. No deformity or step off. Extremities: Moves all four extremities. Upper extremities: Palpable abscess in the left AC with purulent drainage. Lower extremities: 2+ pitting edema bilaterally. Neurological: Normal cognition. AAOx4. Normal speech. Psychological: Normal affect. Normal Mood. Skin: Warm. Dry. Normal color. (RAHUL BENNETT) Course - Laboratory Result Diagrams: 09/30/16 02:10 09/30/16 02:10 <DONALDRAHUL - Last Filed: 09/30/16 05:54> - Laboratory Result Diagrams: 10/14/16 07:40 10/18/16 07:00 <THOR OCHOA - Last Filed: 10/22/16 11:07> - Re-evaluation Re-evalutation: 09/30/16 05:10 Patient presents emergency per with a chief complaint is shortness of breath fever and abdominal distention. Patient has an extensive past medical history of COPD asthma which she was last admitted for. He has initially on EMS arrival was difficulty breathing with wheezes they gave him Solu-Medrol and do labs. Patient states he hasn't had a bowel movement 2 weeks and has a big distended abdomen. On examination he is alert and oriented 3 no nuchal rigidity afebrile 102.8. Lungs diminished no audible wheezes rales or rhonchi. He does have trace pitting edema bilaterally significant abdominal distention with decreased bowel sounds no guarding rebound rigidity pulsatile dullness or hernias. White count came back at 26,000 with neutrophilia covered him with Akbar and Zoanyin has a left antecubital abscess which is draining pus. A wound culture and clindamycin. Abdomen is constipation but no obstruction no audible pneumonia. Spoke with Dr. Murray can admit him to the hospital further assessment and evaluation (THOR OCHOA) - Vital Signs Vital signs: Temp Pulse Resp BP Pulse Ox 98.0 F 101 H 22 H 146/83 H 100 10/18/16 14:03 10/18/16 14:03 10/18/16 14:03 10/18/16 14:03 10/18/16 14:03 - Laboratory Laboratory results interpreted by me: 09/30/16 09/30/16 09/30/16 02:10 02:10 02:10 WBC 26.8 H RBC 3.57 L Hgb 10.1 L Hct 30.2 L RDW 16.6 H Seg Neuts % (Manual) 87 H Lymphocytes % (Manual) 3 L Abs Neuts (Manual) 23.3 H Abs Monocytes (Manual) 2.7 H Sodium 122.5 L Potassium 5.2 H Chloride 89 L Carbon Dioxide 20 L BUN 33 H Creatinine 1.76 H Est GFR ( Amer) 47 L Est GFR (Non-Af Amer) 39 L Glucose 298 H Iron TIBC Total Bilirubin 1.6 H Direct Bilirubin 0.9 H Albumin 3.2 L Urine Protein 30 H Urine Glucose (UA) >=500 H Urine Ketones TRACE H Urine Blood MODERATE H Ur Leukocyte Esterase TRACE H 09/30/16 02:10 WBC RBC Hgb Hct RDW Seg Neuts % (Manual) Lymphocytes % (Manual) Abs Neuts (Manual) Abs Monocytes (Manual) Sodium Potassium Chloride Carbon Dioxide BUN Creatinine Est GFR ( Amer) Est GFR (Non-Af Amer) Glucose Iron < 10.1 L TIBC 247 L Total Bilirubin Direct Bilirubin Albumin Urine Protein Urine Glucose (UA) Urine Ketones Urine Blood Ur Leukocyte Esterase Critical Care Note - Critical Care Note Total time excluding time spent on procedures (mins): 65 <THOR OCHOA - Last Filed: 10/22/16 11:07> Discharge <RAHUL BENNETT - Last Filed: 09/30/16 05:54> - Discharge Admitting Provider: Mendez Unit Admitted: Telemetry <THOR OCHOA - Last Filed: 10/22/16 11:07> - Discharge Clinical Impression: acute COPD exacerbation, dehydration, constipation with abdominal distention, left arm abscess Condition: Stable Disposition: ADMITTED INPATIENT Scribe Attestation: 09/30/16 05:10 I personally performed the services described in the documentation reviewed the documentation recorded by my scribe in my presence and it accurately and completely records my words and actions (THOR OCHOA) Scribe Documentation - Scribe Written by Tiae:: Heatehr Wells, 09/30/2016 [id number] acting as scribe for :: Deepak <RAHUL BENNETT - Last Filed: 09/30/16 05:54>
[2016-09-30 02:24] LABS: HEMATOCRIT 30.2 % (37.9-51.0); HEMOGLOBIN 10.1 g/dL (13.5-17.0); HGB HCT DIFFERENCE 0.1; MEAN CORPUSCULAR HEMOGLOBIN 28.2 pg (27.0-33.4); MEAN CORPUSCULAR HGB CONC 33.4 g/dL (32.0-36.0); MEAN CORPUSCULAR VOLUME 85 fl (80-97); RED BLOOD COUNT 3.57 10^6/uL (4.35-5.55); RED CELL DISTRIBUTION WIDTH 16.6 % (11.5-14.0); WHITE BLOOD COUNT 26.8 10^3/uL (4.0-10.5)
[2016-09-30] MEDS ORDERED: CLINDAMYCIN 600 MG/D5W RTU 50 ML IV ONE (02:37)
[2016-09-30 02:38] LABS: AMORPHOUS SEDIMENT,URINE TRACE /HPF; APPEARANCE,URINE CLOUDY; BILIRUBIN,URINE NEGATIVE (NEGATIVE); GLUCOSE, URINE >=500 mg/dL (NEGATIVE); KETONES,URINE TRACE mg/dL (NEGATIVE); LEUKOCYTE ESTERASE,URINE TRACE (NEGATIVE); NITRITE,URINE NEGATIVE (NEGATIVE); PROTEIN,URINE 30 mg/dL (NEGATIVE); URINE SPECIFIC GRAVITY 1.009; UROBILINOGEN,URINE NEGATIVE mg/dL (<2.0)
[2016-09-30 02:39] LABS: ALANINE AMINOTRANSFERASE 63 U/L (21-72); ALBUMIN 3.2 g/dL (3.5-5.0); ALKALINE PHOSPHATASE 104 U/L (38-126); ANION GAP 14 (5-19); ASPARTATE AMINO TRANSFERASE 31 U/L (17-59); BILIRUBIN,DIRECT 0.9 mg/dL (0.0-0.4); BILIRUBIN,TOTAL 1.6 mg/dL (0.2-1.3); BLOOD UREA NITROGEN 33 mg/dL (7-20); CALCIUM 10.1 mg/dL (8.4-10.2); CARBON DIOXIDE 20 mmol/L (22-30); CHLORIDE 89 mmol/L (98-107); CREATININE RESULT 1.76 mg/dL (0.52-1.25); GLUCOSE 298 mg/dL (75-110); POTASSIUM 5.2 mmol/L (3.6-5.0); SODIUM 122.5 mmol/L (137-145); TOTAL PROTEIN 6.3 g/dL (6.3-8.2)
[2016-09-30 02:52] LABS: BASOPHILS % (MANUAL) 0 % (0-2); EOSINOPHILS % (MANUAL) 0 % (0-6); LYMPHOCYTES % (MANUAL) 3 % (13-45); NUCLEATED RED BLOOD CELLS 1 /100 WBC (0); TOTAL CELLS COUNTED 100
[2016-09-30 02:54] LABS: ANISOCYTOSIS 1+; OVALOCYTES SLIGHT; POIKILOCYTOSIS SLIGHT; TOXIC GRANULATION SLIGHT
[2016-09-30 03:06] LABS: TROPONIN I 0.043 ng/mL
[2016-09-30] MEDS ORDERED: VANCOMYCIN HCL INJ 1000 MG VIAL IV ONE (05:04)
[2016-09-30] MEDS ORDERED: PIPERACILLIN/TAZOBACTAM 3.375 GM VIAL IV ONE (05:04)
[2016-09-30] MEDS ORDERED: MINERAL OIL 30 ML UDCUP PO ONE (05:41)
[2016-09-30] MEDS ORDERED: VANCOMYCIN HCL 0 MG in DEXTROSE 5%-WATER 250 ML IV NR (07:45)
[2016-09-30] MEDS ORDERED: (PENDING PHARMACY ID) (Clobetasol Propionate/Emoll [Clobetasol Emollient 0.05% Crm] 1 APPL TP PRN (07:47)
[2016-09-30] MEDS ORDERED: DEXTROSE 40% GEL 15 GM TUBE PO PRN ×3 (07:49→12:16)
[2016-09-30] MEDS ORDERED: DEXTROSE 50%-WATER 25 GM/50 ML DISP.SYRIN IV PRN ×2 (07:49)
[2016-09-30] MEDS ORDERED: GLUCAGON,HUMAN RECOMB 1 MG INJ IM PRN ×2 (07:49→12:16)
[2016-09-30] MEDS ORDERED: IPRATROPIUM/ALBUTEROL 0.5-2.5 MG/3 ML AMPUL NEB ONE (07:56)
--- NOTE | 2016-09-30 08:34 | PDOC H&P ---
History of Present Illness Admission Date/PCP: 09/30/16 05:23 MARY BETH NEELY MD Patient complains of: constipation & dyspnea History of Present Illness: YURI FOSTER JR is a 71 year old male who was discharged 6d ago for status asthmaticus. No stool 8d. Distention aggravated severe asthma. In the ER he had draining pyophlebitis L antecubital & leucocytosis. Past Medical History Cardiac Medical History: Reports: Atrial Fibrillation, Congestive Heart Failure - diastolic since 2016 echo., Myocardial Infarction - NSTEMI, Hyperlipidema, Hypertension Denies: Coronary Artery Disease Pulmonary Medical History: Reports: Asthma - severe persistant Denies: Bronchitis, Chronic Obstructive Pulmonary Disease (COPD), Pneumonia EENT Medical History: Reports: Nose - allergic rhinitis Neurological Medical History: Reports: Other - diabetic retinopathy Denies: Seizures Endocrine Medical History: Reports: Diabetes Mellitus Type 2, Other - IADH Renal/ Medical History: Reports: Other - wen Malignancy Medical History: Reports: Other - 2010 prostate GI Medical History: Reports: Gastroesophageal Reflux Disease - 1m esophageal ulcer. DrL ablated gastric & duodenal avm. 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 Past Surgical History Past Surgical History: Reports: Other - L cataract Social History Information Source: Office Lives with: Family Smoking Status: Never Smoker Frequency of Alcohol Use: None Hx Recreational Drug Use: Yes Drugs: Cocaine - 30y ago, Marijuana - 30y ago Hx Prescription Drug Abuse: No Family History Family History: DM, Other - asthma brother Parental Family History Reviewed: Yes Children Family History Reviewed: Yes Sibling(s) Family History Reviewed.: Yes Medication/Allergy Home Medications: Albuterol Sulfate [Proair Respiclick] 2 inh IH Q4HP PRN 09/17/16 Alfuzosin HCl [Alfuzosin HCl ER] 10 mg PO DAILY 09/17/16 Aspirin [Aspirin 81 mg Chewable Tablet] 81 mg PO DAILY 09/17/16 Budesonide [Pulmicort Neb 1 mg/2 mL Ampule] 1 mg IH Q12 09/17/16 Budesonide/Formoterol Fumarate [Symbicort HFA 160-4.5 mcg Inhaler 6 gm] 2 puff IH Q12 09/17/16 Cetirizine HCl [Zyrtec 10 mg Tablet] 10 mg PO QHS 09/17/16 Clobetasol Propionate/Emoll [Clobetasol Emollient 0.05% Crm] 1 applic TP BIDP PRN 09/17/16 Diltiazem HCl [Diltiazem 24Hr Cd] 240 mg PO DAILY 09/17/16 Epinephrine [Epipen] 0.3 mg INJ DAILYP PRN 09/17/16 Hydralazine HCl [Apresoline 25 mg Tablet] 25 mg PO Q12 09/17/16 Ipratropium/Albuterol Sulfate [Duoneb 3 ml Ampul] 3 ml NEB RTQ4HP PRN 09/17/16 Magnesium Oxide [Mag-Ox 400 mg Tablet] 400 mg PO BID 09/17/16 Montelukast Sodium [Singulair 10 mg Tablet] 10 mg PO QHS 09/17/16 Omalizumab [Xolair Inj 150 mg Vial] 150 mg SUBCUT [id number] 09/17/16 Omeprazole 40 mg PO DAILY 09/17/16 Pimecrolimus [Elidel] 1 applic TP BID 09/17/16 Prednisone 25 mg PO DAILY 09/17/16 Tiotropium [place] [Spiriva Respimat] 2 puff IH DAILY 09/17/16 Atorvastatin Calcium [Lipitor 10 mg Tablet] 10 mg PO QHS 09/18/16 Clonidine HCl [Catapres] 0.1 mg PO Q12 09/18/16 Hum Insulin NPH/Reg Insulin Hm [Novolin 70-30 100 Unit/ml Vial] 20 unit SQ BID 09/18/16 Fluticasone Propionate [Flonase Nasal [place] 50 Mcg/[place] 16 gm] 2 spray NASL DAILY #1 spray.pump 09/24/16 Allergies/Adverse Reactions: No Known Allergies Allergy (Verified 09/12/16 08:09) Review of Systems Constitutional: PRESENT: chills, fever(s). ABSENT: headache(s), weight loss Nose, Mouth, and Throat: ABSENT: sore throat Cardiovascular: PRESENT: dyspnea on exertion. ABSENT: chest pain, orthropnea Respiratory: PRESENT: cough Gastrointestinal: PRESENT: constipation. ABSENT: abdominal pain, diarrhea, hematochezia, melena, vomiting Genitourinary: ABSENT: dysuria, hematuria Integumentary: PRESENT: wounds - L antecubital draining induration 3cm Physical Exam Vital Signs: Temp Pulse Resp BP Pulse Ox 99.1 F 132 H 24 H 164/89 H 99 09/30/16 03:29 09/30/16 01:43 09/30/16 07:01 09/30/16 07:01 09/30/16 07:01 General appearance: PRESENT: mild distress Mouth exam: PRESENT: dry mucosa Neck exam: ABSENT: lymphadenopathy, tenderness, thyromegaly, tracheal deviation Respiratory exam: PRESENT: clear to auscultation ronni Cardiovascular exam: PRESENT: irregular rhythm. ABSENT: diastolic murmur, systolic murmur GI/Abdominal exam: PRESENT: distended. ABSENT: mass, organolmegaly, tenderness Extremities exam: ABSENT: pedal edema Neurological exam: PRESENT: oriented to situation Psychiatric exam: PRESENT: appropriate affect Results Impressions: Acute Abdomen Series 09/30/16 01:58 IMPRESSION: Constipation. No findings to suggest obstruction. Assessment & Plan - Diagnosis (1) Acute renal injury due to sepsis Is this a current diagnosis for this admission?: YesPlan: suspect mrsa bacteremia from pyophlebitis. Continue vanc & zosyn. (2) Hyponatremia Is this a current diagnosis for this admission?: YesPlan: fluid restriction 1000. ?tolvaptan (3) Constipation Qualifiers: Constipation type: slow transit constipation Qualified Code(s): K59.01 - Slow transit constipation Is this a current diagnosis for this admission?: YesPlan: enemas, amitiza, lactulose (4) LFT elevation Is this a current diagnosis for this admission?: YesPlan: USgb for direct bilirubin
--- NOTE | 2016-09-30 09:13 | EKG REPORT ---
SEVERITY:- ABNORMAL ECG - SINUS TACHYCARDIA AND PACS LAD, CONSIDER LEFT ANTERIOR FASCICULAR BLOCK PROBABLE POSTERIOR INFARCT ABNORMAL T, CONSIDER ISCHEMIA, LATERAL LEADS : Confirmed by: Karan Lenz MD 30-Sep-2016 09:12:00
[2016-09-30 09:29] LABS: FOLATE 7.19 ng/mL (>2.76)
[2016-09-30] MEDS ORDERED: FLUTICASONE NASAL SPRAY 50 MCG/SPRY 120 SPRAY/16 GM NASL SCH (10:00)
[2016-09-30] MEDS ORDERED: PREDNISONE 25 MG PO SCH (10:00)
[2016-09-30] MEDS ORDERED: LACTULOSE SYRUP 20 GM/30 ML UDCUP PO SCH (10:00)
[2016-09-30] MEDS ORDERED: BUDESONIDE 1 MG IH SCH (10:00)
[2016-09-30] MEDS ORDERED: (PENDING PHARMACY ID) (Tiotropium Bromide [Spiriva Respimat] 2 PUFF) IH SCH (10:00)
[2016-09-30] MEDS ORDERED: (PENDING PHARMACY ID) (Diltiazem Hcl [Diltiazem 24hr Cd] 240 MG) PO SCH (10:00)
[2016-09-30] MEDS ORDERED: (PENDING PHARMACY ID) (Alfuzosin Hcl [Alfuzosin Hcl Er] 10 MG) PO SCH (10:00)
[2016-09-30] MEDS ORDERED: VANCOMYCIN HCL 1,500 MG in DEXTROSE 5%-WATER 250 ML IV ONE (11:00)
[2016-09-30] MEDS: IPRATROPIUM/ALBUTEROL 0.5-2.5 MG/3 ML AMPUL NEB SCH ×3 (11:50→20:11)
[2016-09-30] MEDS: CLONIDINE HCL 0.1 MG TABLET PO SCH ×2 (12:02→21:41)
[2016-09-30] MEDS: ASPIRIN 81 MG TABLET, CHEWABLE PO SCH (12:02)
[2016-09-30] MEDS: PIPERACILLIN SODIUM/TAZOBACTAM 3.375 GM in NORMAL SALINE 100 ML IV SCH ×2 (12:04→17:45)
[2016-09-30] MEDS: ENOXAPARIN SODIUM INJ 30 MG/0.3 ML DISP.SYRIN SUBCUT SCH (12:09)
[2016-09-30] MEDS: HUM INSULIN NPH/REG INSULIN HM 100 UNIT/1 ML 3 ML SUBCUT SCH ×2 (12:11→15:48)
[2016-09-30] MEDS ORDERED: DEXTROSE 50%-WATER SYRINGE 12.5 GM/25 ML DOSE IV PRN (12:16)
[2016-09-30] MEDS ORDERED: DEXTROSE 50%-WATER SYRINGE 25 GM/50 ML DOSE IV PRN (12:16)
[2016-09-30] MEDS ORDERED: DEXTROSE 40% GEL 15 GM TUBE X 2 PO PRN (12:16)
[2016-09-30] MEDS ORDERED: INSULIN LISPRO 100 UNIT/ML 3 ML VIAL SUBCUT ONE (12:45)
[2016-09-30] MEDS: BUDESONIDE/FORMOTEROL 160-4.5 MCG 60 PUFF/6 GM MDI IH SCH ×2 (12:52→21:42)
[2016-09-30] MEDS: LUBIPROSTONE 24 MCG CAPSULE PO SCH ×2 (12:54→17:45)
[2016-09-30] MEDS ORDERED: CLOBETASOL PROPIONATE 0.05% CREAM 15 GM TP PRN (13:00)
[2016-09-30] MEDS ORDERED: ACETAMINOPHEN 325 MG TABLET PO PRN (13:35)
[2016-09-30] MEDS ORDERED: DILTIAZEM HCL 240 MG CAPSULE.CR PO ONE (14:15)
[2016-09-30] MEDS ORDERED: DIGOXIN INJ 0.5 MG/2 ML AMPULE IV ONE (15:30)
[2016-09-30] MEDS: INSULIN LISPRO 100 UNIT/ML 3 ML VIAL SUBCUT PRN ×2 (15:49→22:31)
[2016-09-30] MEDS: MONTELUKAST SODIUM 10 MG TABLET PO SCH (21:42)
[2016-09-30] MEDS ORDERED: ATORVASTATIN CALCIUM 10 MG TABLET PO SCH (22:00)
[2016-09-30] MEDS ORDERED: CETIRIZINE 10 MG TABLET PO SCH (22:00)
[2016-09-30] MEDS: NORMAL SALINE 1000 ML 1,000 ML IV PRN (22:30)
[2016-10-01] MEDS: IPRATROPIUM/ALBUTEROL 0.5-2.5 MG/3 ML AMPUL NEB SCH ×2 (00:15→04:20)
[2016-10-01] MEDS: PIPERACILLIN SODIUM/TAZOBACTAM 3.375 GM in NORMAL SALINE 100 ML IV SCH (00:38)
[2016-10-01] MEDS ORDERED: NITROGLYCERIN 0.4 MG/TAB 25 TAB/BOTTLE ONE (05:31)
[2016-10-01 05:35] LABS: HEMOGLOBIN 9.5 g/dL (13.5-17.0); HGB HCT DIFFERENCE 0.5; MEAN CORPUSCULAR HEMOGLOBIN 28.3 pg (27.0-33.4); MEAN CORPUSCULAR HGB CONC 33.8 g/dL (32.0-36.0); MEAN CORPUSCULAR VOLUME 84 fl (80-97); RED BLOOD COUNT 3.35 10^6/uL (4.35-5.55); RED CELL DISTRIBUTION WIDTH 16.7 % (11.5-14.0); WHITE BLOOD COUNT 22.3 10^3/uL (4.0-10.5)
[2016-10-01 05:50] LABS: ARTERIAL BLOOD BASE EXCESS -2.2 mmol/L
[2016-10-01] MEDS ORDERED: NITROGLYCERIN 0.4 MG/TAB 25 TAB/BOTTLE SL PRN (05:56)
[2016-10-01 05:58] LABS: ALANINE AMINOTRANSFERASE 65 U/L (21-72); ALBUMIN 2.8 g/dL (3.5-5.0); ALKALINE PHOSPHATASE 104 U/L (38-126); ANION GAP 13 (5-19); ASPARTATE AMINO TRANSFERASE 48 U/L (17-59); BILIRUBIN,DIRECT 0.7 mg/dL (0.0-0.4); BILIRUBIN,TOTAL 1.1 mg/dL (0.2-1.3); BLOOD UREA NITROGEN 31 mg/dL (7-20); CALCIUM 9.9 mg/dL (8.4-10.2); CARBON DIOXIDE 21 mmol/L (22-30); CHLORIDE 93 mmol/L (98-107); CREATININE RESULT 1.26 mg/dL (0.52-1.25); GLUCOSE 227 mg/dL (75-110); POTASSIUM 4.3 mmol/L (3.6-5.0); SODIUM 126.8 mmol/L (137-145); TOTAL PROTEIN 5.7 g/dL (6.3-8.2)
[2016-10-01] MEDS ORDERED: METHYLPREDNISOLONE INJ 125 MG/2 ML SDV IV ONE (06:00)
[2016-10-01] MEDS ORDERED: IPRATROPIUM/ALBUTEROL 0.5-2.5 MG/3 ML AMPUL NEB ONE (06:00)
[2016-10-01] MEDS ORDERED: METHYLPREDNISOLONE INJ 125 MG/2 ML SDV ONE (06:02)
[2016-10-01 06:12] LABS: BAND NEUTROPHILS % (MANUAL) 4 % (3-5); BASOPHILS % (MANUAL) 0 % (0-2); EOSINOPHILS % (MANUAL) 0 % (0-6); LYMPHOCYTES % (MANUAL) 1 % (13-45); TOTAL CELLS COUNTED 100
[2016-10-01 06:13] LABS: ANISOCYTOSIS 1+; BURR CELLS SLIGHT; OVALOCYTES SLIGHT; POIKILOCYTOSIS 1+; TOXIC GRANULATION SLIGHT
[2016-10-01] MEDS ORDERED: PROPOFOL 100 ML IV ONE ×2 (06:26→07:43)
[2016-10-01 06:29] LABS: CREATINE KINASE MB 5.95 ng/mL (<4.55); TROPONIN I 0.04 ng/mL
--- NOTE | 2016-10-01 06:32 | Progress Note ---
Provider Note Provider Note: 10/01/2016: Rapid response was called at 5:32 AM this morning. I went to the patient's bedside with multiple staff members present, including respiratory therapy, floor nurses, and hospital supervising nurse, along with intensive care unit nurse solitario. Obese -[place] male, in respiratory distress, making mild use of accessory respiratory muscles. Confused. Complaining of mild chest discomfort. Diffuse mild expiratory wheezing on auscultation of chest, with "tight" breath sounds. Floor staff contacted his primary care provider Dr. Mendez who ordered sublingual nitroglycerin, along with basic labs, including EKG. Accu-Chek in the 300+ range. Given his overall clinical picture, decision was made to transport the patient to the intensive care unit, which was accomplished without undue difficulty. Patient was placed on BiPAP. DuoNeb was ordered, along with 125 mg of IV Solu- Medrol. Initial concern for need for possible intubation of patient. However, he did open his eyes when name called. Although he remained in respiratory distress and seemed quite anxious, did interact reasonably appropriately. 100% saturation on BiPAP of 50%. Maintaining airway well. Intubation was therefore postponed. Dr. Mendez arrived in the intensive care unit shortly after 6 AM, and care was turned over to him. 30 minutes critical care time spent in evaluation and management of patient, including patient evaluation, chart review, entering of multiple orders into the electronic health record, multiple discussions with nursing staff, and in person discussion with Dr. Mendez.
--- NOTE | 2016-10-01 06:42 | PDOC PROGRESS REPORT ---
Subjective Progress Note for:: 10/01/16 Subjective:: 30min:chest pain. Ntg. Ekg stable. Labored breathing. Tachypnea. ABG ok on bipap but more distress. Intubated. Physical Exam Vital Signs: Temp Pulse Resp BP Pulse Ox 98.2 F 112 H 22 H 141/91 H 99 10/01/16 03:53 10/01/16 04:20 10/01/16 04:20 10/01/16 03:53 10/01/16 03:53 Intake & Output 09/29/16 09/30/16 10/01/16 07:59 07:59 07:59 Intake Total 1220 Output Total 850 Balance 370 General appearance: PRESENT: severe distress Respiratory exam: PRESENT: prolonged expiratory phas, tachypnea, wheezes. ABSENT: rales Cardiovascular exam: PRESENT: irregular rhythm. ABSENT: diastolic murmur, systolic murmur GI/Abdominal exam: PRESENT: distended. ABSENT: mass, organolmegaly, tenderness Extremities exam: PRESENT: pedal edema - 1+ Neurological exam: PRESENT: altered - barely responsive Results Laboratory Results: 10/01/16 04:30 10/01/16 10/01/16 10/01/16 04:30 04:30 05:38 Seg Neutrophils % Not Reportable Lymphocytes % Not Reportable Monocytes % Not Reportable Eosinophils % Not Reportable Basophils % Not Reportable Absolute Neutrophils Not Reportable Absolute Lymphocytes Not Reportable Absolute Monocytes Not Reportable Absolute Eosinophils Not Reportable Absolute Basophils Not Reportable Carbonic Acid 1.08 HCO3/H2CO3 Ratio 20:1 ABG pH 7.41 ABG pCO2 36.0 ABG pO2 107.4 H ABG HCO3 22.1 ABG O2 Saturation 98.0 ABG Base Excess -2.2 FiO2 40% Sodium 126.8 L Potassium 4.3 Chloride 93 L Carbon Dioxide 21 L Anion Gap 13 BUN 31 H Creatinine 1.26 H Est GFR ( Amer) > 60 Est GFR (Non-Af Amer) 57 L Glucose 227 H Calcium 9.9 Total Bilirubin 1.1 AST 48 ALT 65 Alkaline Phosphatase 104 Total Protein 5.7 L Albumin 2.8 L EKG Comments: no ST changes Impressions: Abdomen Ultrasound 09/30/16 00:00 IMPRESSION: SEVERELY LIMITED ABDOMINAL ULTRASOUND. HEPATIC STEATOSIS. NO ADDITIONAL SIGNIFICANT ABNORMALITY NOTED. Acute Abdomen Series 09/30/16 01:58 IMPRESSION: Constipation. No findings to suggest obstruction. Assessment & Plan - Diagnosis (1) Acute and chronic respiratory failure Qualifiers: Respiratory failure complication: unspecified whether with hypoxia or hypercapnia Qualified Code(s): J96.20 - Acute and chronic respiratory failure, unspecified whether with hypoxia or hypercapnia Is this a current diagnosis for this admission?: YesPlan: intubation. Reconsult Dr Aguilar. (2) Acute renal injury due to sepsis Is this a current diagnosis for this admission?: YesPlan: gram+ in 2 blood cultures. Suspect ARDS and stupor from sepsis too (3) Hyponatremia Is this a current diagnosis for this admission?: YesPlan: 127 improving (4) Constipation Qualifiers: Constipation type: slow transit constipation Qualified Code(s): K59.01 - Slow transit constipation Is this a current diagnosis for this admission?: YesPlan: 2 enemas had some results (5) LFT elevation Is this a current diagnosis for this admission?: YesPlan: could not see ducts on US. Probably sepsis (6) Precordial chest pain Is this a current diagnosis for this admission?: YesPlan: MB6. Troponin 0.04
[2016-10-01] MEDS: LANSOPRAZOLE 30 MG TAB.RAP.DR PO SCH (07:55)
[2016-10-01] MEDS: HUM INSULIN NPH/REG INSULIN HM 100 UNIT/1 ML 3 ML SUBCUT SCH ×2 (07:55→17:40)
--- NOTE | 2016-10-01 08:26 | PDOC CONSULTATION ---
Consultation Consult Date: 10/01/16 Attending physician:: MARY BETH NEELY Consult reason:: resp failure acut/chronic/pna History of Present Illness Admission Date/PCP: 09/30/16 07:30 MARY BETH NEELY MD History of Present Illness: YURI FOTSER JR is a 71 year old male who was discharged 6d ago for status asthmaticus. No stool 8d. Distention aggravated severe asthma. In the ER he had draining pyophlebitis L antecubital & leucocytosis.Currently intubated ;cxr RLL opacity and moderate pleural effusion Past Medical History Cardiac Medical History: Reports: Atrial Fibrillation, Congestive Heart Failure - diastolic since 2016 echo., Myocardial Infarction - NSTEMI, Hyperlipidema, Hypertension Denies: Coronary Artery Disease Pulmonary Medical History: Reports: Asthma - severe persistant Denies: Bronchitis, Chronic Obstructive Pulmonary Disease (COPD), Pneumonia EENT Medical History: Reports: Nose - allergic rhinitis Neurological Medical History: Reports: Other - diabetic retinopathy Denies: Seizures Endocrine Medical History: Reports: Diabetes Mellitus Type 2, Other - IADH Renal/ Medical History: Reports: Other - wen Malignancy Medical History: Reports: Other - 2010 prostate GI Medical History: Reports: Gastroesophageal Reflux Disease - 1m esophageal ulcer. DrL ablated gastric & duodenal avm. 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 Past Surgical History Past Surgical History: Reports: Other - L cataract Social History Lives with: Family Smoking Status: Never Smoker Frequency of Alcohol Use: None Hx Recreational Drug Use: Yes Drugs: Cocaine, Marijuana Hx Prescription Drug Abuse: No Family History Family History: DM, Other - asthma brother Parental Family History Reviewed: No Children Family History Reviewed: No Sibling(s) Family History Reviewed.: No Medication/Allergy Home Medications: Albuterol Sulfate [Proair HFA] 2 puff IH Q4HP PRN 09/30/16 Budesonide [Pulmicort Neb 1 mg/2 mL Ampule] 2 ml NEB Q12 09/30/16 Clobetasol Propionate [Temovate 0.05% Cream 15 gm] 1 applic TOP BID 09/30/16 Diltiazem HCl [Cardizem Cd 240 mg Capsule.cr] 240 mg PO DAILY 09/30/16 Fluticasone Propionate [Flonase Nasal [place] 50 Mcg/[place] 16 gm] 2 spray NASL DAILY 09/30/16 Furosemide [Lasix] 40 mg PO BID 09/30/16 Ipratropium/Albuterol Sulfate [Duoneb 3 ml Ampul] 3 ml NEB RTQID 09/30/16 Magnesium Oxide [Mag-Ox 400 mg Tablet] 400 mg PO BID 09/30/16 Omeprazole 40 mg PO [id number] 09/30/16 Prednisone [Deltasone 20 mg Tablet] 20 mg PO DAILY 09/30/16 Prednisone [Deltasone 5 mg Tablet] 15 mg PO Q2D 09/30/16 Spironolactone [Aldactone 25 mg Tablet] 25 mg PO DAILY 09/30/16 Tiotropium [place] [Spiriva Respimat] 2 puff IH DAILY 09/30/16 Allergies/Adverse Reactions: No Known Allergies Allergy (Verified 09/12/16 08:09) Review of Systems ROS unobtainable: Due to endotracheal tube Physical Exam Vital Signs: Temp Pulse Resp BP Pulse Ox 98.4 F 104 H 24 H 137/80 H 100 10/01/16 08:00 10/01/16 08:00 10/01/16 08:00 10/01/16 08:00 10/01/16 08:00 Intake & Output 09/30/16 10/01/16 10/02/16 06:59 06:59 06:59 Intake Total 1220 Output Total 850 255 Balance 370 -255 General appearance: PRESENT: no acute distress, disheveled, obese Head exam: PRESENT: atraumatic, normocephalic Eye exam: PRESENT: conjunctiva pale, EOMI Mouth exam: PRESENT: dry mucosa, neck supple, other - ET tube Neck exam: PRESENT: carotid bruit Respiratory exam: PRESENT: decreased breath sounds, prolonged expiratory phas, rhonchi, symmetrical, unlabored, wheezes Cardiovascular exam: PRESENT: RRR, +S1, +S2 Pulses: PRESENT: normal radial pulses GI/Abdominal exam: PRESENT: other - distended typanic no bs appreciated Rectal exam: PRESENT: deferred Gentrourinary exam: PRESENT: indwelling catheter Musculoskeletal exam: PRESENT: normal inspection Skin exam: PRESENT: dry, warm Results Laboratory Results: 10/01/16 04:30 10/01/16 04:30 10/01/16 10/01/16 10/01/16 04:30 04:30 05:38 WBC 22.3 H RBC 3.35 L Hgb 9.5 L Hct 28.0 L MCV 84 MCH 28.3 MCHC 33.8 RDW 16.7 H Plt Count 193 Seg Neutrophils % Not Reportable Lymphocytes % Not Reportable Monocytes % Not Reportable Eosinophils % Not Reportable Basophils % Not Reportable Absolute Neutrophils Not Reportable Absolute Lymphocytes Not Reportable Absolute Monocytes Not Reportable Absolute Eosinophils Not Reportable Absolute Basophils Not Reportable Carbonic Acid 1.08 HCO3/H2CO3 Ratio 20:1 ABG pH 7.41 ABG pCO2 36.0 ABG pO2 107.4 H ABG HCO3 22.1 ABG O2 Saturation 98.0 ABG Base Excess -2.2 FiO2 40% Sodium 126.8 L Potassium 4.3 Chloride 93 L Carbon Dioxide 21 L Anion Gap 13 BUN 31 H Creatinine 1.26 H Est GFR ( Amer) > 60 Est GFR (Non-Af Amer) 57 L Glucose 227 H Calcium 9.9 Total Bilirubin 1.1 AST 48 ALT 65 Alkaline Phosphatase 104 Total Protein 5.7 L Albumin 2.8 L 10/01/16 10/01/16 05:50 05:50 Creatine Kinase 262 H CK-MB (CK-2) 5.95 H Troponin I 0.040 Impressions: Abdomen Ultrasound 09/30/16 00:00 IMPRESSION: SEVERELY LIMITED ABDOMINAL ULTRASOUND. HEPATIC STEATOSIS. NO ADDITIONAL SIGNIFICANT ABNORMALITY NOTED. Acute Abdomen Series 09/30/16 01:58 IMPRESSION: Constipation. No findings to suggest obstruction. Chest X-Ray 10/01/16 00:00 IMPRESSION: Interval worsening includes a moderate right basilar opacity - effusion and mild central edema pattern with mild cardiac enlargement. Differential diagnosis includes CHF and pneumonia. Lines and tubes. Assessment & Plan - Diagnosis (1) Pneumonia Qualifiers: Aspiration pneumonia type: unspecified Laterality: right Lung location: lower lobe of lung Is this a current diagnosis for this admission?: YesPlan: add rocephin to vancomycin (2) Acute and chronic respiratory failure (styib-ti-cxoocxi) Is this a current diagnosis for this admission?: YesPlan: duoneb mechanical ventilation (3) Status asthmaticus Qualifiers: Asthma severity: severe persistent Qualified Code(s): J45.52 - Severe persistent asthma with status asthmaticus Is this a current diagnosis for this admission?: YesPlan: add pumicort (4) Body mass index (BMI) of 40.0-44.9 in adult Is this a current diagnosis for this admission?: Yes - Time Critical Time spent with patient: 35 or more minutes
[2016-10-01 08:29] LABS: ARTERIAL BLOOD BASE EXCESS -5.2 mmol/L; ARTERIAL BLOOD O2 SATURATION 98.6 % (94-98)
[2016-10-01] MEDS: MIDAZOLAM 2 MG/2 ML INJ IV PRN ×3 (08:34→18:48)
--- NOTE | 2016-10-01 08:34 | EKG REPORT ---
SEVERITY:- BORDERLINE ECG - SINUS TACHYCARDIA BORDERLINE LEFT AXIS DEVIATION : Confirmed by: Dionne Briceno 01-Oct-2016 08:34:01
[2016-10-01] MEDS: PROPOFOL 100 ML IV PRN ×6 (08:35→22:54)
[2016-10-01] MEDS: NORMAL SALINE 1000 ML 1,000 ML IV PRN (08:36)
[2016-10-01] MEDS ORDERED: BUDESONIDE NEB 0.5 MG/2 ML AMPUL NEB ONE (09:30)
[2016-10-01] MEDS ORDERED: TAMSULOSIN HCL 0.4 MG CAP.SR.24H PO SCH (10:00)
[2016-10-01] MEDS ORDERED: DIGOXIN 0.125 MG TABLET PO SCH (10:00)
[2016-10-01] MEDS ORDERED: TIOTROPIUM BROMIDE DPI 5 CAP/KIT (18 MCG/CAP) IH SCH (10:00)
[2016-10-01] MEDS ORDERED: DILTIAZEM HCL 240 MG CAPSULE.CR PO SCH (10:00)
[2016-10-01] MEDS: PREDNISONE 20 MG TABLET PO SCH (10:10)
[2016-10-01] MEDS: ASPIRIN 81 MG TABLET, CHEWABLE PO SCH (10:11)
[2016-10-01] MEDS: CEFTAZIDIME PENTAHYDRATE 2 GM in DEXTROSE 5%-WATER 100 ML IV SCH ×2 (10:11→17:39)
[2016-10-01] MEDS: ENOXAPARIN SODIUM INJ 30 MG/0.3 ML DISP.SYRIN SUBCUT SCH (10:11)
[2016-10-01] MEDS: LUBIPROSTONE 24 MCG CAPSULE PO SCH ×2 (10:15→17:41)
[2016-10-01] MEDS: PREDNISONE 5 MG TABLET PO SCH (10:15)
[2016-10-01] MEDS ORDERED: SUCCINYLCHOLINE CHLORIDE INJ 200 MG/10 ML VIAL ONE (11:22)
[2016-10-01] MEDS: INSULIN LISPRO 100 UNIT/ML 3 ML VIAL SUBCUT PRN ×2 (11:53→23:02)
[2016-10-01] MEDS ORDERED: VANCOMYCIN HCL 1,500 MG in DEXTROSE 5%-WATER 250 ML IV SCH (12:00)
[2016-10-01] MEDS ORDERED: DILTIAZEM HCL/D5W 125 MG/125 ML RTUINJ IV ONE (18:55)
[2016-10-01] MEDS ORDERED: DILTIAZEM HCL INJ 25 MG/5 ML VIAL ONE ×2 (18:55→19:59)
[2016-10-01] MEDS ORDERED: DILTIAZEM HCL/D5W 125 MG/125 ML RTUINJ IV PRN (18:57)
[2016-10-01] MEDS ORDERED: DIGOXIN INJ 0.5 MG/2 ML AMPULE ONE (19:13)
[2016-10-01] MEDS ORDERED: DIGOXIN INJ 0.5 MG/2 ML AMPULE IV ONE (19:45)
[2016-10-01] MEDS: BUDESONIDE NEB 0.5 MG/2 ML AMPUL NEB SCH (20:00)
[2016-10-01] MEDS ORDERED: PROPRANOLOL HCL 10 MG TABLET NG ONE (20:45)
[2016-10-01] MEDS ORDERED: DILTIAZEM HCL INJ 25 MG/5 ML VIAL IV ONE (20:45)
[2016-10-01] MEDS ORDERED: AMIODARONE HCL INJ 150 MG/3 ML VIAL IV ONE (21:02)
[2016-10-01] MEDS ORDERED: DEXTROSE 5%-WATER 500 ML with AMIODARONE HCL 900 MG IV PRN ×2 (21:13)
--- NOTE | 2016-10-01 21:35 | EKG REPORT ---
SEVERITY:- ABNORMAL ECG - ATRIAL FIBRILLATION BORDERLINE LEFT AXIS DEVIATION LOW VOLTAGE IN FRONTAL LEADS NONSPECIFIC T ABNORMALITIES, LATERAL LEADS : Confirmed by: Dionne Briceno 01-Oct-2016 21:34:49
[2016-10-01] MEDS: MONTELUKAST SODIUM 10 MG TABLET PO SCH (21:52)
[2016-10-01 22:53] LABS: ANION GAP 12 (5-19); BLOOD UREA NITROGEN 26 mg/dL (7-20); CALCIUM 9.6 mg/dL (8.4-10.2); CARBON DIOXIDE 24 mmol/L (22-30); CHLORIDE 98 mmol/L (98-107); CREATININE RESULT 0.98 mg/dL (0.52-1.25); GLUCOSE 316 mg/dL (75-110); POTASSIUM 4.1 mmol/L (3.6-5.0); SODIUM 133.5 mmol/L (137-145)
[2016-10-02] MEDS: DIGOXIN INJ 0.5 MG/2 ML AMPULE IV SCH ×2 (00:31→06:10)
[2016-10-02] MEDS: PROPOFOL 100 ML IV PRN ×6 (01:38→20:26)
[2016-10-02] MEDS: CEFTAZIDIME PENTAHYDRATE 2 GM in DEXTROSE 5%-WATER 100 ML IV SCH ×3 (01:39→17:42)
[2016-10-02 04:35] LABS: HEMATOCRIT 26.2 % (37.9-51.0); HEMOGLOBIN 8.9 g/dL (13.5-17.0); HGB HCT DIFFERENCE 0.5; MEAN CORPUSCULAR HEMOGLOBIN 28.4 pg (27.0-33.4); MEAN CORPUSCULAR HGB CONC 33.8 g/dL (32.0-36.0); MEAN CORPUSCULAR VOLUME 84 fl (80-97); RED BLOOD COUNT 3.12 10^6/uL (4.35-5.55); WHITE BLOOD COUNT 16.3 10^3/uL (4.0-10.5)
[2016-10-02 04:37] LABS: ARTERIAL BLOOD BASE EXCESS 4.1 mmol/L; ARTERIAL BLOOD O2 SATURATION 96.9 % (94-98)
[2016-10-02 04:41] LABS: ALANINE AMINOTRANSFERASE 59 U/L (21-72); ALBUMIN 2.4 g/dL (3.5-5.0); ALKALINE PHOSPHATASE 83 U/L (38-126); ANION GAP 6 (5-19); ASPARTATE AMINO TRANSFERASE 26 U/L (17-59); BILIRUBIN,DIRECT 0.5 mg/dL (0.0-0.4); BILIRUBIN,TOTAL 0.6 mg/dL (0.2-1.3); BLOOD UREA NITROGEN 27 mg/dL (7-20); CALCIUM 9.4 mg/dL (8.4-10.2); CARBON DIOXIDE 27 mmol/L (22-30); CHLORIDE 100 mmol/L (98-107); CREATININE RESULT 0.98 mg/dL (0.52-1.25); GLUCOSE 266 mg/dL (75-110); MAGNESIUM 2.5 mg/dL (1.6-2.3); POTASSIUM 4.2 mmol/L (3.6-5.0); SODIUM 132.6 mmol/L (137-145); TOTAL PROTEIN 5.2 g/dL (6.3-8.2)
[2016-10-02 05:21] LABS: BAND NEUTROPHILS % (MANUAL) 4 % (3-5); BASOPHILS % (MANUAL) 0 % (0-2); EOSINOPHILS % (MANUAL) 0 % (0-6); LYMPHOCYTES % (MANUAL) 1 % (13-45); TOTAL CELLS COUNTED 100
[2016-10-02 05:24] LABS: BURR CELLS SLIGHT; HYPOCHROMASIA SLIGHT; OVALOCYTES SLIGHT; POIKILOCYTOSIS 1+; TOXIC GRANULATION SLIGHT; TOXIC VACUOLATION PRESENT
--- NOTE | 2016-10-02 06:58 | PDOC PROGRESS REPORT ---
Subjective Progress Note for:: 10/02/16 Subjective:: sedated Physical Exam Vital Signs: Temp Pulse Resp BP Pulse Ox 99.0 F 145 H 18 139/78 H 98 10/01/16 18:00 10/01/16 21:29 10/02/16 06:15 10/02/16 06:15 10/02/16 06:15 Intake & Output 09/30/16 10/01/16 10/02/16 07:59 07:59 07:59 Intake Total 1220 3770 Output Total 850 4505 Balance 370 -735 Weight 242 lb 4.608 oz Respiratory exam: PRESENT: clear to auscultation ronni Cardiovascular exam: PRESENT: irregular rhythm. ABSENT: diastolic murmur, systolic murmur GI/Abdominal exam: PRESENT: soft Extremities exam: ABSENT: pedal edema Results Laboratory Results: 10/02/16 04:09 10/02/16 04:09 10/01/16 10/01/16 10/01/16 08:10 21:15 21:15 WBC RBC Hgb Hct MCV MCH MCHC RDW Plt Count Seg Neutrophils % Lymphocytes % Monocytes % Eosinophils % Basophils % Absolute Neutrophils Absolute Lymphocytes Absolute Monocytes Absolute Eosinophils Absolute Basophils Carbonic Acid 1.21 HCO3/H2CO3 Ratio 16:1 ABG pH 7.32 L ABG pCO2 40.3 ABG pO2 141.9 H ABG HCO3 20.4 ABG O2 Saturation 98.6 H ABG Base Excess -5.2 FiO2 50% Sodium 133.5 L Potassium 4.1 Chloride 98 Carbon Dioxide 24 Anion Gap 12 BUN 26 H Creatinine 0.98 Est GFR ( Amer) > 60 Est GFR (Non-Af Amer) > 60 Glucose 316 H Calcium 9.6 Phosphorus Magnesium 2.5 H Total Bilirubin AST ALT Alkaline Phosphatase Total Protein Albumin 10/02/16 10/02/16 10/02/16 04:09 04:09 04:17 WBC 16.3 H RBC 3.12 L Hgb 8.9 L Hct 26.2 L MCV 84 MCH 28.4 MCHC 33.8 RDW 17.0 H Plt Count 192 Seg Neutrophils % Not Reportable Lymphocytes % Not Reportable Monocytes % Not Reportable Eosinophils % Not Reportable Basophils % Not Reportable Absolute Neutrophils Not Reportable Absolute Lymphocytes Not Reportable Absolute Monocytes Not Reportable Absolute Eosinophils Not Reportable Absolute Basophils Not Reportable Carbonic Acid 1.12 HCO3/H2CO3 Ratio 24:1 ABG pH 7.49 H ABG pCO2 37.2 ABG pO2 83.1 ABG HCO3 27.6 H ABG O2 Saturation 96.9 ABG Base Excess 4.1 FiO2 30% Sodium 132.6 L Potassium 4.2 Chloride 100 Carbon Dioxide 27 Anion Gap 6 BUN 27 H Creatinine 0.98 Est GFR ( Amer) > 60 Est GFR (Non-Af Amer) > 60 Glucose 266 H Calcium 9.4 Phosphorus 3.0 Magnesium 2.5 H Total Bilirubin 0.6 AST 26 ALT 59 Alkaline Phosphatase 83 Total Protein 5.2 L Albumin 2.4 L 10/01/16 10/01/16 10/01/16 05:50 05:50 21:15 Creatine Kinase 262 H CK-MB (CK-2) 5.95 H Troponin I 0.040 NT-Pro-B Natriuret Pep 814 Impressions: Abdomen Ultrasound 09/30/16 00:00 IMPRESSION: SEVERELY LIMITED ABDOMINAL ULTRASOUND. HEPATIC STEATOSIS. NO ADDITIONAL SIGNIFICANT ABNORMALITY NOTED. Acute Abdomen Series 09/30/16 01:58 IMPRESSION: Constipation. No findings to suggest obstruction. Assessment & Plan - Diagnosis (1) Acute and chronic respiratory failure Qualifiers: Respiratory failure complication: unspecified whether with hypoxia or hypercapnia Qualified Code(s): J96.20 - Acute and chronic respiratory failure, unspecified whether with hypoxia or hypercapnia Is this a current diagnosis for this admission?: YesPlan: RLL infiltrate ?effusion. Continue vanc & fortaz (2) Acute renal injury due to sepsis Is this a current diagnosis for this admission?: YesPlan: wound & blood growing gram+ clusters (3) Hyponatremia Is this a current diagnosis for this admission?: Yes (4) Constipation Qualifiers: Constipation type: slow transit constipation Qualified Code(s): K59.01 - Slow transit constipation Is this a current diagnosis for this admission?: Yes (5) LFT elevation Is this a current diagnosis for this admission?: Yes (6) Precordial chest pain Is this a current diagnosis for this admission?: Yes (7) Paroxysmal atrial fibrillation Is this a current diagnosis for this admission?: YesPlan: max diltiazem failed. Loaded dig. OK on amiodarone off diltiazem.
[2016-10-02] MEDS ORDERED: DILTIAZEM HCL INJ 25 MG/5 ML VIAL ONE (08:34)
[2016-10-02] MEDS: LANSOPRAZOLE 30 MG TAB.RAP.DR PO SCH (08:41)
[2016-10-02] MEDS: BUDESONIDE NEB 0.5 MG/2 ML AMPUL NEB SCH ×2 (08:41→19:27)
[2016-10-02] MEDS ORDERED: DILTIAZEM HCL INJ 25 MG/5 ML VIAL IV ONE (08:45)
[2016-10-02] MEDS: NORMAL SALINE 1000 ML 1,000 ML IV PRN (09:01)
[2016-10-02] MEDS: PREDNISONE 20 MG TABLET PO SCH (09:03)
[2016-10-02] MEDS: LUBIPROSTONE 24 MCG CAPSULE PO SCH ×2 (09:04→17:42)
[2016-10-02] MEDS: VANCOMYCIN HCL 1,250 MG in DEXTROSE 5%-WATER 250 ML IV SCH ×2 (09:04→22:03)
[2016-10-02] MEDS: ASPIRIN 81 MG TABLET, CHEWABLE PO SCH (09:04)
[2016-10-02] MEDS: PREDNISONE 5 MG TABLET PO SCH (09:05)
[2016-10-02] MEDS: ENOXAPARIN SODIUM INJ 30 MG/0.3 ML DISP.SYRIN SUBCUT SCH (09:16)
[2016-10-02] MEDS ORDERED: INSULIN GLARGINE,HUM.REC.ANLOG 300 UNIT/3 ML INSULN.PEN SUBCUT SCH (10:00)
[2016-10-02] MEDS ORDERED: INSULIN GLARGINE,HUM.REC.ANLOG 1,000 UNIT/10 ML UNIT SUBCUT SCH (10:00)
--- NOTE | 2016-10-02 13:15 | PDOC PROGRESS REPORT ---
Subjective Progress Note for:: 10/02/16 Subjective:: Intubated and sedated Physical Exam Vital Signs: Temp Pulse Resp BP Pulse Ox 99.0 F 145 H 18 139/78 H 98 10/01/16 18:00 10/01/16 21:29 10/02/16 06:15 10/02/16 06:15 10/02/16 06:15 Intake & Output 10/01/16 10/02/16 10/03/16 06:59 06:59 06:59 Intake Total 1220 3770 Output Total 850 4505 225 Balance 370 -735 -225 Weight 109.9 kg General appearance: PRESENT: no acute distress, disheveled, obese, well- developed Head exam: PRESENT: atraumatic, normocephalic Eye exam: PRESENT: conjunctiva pale Mouth exam: PRESENT: neck supple, other - ET tube Neck exam: ABSENT: carotid bruit, JVD, lymphadenopathy, thyromegaly Respiratory exam: PRESENT: decreased breath sounds, prolonged expiratory phas, rales, rhonchi, unlabored, wheezes Cardiovascular exam: PRESENT: RRR, +S1, +S2, other - Prolonged episode of atrial fibrillation that did not respond to Cardizem digoxin and then amiodarone was started the patient returned to sinus rhythm. Amiodarone has been discontinued the patient is being maintained on Cardizem plus digoxin Pulses: PRESENT: normal radial pulses GI/Abdominal exam: PRESENT: other - Distended and tympanic no bowel movements or flatus Rectal exam: PRESENT: deferred Gentrourinary exam: PRESENT: indwelling catheter Musculoskeletal exam: PRESENT: normal inspection Skin exam: PRESENT: dry, warm Results Laboratory Results: 10/02/16 04:09 10/02/16 04:09 10/01/16 10/01/16 10/01/16 08:10 21:15 21:15 WBC RBC Hgb Hct MCV MCH MCHC RDW Plt Count Seg Neutrophils % Lymphocytes % Monocytes % Eosinophils % Basophils % Absolute Neutrophils Absolute Lymphocytes Absolute Monocytes Absolute Eosinophils Absolute Basophils Carbonic Acid 1.21 HCO3/H2CO3 Ratio 16:1 ABG pH 7.32 L ABG pCO2 40.3 ABG pO2 141.9 H ABG HCO3 20.4 ABG O2 Saturation 98.6 H ABG Base Excess -5.2 FiO2 50% Sodium 133.5 L Potassium 4.1 Chloride 98 Carbon Dioxide 24 Anion Gap 12 BUN 26 H Creatinine 0.98 Est GFR ( Amer) > 60 Est GFR (Non-Af Amer) > 60 Glucose 316 H Calcium 9.6 Phosphorus Magnesium 2.5 H Total Bilirubin AST ALT Alkaline Phosphatase Total Protein Albumin 10/02/16 10/02/16 10/02/16 04:09 04:09 04:17 WBC 16.3 H RBC 3.12 L Hgb 8.9 L Hct 26.2 L MCV 84 MCH 28.4 MCHC 33.8 RDW 17.0 H Plt Count 192 Seg Neutrophils % Not Reportable Lymphocytes % Not Reportable Monocytes % Not Reportable Eosinophils % Not Reportable Basophils % Not Reportable Absolute Neutrophils Not Reportable Absolute Lymphocytes Not Reportable Absolute Monocytes Not Reportable Absolute Eosinophils Not Reportable Absolute Basophils Not Reportable Carbonic Acid 1.12 HCO3/H2CO3 Ratio 24:1 ABG pH 7.49 H ABG pCO2 37.2 ABG pO2 83.1 ABG HCO3 27.6 H ABG O2 Saturation 96.9 ABG Base Excess 4.1 FiO2 30% Sodium 132.6 L Potassium 4.2 Chloride 100 Carbon Dioxide 27 Anion Gap 6 BUN 27 H Creatinine 0.98 Est GFR ( Amer) > 60 Est GFR (Non-Af Amer) > 60 Glucose 266 H Calcium 9.4 Phosphorus 3.0 Magnesium 2.5 H Total Bilirubin 0.6 AST 26 ALT 59 Alkaline Phosphatase 83 Total Protein 5.2 L Albumin 2.4 L 09/30/16 15:18 Nasophary ([facility] Only) MRSA Surveillance Culture - Final NO MRSA RECOVERED 10/01/16 10/01/16 10/01/16 05:50 05:50 21:15 Creatine Kinase 262 H CK-MB (CK-2) 5.95 H Troponin I 0.040 NT-Pro-B Natriuret Pep 814 Impressions: Abdomen Ultrasound 09/30/16 00:00 IMPRESSION: SEVERELY LIMITED ABDOMINAL ULTRASOUND. HEPATIC STEATOSIS. NO ADDITIONAL SIGNIFICANT ABNORMALITY NOTED. Acute Abdomen Series 09/30/16 01:58 IMPRESSION: Constipation. No findings to suggest obstruction. Assessment & Plan - Diagnosis (1) Pneumonia Qualifiers: Aspiration pneumonia type: unspecified Laterality: right Lung location: lower lobe of lung Is this a current diagnosis for this admission?: YesPlan: GPC in blood cultures and wound culture (2) Acute and chronic respiratory failure ([id number]) Is this a current diagnosis for this admission?: YesPlan: Diffuse wheezes rales or rhonchi breath sounds have increased over the last 24 hours airway pressures are optimal (3) Status asthmaticus Qualifiers: Asthma severity: severe persistent Qualified Code(s): J45.52 - Severe persistent asthma with status asthmaticus Is this a current diagnosis for this admission?: YesPlan: Stable (4) Body mass index (BMI) of 40.0-44.9 in adult Is this a current diagnosis for this admission?: Yes - Time Critical Time spent with patient: 35 or more minutes
[2016-10-02] MEDS: INSULIN LISPRO 100 UNIT/ML 3 ML VIAL SUBCUT PRN ×2 (13:38→18:45)
[2016-10-02] MEDS ORDERED: MAGNESIUM CITRATE 296 ML BOTTLE NG ONE (14:15)
[2016-10-02] MEDS: DILTIAZEM HCL 30 MG TABLET NG SCH ×2 (14:34→22:02)
[2016-10-02] MEDS: MONTELUKAST SODIUM 10 MG TABLET PO SCH (22:03)
[2016-10-03] MEDS: NORMAL SALINE 1000 ML 1,000 ML IV PRN ×2 (00:47→08:40)
[2016-10-03] MEDS: PROPOFOL 100 ML IV PRN ×3 (00:47→05:41)
[2016-10-03] MEDS: CEFTAZIDIME PENTAHYDRATE 2 GM in DEXTROSE 5%-WATER 100 ML IV SCH ×2 (02:05→10:23)
[2016-10-03] MEDS: DILTIAZEM HCL 30 MG TABLET NG SCH ×3 (02:06→16:42)
[2016-10-03 04:42] LABS: ARTERIAL BLOOD BASE EXCESS 6.6 mmol/L; ARTERIAL BLOOD O2 SATURATION 98.7 % (94-98)
[2016-10-03 04:45] LABS: HEMATOCRIT 26.6 % (37.9-51.0); HGB HCT DIFFERENCE 0.4; MEAN CORPUSCULAR HEMOGLOBIN 28.1 pg (27.0-33.4); MEAN CORPUSCULAR HGB CONC 33.8 g/dL (32.0-36.0); MEAN CORPUSCULAR VOLUME 83 fl (80-97); RED BLOOD COUNT 3.21 10^6/uL (4.35-5.55); RED CELL DISTRIBUTION WIDTH 16.7 % (11.5-14.0); WHITE BLOOD COUNT 11.2 10^3/uL (4.0-10.5)
[2016-10-03 05:09] LABS: ALANINE AMINOTRANSFERASE 58 U/L (21-72); ALBUMIN 2.2 g/dL (3.5-5.0); ALKALINE PHOSPHATASE 77 U/L (38-126); ANION GAP 7 (5-19); ASPARTATE AMINO TRANSFERASE 24 U/L (17-59); BILIRUBIN,DIRECT 0.4 mg/dL (0.0-0.4); BILIRUBIN,TOTAL 0.4 mg/dL (0.2-1.3); BLOOD UREA NITROGEN 31 mg/dL (7-20); CALCIUM 9.2 mg/dL (8.4-10.2); CARBON DIOXIDE 27 mmol/L (22-30); CHLORIDE 103 mmol/L (98-107); CREATININE RESULT 0.88 mg/dL (0.52-1.25); GLUCOSE 274 mg/dL (75-110); POTASSIUM 4.2 mmol/L (3.6-5.0); TOTAL PROTEIN 4.7 g/dL (6.3-8.2)
[2016-10-03 05:13] LABS: BAND NEUTROPHILS % (MANUAL) 3 % (3-5); BASOPHILS % (MANUAL) 0 % (0-2); EOSINOPHILS % (MANUAL) 0 % (0-6); LYMPHOCYTES % (MANUAL) 6 % (13-45); TOTAL CELLS COUNTED 100
[2016-10-03 05:15] LABS: ANISOCYTOSIS 1+; POIKILOCYTOSIS 1+; POLYCHROMASIA SLIGHT; ROULEAUX 1+; TOXIC GRANULATION SLIGHT
[2016-10-03] MEDS: INSULIN LISPRO 100 UNIT/ML 3 ML VIAL SUBCUT PRN ×2 (05:55→18:16)
[2016-10-03] MEDS ORDERED: INSULIN GLARGINE,HUM.REC.ANLOG 1,000 UNIT/10 ML UNIT SUBCUT ONE (06:00)
[2016-10-03] MEDS: IPRATROPIUM/ALBUTEROL 0.5-2.5 MG/3 ML AMPUL NEB SCH ×3 (07:38→21:02)
[2016-10-03] MEDS: BUDESONIDE NEB 0.5 MG/2 ML AMPUL NEB SCH ×2 (07:38→21:02)
--- NOTE | 2016-10-03 07:47 | PDOC PROGRESS REPORT ---
Subjective Progress Note for:: 10/03/16 Subjective:: sedated Physical Exam Vital Signs: Temp Pulse Resp BP Pulse Ox 98.1 F 71 17 159/84 H 100 10/03/16 04:56 10/02/16 20:00 10/03/16 06:00 10/03/16 05:30 10/03/16 06:00 Intake & Output 10/01/16 10/02/16 10/03/16 07:59 07:59 07:59 Intake Total 1220 3770 3569 Output Total 850 4730 2375 Balance 370 -960 1194 Weight 242 lb 4.608 oz 250 lb 0.067 oz Respiratory exam: PRESENT: rhonchi Cardiovascular exam: PRESENT: irregular rhythm. ABSENT: diastolic murmur, systolic murmur GI/Abdominal exam: ABSENT: mass, organolmegaly Extremities exam: ABSENT: pedal edema Results Laboratory Results: 10/03/16 04:25 10/03/16 04:25 10/03/16 10/03/16 10/03/16 04:25 04:25 04:25 WBC 11.2 H RBC 3.21 L Hgb 9.0 L Hct 26.6 L MCV 83 MCH 28.1 MCHC 33.8 RDW 16.7 H Plt Count 233 Seg Neutrophils % Not Reportable Lymphocytes % Not Reportable Monocytes % Not Reportable Eosinophils % Not Reportable Basophils % Not Reportable Absolute Neutrophils Not Reportable Absolute Lymphocytes Not Reportable Absolute Monocytes Not Reportable Absolute Eosinophils Not Reportable Absolute Basophils Not Reportable Carbonic Acid 1.10 HCO3/H2CO3 Ratio 27:1 ABG pH 7.53 H ABG pCO2 36.5 ABG pO2 119.3 H ABG HCO3 29.8 H ABG O2 Saturation 98.7 H ABG Base Excess 6.6 FiO2 30% Sodium 137.0 Potassium 4.2 Chloride 103 Carbon Dioxide 27 Anion Gap 7 BUN 31 H Creatinine 0.88 Est GFR ( Amer) > 60 Est GFR (Non-Af Amer) > 60 Glucose 274 H Calcium 9.2 Total Bilirubin 0.4 AST 24 ALT 58 Alkaline Phosphatase 77 Total Protein 4.7 L Albumin 2.2 L 09/30/16 15:18 Nasophary ([facility] Only) MRSA Surveillance Culture - Final NO MRSA RECOVERED 10/01/16 10/01/16 10/01/16 05:50 05:50 21:15 Creatine Kinase 262 H CK-MB (CK-2) 5.95 H Troponin I 0.040 NT-Pro-B Natriuret Pep 814 Impressions: Abdomen Ultrasound 09/30/16 00:00 IMPRESSION: SEVERELY LIMITED ABDOMINAL ULTRASOUND. HEPATIC STEATOSIS. NO ADDITIONAL SIGNIFICANT ABNORMALITY NOTED. Acute Abdomen Series 09/30/16 01:58 IMPRESSION: Constipation. No findings to suggest obstruction. Chest X-Ray 10/03/16 06:00 IMPRESSION: Tip of an OG tube seen to level of the lower chest likely at the distal esophagus; consider 11 cm advancement. stable right basilar opacity - effusion. Additional lines and tubes. Assessment & Plan - Diagnosis (1) Acute and chronic respiratory failure Qualifiers: Respiratory failure complication: unspecified whether with hypoxia or hypercapnia Qualified Code(s): J96.20 - Acute and chronic respiratory failure, unspecified whether with hypoxia or hypercapnia Is this a current diagnosis for this admission?: YesPlan: sat ok on 30% (2) Acute renal injury due to sepsis Is this a current diagnosis for this admission?: YesPlan: RLL infiltrate. MSSA in wound & 2 bloods. Consider switching vanc & fortaz to cefazolin (3) Hyponatremia Is this a current diagnosis for this admission?: Yes (4) Constipation Qualifiers: Constipation type: slow transit constipation Qualified Code(s): K59.01 - Slow transit constipation Is this a current diagnosis for this admission?: Yes (5) LFT elevation Is this a current diagnosis for this admission?: Yes (6) Precordial chest pain Is this a current diagnosis for this admission?: Yes (7) Paroxysmal atrial fibrillation Is this a current diagnosis for this admission?: YesPlan: rate ok off amiodarone on diltiazem & dig (8) Diabetes Qualifiers: Diabetes mellitus type: type 2 Diabetes mellitus complication status: without complication 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 Taking off orders. Start oxepa
[2016-10-03] MEDS ORDERED: RACEPINEPHRINE HCL 2.25% NEB 0.5 ML AMPUL NEB PRN (09:30)
[2016-10-03] MEDS ORDERED: INSULIN GLARGINE,HUM.REC.ANLOG 1,000 UNIT/10 ML UNIT SUBCUT SCH (10:00)
[2016-10-03] MEDS: ASPIRIN 81 MG TABLET, CHEWABLE PO SCH (10:12)
[2016-10-03] MEDS: PREDNISONE 20 MG TABLET PO SCH (10:12)
[2016-10-03] MEDS: DIGOXIN 0.125 MG TABLET PO SCH (10:12)
[2016-10-03] MEDS: LANSOPRAZOLE 30 MG TAB.RAP.DR PO SCH (10:12)
[2016-10-03] MEDS: ENOXAPARIN SODIUM INJ 30 MG/0.3 ML DISP.SYRIN SUBCUT SCH (10:12)
[2016-10-03] MEDS: PREDNISONE 5 MG TABLET PO SCH (10:15)
[2016-10-03] MEDS: VANCOMYCIN HCL 1,250 MG in DEXTROSE 5%-WATER 250 ML IV SCH (10:24)
[2016-10-03] MEDS: LUBIPROSTONE 24 MCG CAPSULE PO SCH ×2 (10:31→17:39)
[2016-10-03] MEDS ORDERED: DEXAMETHASONE SOD PHOSPHATE INJ 4 MG/1 ML VIAL ONE (10:55)
[2016-10-03] MEDS ORDERED: ALBUTEROL SULFATE 0.083% NEB 2.5 MG/3 ML AMPUL NEB ONE (11:01)
--- NOTE | 2016-10-03 11:48 | PDOC PROGRESS REPORT ---
Subjective Progress Note for:: 10/03/16 Subjective:: Intubated and sedated Physical Exam Vital Signs: Temp Pulse Resp BP Pulse Ox 98.2 F 92 23 H 162/98 H 100 10/03/16 10:00 10/03/16 11:01 10/03/16 11:01 10/03/16 10:30 10/03/16 11:01 Intake & Output 10/02/16 10/03/16 10/04/16 06:59 06:59 06:59 Intake Total 3770 3569 Output Total 4505 2600 510 Balance -735 969 -510 Weight 109.9 kg 113.4 kg General appearance: PRESENT: no acute distress, disheveled, obese, well- developed Head exam: PRESENT: atraumatic, normocephalic Eye exam: PRESENT: conjunctiva pale Mouth exam: PRESENT: dry mucosa, neck supple, other - ET tube in place Neck exam: ABSENT: carotid bruit, JVD, lymphadenopathy, thyromegaly Respiratory exam: PRESENT: decreased breath sounds, prolonged expiratory phas, unlabored, wheezes - Scattered bilaterally Cardiovascular exam: PRESENT: RRR, +S1, +S2 Pulses: PRESENT: normal radial pulses GI/Abdominal exam: PRESENT: normal bowel sounds, soft. ABSENT: distended, guarding, mass, organolmegaly, rebound, tenderness Rectal exam: PRESENT: deferred Gentrourinary exam: PRESENT: indwelling catheter Musculoskeletal exam: PRESENT: normal inspection Skin exam: PRESENT: dry, warm Results Laboratory Results: 10/03/16 04:25 10/03/16 04:25 10/03/16 10/03/16 10/03/16 04:25 04:25 04:25 WBC 11.2 H RBC 3.21 L Hgb 9.0 L Hct 26.6 L MCV 83 MCH 28.1 MCHC 33.8 RDW 16.7 H Plt Count 233 Seg Neutrophils % Not Reportable Lymphocytes % Not Reportable Monocytes % Not Reportable Eosinophils % Not Reportable Basophils % Not Reportable Absolute Neutrophils Not Reportable Absolute Lymphocytes Not Reportable Absolute Monocytes Not Reportable Absolute Eosinophils Not Reportable Absolute Basophils Not Reportable Carbonic Acid 1.10 HCO3/H2CO3 Ratio 27:1 ABG pH 7.53 H ABG pCO2 36.5 ABG pO2 119.3 H ABG HCO3 29.8 H ABG O2 Saturation 98.7 H ABG Base Excess 6.6 FiO2 30% Sodium 137.0 Potassium 4.2 Chloride 103 Carbon Dioxide 27 Anion Gap 7 BUN 31 H Creatinine 0.88 Est GFR ( Amer) > 60 Est GFR (Non-Af Amer) > 60 Glucose 274 H Calcium 9.2 Total Bilirubin 0.4 AST 24 ALT 58 Alkaline Phosphatase 77 Total Protein 4.7 L Albumin 2.2 L 09/30/16 15:18 Nasophary ([facility] Only) MRSA Surveillance Culture - Final NO MRSA RECOVERED 10/01/16 10/01/16 10/01/16 05:50 05:50 21:15 Creatine Kinase 262 H CK-MB (CK-2) 5.95 H Troponin I 0.040 NT-Pro-B Natriuret Pep 814 Impressions: Abdomen Ultrasound 09/30/16 00:00 IMPRESSION: SEVERELY LIMITED ABDOMINAL ULTRASOUND. HEPATIC STEATOSIS. NO ADDITIONAL SIGNIFICANT ABNORMALITY NOTED. Acute Abdomen Series 09/30/16 01:58 IMPRESSION: Constipation. No findings to suggest obstruction. Chest X-Ray 10/03/16 06:00 IMPRESSION: Tip of an OG tube seen to level of the lower chest likely at the distal esophagus; consider 11 cm advancement. stable right basilar opacity - effusion. Additional lines and tubes. Assessment & Plan - Diagnosis (1) Pneumonia Qualifiers: Aspiration pneumonia type: unspecified Laterality: right Lung location: lower lobe of lung Is this a current diagnosis for this admission?: YesPlan: Clinical and radiographic improvement (2) Acute and chronic respiratory failure ([id number]) Is this a current diagnosis for this admission?: YesPlan: ABGs are good minute ventilation, respiratory rate, FiO2 and airway pressures suggest successful extubation will proceed with extubation (3) Status asthmaticus Qualifiers: Asthma severity: severe persistent Qualified Code(s): J45.52 - Severe persistent asthma with status asthmaticus Is this a current diagnosis for this admission?: YesPlan: the airways are still a little twitching but there is good air movement (4) Body mass index (BMI) of 40.0-44.9 in adult Is this a current diagnosis for this admission?: Yes - Time Critical Time spent with patient: 35 or more minutes - 55 minutes extubation
[2016-10-03] MEDS: AMPICILLIN SODIUM/SULBACTAM NA 1.5 GM in NORMAL SALINE 50 ML IV SCH ×2 (15:41→20:07)
[2016-10-03] MEDS: DILTIAZEM HCL 30 MG TABLET PO SCH (20:07)
[2016-10-03] MEDS: MONTELUKAST SODIUM 10 MG TABLET PO SCH (20:08)
[2016-10-04] MEDS: INSULIN LISPRO 100 UNIT/ML 3 ML VIAL SUBCUT PRN ×6 (00:54→21:44)
[2016-10-04] MEDS: DILTIAZEM HCL 30 MG TABLET PO SCH (02:00)
[2016-10-04] MEDS: AMPICILLIN SODIUM/SULBACTAM NA 1.5 GM in NORMAL SALINE 50 ML IV SCH ×4 (02:04→21:46)
[2016-10-04] MEDS: IPRATROPIUM/ALBUTEROL 0.5-2.5 MG/3 ML AMPUL NEB SCH ×4 (02:19→19:58)
[2016-10-04 05:17] LABS: ANION GAP 7 (5-19); BLOOD UREA NITROGEN 29 mg/dL (7-20); CALCIUM 9.4 mg/dL (8.4-10.2); CARBON DIOXIDE 28 mmol/L (22-30); CHLORIDE 104 mmol/L (98-107); CREATININE RESULT 0.73 mg/dL (0.52-1.25); GLUCOSE 214 mg/dL (75-110); MAGNESIUM 2.5 mg/dL (1.6-2.3); POTASSIUM 4.6 mmol/L (3.6-5.0)
[2016-10-04 05:50] LABS: HEMOGLOBIN 9.5 g/dL (13.5-17.0); HGB HCT DIFFERENCE 0.5; MEAN CORPUSCULAR HEMOGLOBIN 28.3 pg (27.0-33.4); MEAN CORPUSCULAR HGB CONC 33.9 g/dL (32.0-36.0); MEAN CORPUSCULAR VOLUME 83 fl (80-97); RED BLOOD COUNT 3.35 10^6/uL (4.35-5.55); RED CELL DISTRIBUTION WIDTH 16.9 % (11.5-14.0); WHITE BLOOD COUNT 11.3 10^3/uL (4.0-10.5)
[2016-10-04] MEDS: NORMAL SALINE 1000 ML 1,000 ML IV PRN (05:54)
[2016-10-04 06:01] LABS: BASOPHILS % (MANUAL) 0 % (0-2); EOSINOPHILS % (MANUAL) 0 % (0-6); LYMPHOCYTES % (MANUAL) 6 % (13-45); TOTAL CELLS COUNTED 100
[2016-10-04 06:05] LABS: ANISOCYTOSIS 1+; TOXIC GRANULATION SLIGHT; TOXIC VACUOLATION PRESENT
[2016-10-04 06:45] LABS: ARTERIAL BLOOD O2 SATURATION 93.1 % (94-98)
[2016-10-04] MEDS: LANSOPRAZOLE 30 MG TAB.RAP.DR PO SCH (07:29)
--- NOTE | 2016-10-04 08:05 | PDOC PROGRESS REPORT ---
Subjective Progress Note for:: 10/04/16 Subjective:: better. Wonders what happened. Physical Exam Vital Signs: Temp Pulse Resp BP Pulse Ox 97.9 F 77 16 162/88 H 99 10/04/16 04:54 10/04/16 02:19 10/04/16 06:00 10/04/16 04:31 10/04/16 06:00 Intake & Output 10/03/16 10/04/16 10/05/16 07:59 07:59 07:59 Intake Total 3569 2267 Output Total 2374 2305 Balance 1194 -458 Weight 250 lb 0.067 oz 252 lb 10.396 oz General appearance: PRESENT: no acute distress Respiratory exam: PRESENT: rhonchi Cardiovascular exam: PRESENT: irregular rhythm. ABSENT: diastolic murmur, systolic murmur GI/Abdominal exam: ABSENT: mass, organolmegaly, tenderness Extremities exam: PRESENT: pedal edema - trace Neurological exam: PRESENT: oriented to situation Psychiatric exam: PRESENT: appropriate affect Results Laboratory Results: 10/04/16 05:19 10/04/16 04:39 10/04/16 10/04/16 10/04/16 04:39 04:39 05:19 WBC Cancelled 11.3 H RBC Cancelled 3.35 L Hgb Cancelled 9.5 L Hct Cancelled 28.0 L MCV Cancelled 83 MCH Cancelled 28.3 MCHC Cancelled 33.9 RDW Cancelled 16.9 H Plt Count Cancelled 251 Seg Neutrophils % Cancelled Not Reportable Lymphocytes % Cancelled Not Reportable Monocytes % Cancelled Not Reportable Eosinophils % Cancelled Not Reportable Basophils % Cancelled Not Reportable Absolute Neutrophils Cancelled Not Reportable Absolute Lymphocytes Cancelled Not Reportable Absolute Monocytes Cancelled Not Reportable Absolute Eosinophils Cancelled Not Reportable Absolute Basophils Cancelled Not Reportable Carbonic Acid HCO3/H2CO3 Ratio ABG pH ABG pCO2 ABG pO2 ABG HCO3 ABG O2 Saturation ABG Base Excess FiO2 Sodium 139.0 Potassium 4.6 Chloride 104 Carbon Dioxide 28 Anion Gap 7 BUN 29 H Creatinine 0.73 Est GFR ( Amer) > 60 Est GFR (Non-Af Amer) > 60 Glucose 214 H Calcium 9.4 Magnesium 2.5 H 10/04/16 10/04/16 06:15 06:35 WBC RBC Hgb Hct MCV MCH MCHC RDW Plt Count Seg Neutrophils % Lymphocytes % Monocytes % Eosinophils % Basophils % Absolute Neutrophils Absolute Lymphocytes Absolute Monocytes Absolute Eosinophils Absolute Basophils Carbonic Acid Cancelled 1.32 HCO3/H2CO3 Ratio Cancelled 21:1 ABG pH Cancelled 7.42 ABG pCO2 Cancelled 43.7 ABG pO2 Cancelled 65.2 L ABG HCO3 Cancelled 27.8 H ABG O2 Saturation Cancelled 93.1 L ABG Base Excess Cancelled 3.0 FiO2 Cancelled 2L Sodium Potassium Chloride Carbon Dioxide Anion Gap BUN Creatinine Est GFR ( Amer) Est GFR (Non-Af Amer) Glucose Calcium Magnesium 10/01/16 10/01/16 10/01/16 05:50 05:50 21:15 Creatine Kinase 262 H CK-MB (CK-2) 5.95 H Troponin I 0.040 NT-Pro-B Natriuret Pep 814 Impressions: Abdomen Ultrasound 09/30/16 00:00 IMPRESSION: SEVERELY LIMITED ABDOMINAL ULTRASOUND. HEPATIC STEATOSIS. NO ADDITIONAL SIGNIFICANT ABNORMALITY NOTED. Acute Abdomen Series 09/30/16 01:58 IMPRESSION: Constipation. No findings to suggest obstruction. Chest X-Ray 10/04/16 06:00 IMPRESSION: Small right basilar opacity -effusion. Right mini port. Assessment & Plan - Diagnosis (1) Acute renal injury due to sepsis Is this a current diagnosis for this admission?: YesPlan: now on unasyn for MSSA (2) Acute and chronic respiratory failure Qualifiers: Respiratory failure complication: unspecified whether with hypoxia or hypercapnia Qualified Code(s): J96.20 - Acute and chronic respiratory failure, unspecified whether with hypoxia or hypercapnia Is this a current diagnosis for this admission?: YesPlan: was extubated. To IMCU (3) Hyponatremia Is this a current diagnosis for this admission?: Yes (4) Constipation Qualifiers: Constipation type: slow transit constipation Qualified Code(s): K59.01 - Slow transit constipation Is this a current diagnosis for this admission?: Yes (5) LFT elevation Is this a current diagnosis for this admission?: Yes (6) Precordial chest pain Is this a current diagnosis for this admission?: Yes (7) Paroxysmal atrial fibrillation Is this a current diagnosis for this admission?: YesPlan: has been through all the options and now back on dig & diltiazem. Try 240mg qd (8) Diabetes Qualifiers: Diabetes mellitus type: type 2 Diabetes mellitus complication status: without complication Diabetes mellitus shelter insulin use: with shelter use Qualified Code(s): E11.9 - Type 2 diabetes mellitus without complications Is this a current diagnosis for this admission?: Yes
[2016-10-04] MEDS: BUDESONIDE NEB 0.5 MG/2 ML AMPUL NEB SCH ×2 (08:53→19:58)
[2016-10-04] MEDS: LUBIPROSTONE 24 MCG CAPSULE PO SCH ×2 (09:21→17:11)
[2016-10-04] MEDS: PREDNISONE 5 MG TABLET PO SCH (09:22)
[2016-10-04] MEDS: DILTIAZEM HCL 240 MG CAPSULE.CR PO SCH (09:22)
[2016-10-04] MEDS: ASPIRIN 81 MG TABLET, CHEWABLE PO SCH (09:22)
[2016-10-04] MEDS: PREDNISONE 20 MG TABLET PO SCH (09:22)
[2016-10-04] MEDS: ENOXAPARIN SODIUM INJ 30 MG/0.3 ML DISP.SYRIN SUBCUT SCH (09:24)
--- NOTE | 2016-10-04 11:44 | PDOC PROGRESS REPORT ---
Subjective Progress Note for:: 10/04/16 Subjective:: 24 hours status post extubation without complaint Physical Exam Vital Signs: Temp Pulse Resp BP Pulse Ox 97.9 F 77 16 162/88 H 99 10/04/16 04:54 10/04/16 02:19 10/04/16 06:00 10/04/16 04:31 10/04/16 06:00 Intake & Output 10/03/16 10/04/16 10/05/16 06:59 06:59 06:59 Intake Total 3569 2267 Output Total 8040 6885 Balance 969 -458 Weight 113.4 kg 114.6 kg General appearance: PRESENT: no acute distress, cooperative, disheveled, obese, well-developed Head exam: PRESENT: atraumatic, normocephalic Eye exam: PRESENT: conjunctiva pale, EOMI Mouth exam: PRESENT: dry mucosa, neck supple Neck exam: ABSENT: carotid bruit, JVD, lymphadenopathy, thyromegaly Respiratory exam: PRESENT: decreased breath sounds, prolonged expiratory phas, rhonchi, symmetrical, unlabored, wheezes Cardiovascular exam: PRESENT: RRR, +S1, +S2 Pulses: PRESENT: normal radial pulses GI/Abdominal exam: PRESENT: normal bowel sounds, soft. ABSENT: distended, guarding, mass, organolmegaly, rebound, tenderness Rectal exam: PRESENT: deferred Gentrourinary exam: PRESENT: indwelling catheter Musculoskeletal exam: PRESENT: normal inspection Neurological exam: PRESENT: alert, awake Psychiatric exam: PRESENT: normal mood Skin exam: PRESENT: dry, warm Results Laboratory Results: 10/04/16 05:19 10/04/16 04:39 10/04/16 10/04/16 10/04/16 04:39 04:39 05:19 WBC Cancelled 11.3 H RBC Cancelled 3.35 L Hgb Cancelled 9.5 L Hct Cancelled 28.0 L MCV Cancelled 83 MCH Cancelled 28.3 MCHC Cancelled 33.9 RDW Cancelled 16.9 H Plt Count Cancelled 251 Seg Neutrophils % Cancelled Not Reportable Lymphocytes % Cancelled Not Reportable Monocytes % Cancelled Not Reportable Eosinophils % Cancelled Not Reportable Basophils % Cancelled Not Reportable Absolute Neutrophils Cancelled Not Reportable Absolute Lymphocytes Cancelled Not Reportable Absolute Monocytes Cancelled Not Reportable Absolute Eosinophils Cancelled Not Reportable Absolute Basophils Cancelled Not Reportable Carbonic Acid HCO3/H2CO3 Ratio ABG pH ABG pCO2 ABG pO2 ABG HCO3 ABG O2 Saturation ABG Base Excess FiO2 Sodium 139.0 Potassium 4.6 Chloride 104 Carbon Dioxide 28 Anion Gap 7 BUN 29 H Creatinine 0.73 Est GFR ( Amer) > 60 Est GFR (Non-Af Amer) > 60 Glucose 214 H Calcium 9.4 Magnesium 2.5 H 10/04/16 10/04/16 06:15 06:35 WBC RBC Hgb Hct MCV MCH MCHC RDW Plt Count Seg Neutrophils % Lymphocytes % Monocytes % Eosinophils % Basophils % Absolute Neutrophils Absolute Lymphocytes Absolute Monocytes Absolute Eosinophils Absolute Basophils Carbonic Acid Cancelled 1.32 HCO3/H2CO3 Ratio Cancelled 21:1 ABG pH Cancelled 7.42 ABG pCO2 Cancelled 43.7 ABG pO2 Cancelled 65.2 L ABG HCO3 Cancelled 27.8 H ABG O2 Saturation Cancelled 93.1 L ABG Base Excess Cancelled 3.0 FiO2 Cancelled 2L Sodium Potassium Chloride Carbon Dioxide Anion Gap BUN Creatinine Est GFR ( Amer) Est GFR (Non-Af Amer) Glucose Calcium Magnesium 10/01/16 10/01/16 10/01/16 05:50 05:50 21:15 Creatine Kinase 262 H CK-MB (CK-2) 5.95 H Troponin I 0.040 NT-Pro-B Natriuret Pep 814 Impressions: Abdomen Ultrasound 09/30/16 00:00 IMPRESSION: SEVERELY LIMITED ABDOMINAL ULTRASOUND. HEPATIC STEATOSIS. NO ADDITIONAL SIGNIFICANT ABNORMALITY NOTED. Acute Abdomen Series 09/30/16 01:58 IMPRESSION: Constipation. No findings to suggest obstruction. Chest X-Ray 10/04/16 06:00 IMPRESSION: Small right basilar opacity -effusion. Right mini port. Assessment & Plan - Diagnosis (1) Pneumonia Qualifiers: Aspiration pneumonia type: unspecified Laterality: right Lung location: lower lobe of lung Is this a current diagnosis for this admission?: Yes (2) Acute and chronic respiratory failure ([id number]) Is this a current diagnosis for this admission?: YesPlan: 24 hours status post extubation stable as far (3) Status asthmaticus Qualifiers: Asthma severity: severe persistent Qualified Code(s): J45.52 - Severe persistent asthma with status asthmaticus Is this a current diagnosis for this admission?: YesPlan: Stable (4) Body mass index (BMI) of 40.0-44.9 in adult Is this a current diagnosis for this admission?: Yes - Time Critical Time spent with patient: 25-34 minutes
[2016-10-04] MEDS: MONTELUKAST SODIUM 10 MG TABLET PO SCH (21:46)
[2016-10-05] MEDS: IPRATROPIUM/ALBUTEROL 0.5-2.5 MG/3 ML AMPUL NEB SCH ×4 (02:04→19:57)
[2016-10-05] MEDS: AMPICILLIN SODIUM/SULBACTAM NA 1.5 GM in NORMAL SALINE 50 ML IV SCH ×4 (03:54→21:49)
[2016-10-05 04:48] LABS: HEMATOCRIT 32.1 % (37.9-51.0); HEMOGLOBIN 10.6 g/dL (13.5-17.0); HGB HCT DIFFERENCE -0.3; MEAN CORPUSCULAR HEMOGLOBIN 27.8 pg (27.0-33.4); MEAN CORPUSCULAR VOLUME 84 fl (80-97); RED BLOOD COUNT 3.82 10^6/uL (4.35-5.55); RED CELL DISTRIBUTION WIDTH 17.2 % (11.5-14.0); WHITE BLOOD COUNT 14.2 10^3/uL (4.0-10.5)
[2016-10-05 05:18] LABS: BAND NEUTROPHILS % (MANUAL) 6 % (3-5); BASOPHILS % (MANUAL) 0 % (0-2); EOSINOPHILS % (MANUAL) 0 % (0-6); LYMPHOCYTES % (MANUAL) 5 % (13-45); TOTAL CELLS COUNTED 100
[2016-10-05 05:20] LABS: TOXIC VACUOLATION PRESENT
[2016-10-05 05:21] LABS: ANISOCYTOSIS 1+; OVALOCYTES 1+; POIKILOCYTOSIS 1+; TARGET CELLS SLIGHT; TEAR DROP CELLS SLIGHT
[2016-10-05] MEDS: BUDESONIDE NEB 0.5 MG/2 ML AMPUL NEB SCH ×2 (08:11→19:57)
--- NOTE | 2016-10-05 08:11 | PDOC PROGRESS REPORT ---
Subjective Progress Note for:: 10/05/16 Subjective:: cpap annoys Physical Exam Vital Signs: Temp Pulse Resp BP Pulse Ox 98.7 F 93 20 154/85 H 95 10/05/16 03:30 10/05/16 03:30 10/05/16 03:30 10/05/16 03:30 10/05/16 04:54 Intake & Output 10/04/16 10/05/16 10/06/16 07:59 07:59 07:59 Intake Total 2267 1810 Output Total 2729 2250 Balance -458 -440 Weight 252 lb 10.396 oz 263 lb 3.711 oz General appearance: PRESENT: mild distress Respiratory exam: PRESENT: clear to auscultation ronni Cardiovascular exam: ABSENT: diastolic murmur, irregular rhythm, systolic murmur GI/Abdominal exam: PRESENT: other - obese. ABSENT: mass, organolmegaly, tenderness Extremities exam: ABSENT: pedal edema Neurological exam: PRESENT: altered - nurse noted paranoid delusions Psychiatric exam: PRESENT: appropriate affect Results Laboratory Results: 10/05/16 04:00 10/04/16 04:39 Abnormal - 24 hr 10/04/16 10/04/16 10/04/16 11:01 15:30 16:31 WBC RBC Hgb Hct RDW Seg Neuts % (Manual) Band Neutrophils % Lymphocytes % (Manual) Abs Neuts (Manual) POC Glucose 271 H 223 H 236 H 10/04/16 10/05/16 10/05/16 21:16 04:00 05:46 WBC 14.2 H RBC 3.82 L Hgb 10.6 L Hct 32.1 L RDW 17.2 H Seg Neuts % (Manual) 80 H Band Neutrophils % 6 H Lymphocytes % (Manual) 5 L Abs Neuts (Manual) 12.2 H POC Glucose 228 H 220 H Impressions: Abdomen Ultrasound 09/30/16 00:00 IMPRESSION: SEVERELY LIMITED ABDOMINAL ULTRASOUND. HEPATIC STEATOSIS. NO ADDITIONAL SIGNIFICANT ABNORMALITY NOTED. Acute Abdomen Series 09/30/16 01:58 IMPRESSION: Constipation. No findings to suggest obstruction. Chest X-Ray 10/04/16 06:00 IMPRESSION: Small right basilar opacity -effusion. Right mini port. Assessment & Plan - Diagnosis (1) Acute renal injury due to sepsis Is this a current diagnosis for this admission?: Yes (2) Acute and chronic respiratory failure Qualifiers: Respiratory failure complication: unspecified whether with hypoxia or hypercapnia Qualified Code(s): J96.20 - Acute and chronic respiratory failure, unspecified whether with hypoxia or hypercapnia Is this a current diagnosis for this admission?: Yes (3) Hyponatremia Is this a current diagnosis for this admission?: Yes (4) Constipation Qualifiers: Constipation type: slow transit constipation Qualified Code(s): K59.01 - Slow transit constipation Is this a current diagnosis for this admission?: YesPlan: still. Add lactulose (5) LFT elevation Is this a current diagnosis for this admission?: Yes (6) Precordial chest pain Is this a current diagnosis for this admission?: Yes (7) Paroxysmal atrial fibrillation Is this a current diagnosis for this admission?: Yes (8) Diabetes Qualifiers: Diabetes mellitus type: type 2 Diabetes mellitus complication status: without complication Diabetes mellitus roasterman insulin use: with roasterman use Qualified Code(s): E11.9 - Type 2 diabetes mellitus without complications Is this a current diagnosis for this admission?: YesPlan: increase sliding scale
[2016-10-05] MEDS: DIGOXIN 0.125 MG TABLET PO SCH (09:29)
[2016-10-05] MEDS: PREDNISONE 20 MG TABLET PO SCH (09:29)
[2016-10-05] MEDS: ASPIRIN 81 MG TABLET, CHEWABLE PO SCH (09:29)
[2016-10-05] MEDS: DILTIAZEM HCL 240 MG CAPSULE.CR PO SCH (09:29)
[2016-10-05] MEDS: LANSOPRAZOLE 30 MG TAB.RAP.DR PO SCH (09:29)
[2016-10-05] MEDS: PREDNISONE 5 MG TABLET PO SCH (09:29)
[2016-10-05] MEDS: LACTULOSE SYRUP 20 GM/30 ML UDCUP PO SCH ×2 (09:30→17:53)
[2016-10-05] MEDS: LUBIPROSTONE 24 MCG CAPSULE PO SCH ×2 (09:31→17:53)
[2016-10-05] MEDS: ENOXAPARIN SODIUM INJ 30 MG/0.3 ML DISP.SYRIN SUBCUT SCH (09:32)
[2016-10-05] MEDS: INSULIN LISPRO 100 UNIT/ML 3 ML VIAL SUBCUT PRN ×3 (12:19→21:47)
[2016-10-05 12:27] LABS: ARTERIAL BLOOD BASE EXCESS 2.9 mmol/L; ARTERIAL BLOOD O2 SATURATION 91.6 % (94-98)
[2016-10-06] MEDS: MONTELUKAST SODIUM 10 MG TABLET PO SCH ×2 (00:20→22:28)
[2016-10-06] MEDS: IPRATROPIUM/ALBUTEROL 0.5-2.5 MG/3 ML AMPUL NEB SCH ×4 (02:09→20:06)
[2016-10-06] MEDS: AMPICILLIN SODIUM/SULBACTAM NA 1.5 GM in NORMAL SALINE 50 ML IV SCH ×4 (03:44→22:25)
--- NOTE | 2016-10-06 06:23 | PDOC PROGRESS REPORT ---
Subjective Progress Note for:: 10/06/16 Subjective:: Oriented. Needed bipap all night. Does not want vent again. Does not want cpr either. So DNR Physical Exam Vital Signs: Temp Pulse Resp BP Pulse Ox 98.9 F 92 20 146/87 H 100 10/06/16 03:38 10/06/16 03:38 10/06/16 03:38 10/06/16 03:38 10/06/16 03:38 Intake & Output 10/04/16 10/05/16 10/06/16 07:59 07:59 07:59 Intake Total 2267 1810 1559 Output Total 2725 2250 1200 Balance -458 -440 359 Weight 252 lb 10.396 oz 263 lb 3.711 oz 266 lb 15.677 oz General appearance: PRESENT: no acute distress Respiratory exam: PRESENT: clear to auscultation ronni Cardiovascular exam: PRESENT: irregular rhythm. ABSENT: diastolic murmur, systolic murmur GI/Abdominal exam: ABSENT: mass, organolmegaly, tenderness Extremities exam: ABSENT: pedal edema Neurological exam: PRESENT: oriented to situation Psychiatric exam: PRESENT: appropriate affect Results Laboratory Results: 10/05/16 04:00 10/04/16 04:39 10/05/16 12:10 Carbonic Acid 1.22 HCO3/H2CO3 Ratio 22:1 ABG pH 7.45 ABG pCO2 40.5 ABG pO2 58.9 L ABG HCO3 27.2 H ABG O2 Saturation 91.6 L ABG Base Excess 2.9 FiO2 ROOM AIR Impressions: Abdomen Ultrasound 09/30/16 00:00 IMPRESSION: SEVERELY LIMITED ABDOMINAL ULTRASOUND. HEPATIC STEATOSIS. NO ADDITIONAL SIGNIFICANT ABNORMALITY NOTED. Acute Abdomen Series 09/30/16 01:58 IMPRESSION: Constipation. No findings to suggest obstruction. Chest X-Ray 10/04/16 06:00 IMPRESSION: Small right basilar opacity -effusion. Right mini port. Assessment & Plan - Diagnosis (1) Acute renal injury due to sepsis Is this a current diagnosis for this admission?: Yes (2) Acute and chronic respiratory failure Qualifiers: Respiratory failure complication: unspecified whether with hypoxia or hypercapnia Qualified Code(s): J96.20 - Acute and chronic respiratory failure, unspecified whether with hypoxia or hypercapnia Is this a current diagnosis for this admission?: YesPlan: too weak to transfer. DNR (3) Hyponatremia Is this a current diagnosis for this admission?: Yes (4) Constipation Qualifiers: Constipation type: slow transit constipation Qualified Code(s): K59.01 - Slow transit constipation Is this a current diagnosis for this admission?: Yes (5) LFT elevation Is this a current diagnosis for this admission?: Yes (6) Precordial chest pain Is this a current diagnosis for this admission?: Yes (7) Paroxysmal atrial fibrillation Is this a current diagnosis for this admission?: Yes (8) Diabetes Qualifiers: Diabetes mellitus type: type 2 Diabetes mellitus complication status: without complication 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
[2016-10-06] MEDS: LANSOPRAZOLE 30 MG TAB.RAP.DR PO SCH (07:08)
[2016-10-06] MEDS: INSULIN LISPRO 100 UNIT/ML 3 ML VIAL SUBCUT PRN ×4 (07:10→23:01)
[2016-10-06] MEDS: BUDESONIDE NEB 0.5 MG/2 ML AMPUL NEB SCH ×2 (08:04→20:06)
[2016-10-06] MEDS: ENOXAPARIN SODIUM INJ 30 MG/0.3 ML DISP.SYRIN SUBCUT SCH (09:20)
[2016-10-06] MEDS: PREDNISONE 20 MG TABLET PO SCH (09:21)
[2016-10-06] MEDS: LACTULOSE SYRUP 20 GM/30 ML UDCUP PO SCH ×2 (09:21→17:14)
[2016-10-06] MEDS: PREDNISONE 5 MG TABLET PO SCH (09:21)
[2016-10-06] MEDS: DILTIAZEM HCL 240 MG CAPSULE.CR PO SCH (09:22)
[2016-10-06] MEDS: ASPIRIN 81 MG TABLET, CHEWABLE PO SCH (09:22)
[2016-10-06] MEDS: LUBIPROSTONE 24 MCG CAPSULE PO SCH ×2 (09:23→17:15)
--- NOTE | 2016-10-06 09:41 | PDOC PROGRESS REPORT ---
Subjective Progress Note for:: 10/05/16 Subjective:: still a little sob weak Physical Exam Vital Signs: Temp Pulse Resp BP Pulse Ox 97.5 F 93 20 128/88 H 93 10/05/16 07:23 10/05/16 08:10 10/05/16 08:10 10/05/16 07:23 10/05/16 08:10 Intake & Output 10/04/16 10/05/16 10/06/16 06:59 06:59 06:59 Intake Total 2267 1610 200 Output Total 2725 1800 450 Balance -458 -190 -250 Weight 114.6 kg 119.4 kg General appearance: PRESENT: no acute distress, cooperative, disheveled, morbidly obese, well-developed Head exam: PRESENT: atraumatic, normocephalic Eye exam: PRESENT: conjunctiva pink, EOMI Neck exam: ABSENT: carotid bruit, JVD, lymphadenopathy, thyromegaly Respiratory exam: PRESENT: decreased breath sounds, prolonged expiratory phas, rhonchi, symmetrical, unlabored, wheezes Cardiovascular exam: PRESENT: RRR, +S1, +S2 Pulses: PRESENT: normal radial pulses GI/Abdominal exam: PRESENT: ascites Rectal exam: PRESENT: deferred Gentrourinary exam: PRESENT: indwelling catheter Neurological exam: PRESENT: awake Skin exam: PRESENT: dry, warm Results Laboratory Results: 10/05/16 04:00 10/04/16 04:39 10/05/16 04:00 WBC 14.2 H RBC 3.82 L Hgb 10.6 L Hct 32.1 L MCV 84 MCH 27.8 MCHC 33.0 RDW 17.2 H Plt Count 318 Seg Neutrophils % Not Reportable Lymphocytes % Not Reportable Monocytes % Not Reportable Eosinophils % Not Reportable Basophils % Not Reportable Absolute Neutrophils Not Reportable Absolute Lymphocytes Not Reportable Absolute Monocytes Not Reportable Absolute Eosinophils Not Reportable Absolute Basophils Not Reportable 10/01/16 10/01/16 10/01/16 05:50 05:50 21:15 Creatine Kinase 262 H CK-MB (CK-2) 5.95 H Troponin I 0.040 NT-Pro-B Natriuret Pep 814 Impressions: Abdomen Ultrasound 09/30/16 00:00 IMPRESSION: SEVERELY LIMITED ABDOMINAL ULTRASOUND. HEPATIC STEATOSIS. NO ADDITIONAL SIGNIFICANT ABNORMALITY NOTED. Acute Abdomen Series 09/30/16 01:58 IMPRESSION: Constipation. No findings to suggest obstruction. Chest X-Ray 10/04/16 06:00 IMPRESSION: Small right basilar opacity -effusion. Right mini port. Assessment & Plan - Diagnosis (1) Pneumonia Qualifiers: Aspiration pneumonia type: unspecified Laterality: right Lung location: lower lobe of lung Is this a current diagnosis for this admission?: Yes (2) Acute and chronic respiratory failure ([id number]) Is this a current diagnosis for this admission?: Yes (3) Status asthmaticus Qualifiers: Asthma severity: severe persistent Qualified Code(s): J45.52 - Severe persistent asthma with status asthmaticus Is this a current diagnosis for this admission?: YesPlan: stable continues to wheeze (4) Body mass index (BMI) of 40.0-44.9 in adult Is this a current diagnosis for this admission?: Yes
[2016-10-06] MEDS: INSULIN GLARGINE,HUM.REC.ANLOG 300 UNIT/3 ML INSULN.PEN SUBCUT SCH (10:16)
[2016-10-06] MEDS: ALBUTEROL SULFATE 0.083% NEB 2.5 MG/3 ML AMPUL NEB PRN (18:36)
[2016-10-07] MEDS: IPRATROPIUM/ALBUTEROL 0.5-2.5 MG/3 ML AMPUL NEB SCH ×4 (01:43→20:18)
[2016-10-07] MEDS: AMPICILLIN SODIUM/SULBACTAM NA 1.5 GM in NORMAL SALINE 50 ML IV SCH ×4 (04:18→22:07)
[2016-10-07] MEDS: ALBUTEROL SULFATE 0.083% NEB 2.5 MG/3 ML AMPUL NEB PRN ×5 (04:52→22:17)
--- NOTE | 2016-10-07 07:11 | PDOC PROGRESS REPORT ---
Subjective Progress Note for:: 10/07/16 Subjective:: still too weak to stand & urinate. Does not like bipap but used it 4h Physical Exam Vital Signs: Temp Pulse Resp BP Pulse Ox 98.5 F 98 20 163/94 H 100 10/07/16 04:14 10/07/16 04:52 10/07/16 04:52 10/07/16 04:14 10/07/16 04:14 Intake & Output 10/05/16 10/06/16 10/07/16 07:59 07:59 07:59 Intake Total 1810 1659 2118 Output Total 2250 1500 1000 Balance -183 870 6884 Weight 263 lb 3.711 oz 266 lb 15.677 oz 266 lb 12.149 oz General appearance: PRESENT: no acute distress Respiratory exam: PRESENT: wheezes - mild Cardiovascular exam: PRESENT: irregular rhythm. ABSENT: diastolic murmur, systolic murmur GI/Abdominal exam: ABSENT: mass, organolmegaly, tenderness Extremities exam: ABSENT: pedal edema Results Laboratory Results: 10/05/16 04:00 10/04/16 04:39 Impressions: Abdomen Ultrasound 09/30/16 00:00 IMPRESSION: SEVERELY LIMITED ABDOMINAL ULTRASOUND. HEPATIC STEATOSIS. NO ADDITIONAL SIGNIFICANT ABNORMALITY NOTED. Acute Abdomen Series 09/30/16 01:58 IMPRESSION: Constipation. No findings to suggest obstruction. Chest X-Ray 10/04/16 06:00 IMPRESSION: Small right basilar opacity -effusion. Right mini port. Assessment & Plan - Diagnosis (1) Acute renal injury due to sepsis Is this a current diagnosis for this admission?: YesPlan: ua culture pineda out urinal (2) Acute and chronic respiratory failure Qualifiers: Respiratory failure complication: unspecified whether with hypoxia or hypercapnia Qualified Code(s): J96.20 - Acute and chronic respiratory failure, unspecified whether with hypoxia or hypercapnia Is this a current diagnosis for this admission?: YesPlan: sats ok (3) Hyponatremia Is this a current diagnosis for this admission?: Yes (4) Constipation Qualifiers: Constipation type: slow transit constipation Qualified Code(s): K59.01 - Slow transit constipation Is this a current diagnosis for this admission?: Yes (5) LFT elevation Is this a current diagnosis for this admission?: Yes (6) Precordial chest pain Is this a current diagnosis for this admission?: Yes (7) Paroxysmal atrial fibrillation Is this a current diagnosis for this admission?: Yes (8) Diabetes Qualifiers: Diabetes mellitus type: type 2 Diabetes mellitus complication status: without complication 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 Beneprotein
[2016-10-07] MEDS: BUDESONIDE NEB 0.5 MG/2 ML AMPUL NEB SCH ×2 (08:12→20:18)
[2016-10-07] MEDS: DILTIAZEM HCL 240 MG CAPSULE.CR PO SCH (09:37)
[2016-10-07] MEDS: ENOXAPARIN SODIUM INJ 30 MG/0.3 ML DISP.SYRIN SUBCUT SCH (09:37)
[2016-10-07] MEDS: LACTULOSE SYRUP 20 GM/30 ML UDCUP PO SCH ×2 (09:38→17:58)
[2016-10-07] MEDS: PREDNISONE 5 MG TABLET PO SCH (09:38)
[2016-10-07] MEDS: LANSOPRAZOLE 30 MG TAB.RAP.DR PO SCH (09:38)
[2016-10-07] MEDS: LUBIPROSTONE 24 MCG CAPSULE PO SCH ×2 (09:38→17:58)
[2016-10-07] MEDS: ASPIRIN 81 MG TABLET, CHEWABLE PO SCH (09:38)
[2016-10-07] MEDS: PREDNISONE 20 MG TABLET PO SCH (09:38)
[2016-10-07] MEDS: INSULIN GLARGINE,HUM.REC.ANLOG 300 UNIT/3 ML INSULN.PEN SUBCUT SCH (09:39)
[2016-10-07] MEDS: INSULIN LISPRO 100 UNIT/ML 3 ML VIAL SUBCUT PRN ×2 (14:08→17:58)
[2016-10-07 14:49] LABS: APPEARANCE,URINE SLIGHTLY-CLOUDY; BILIRUBIN,URINE NEGATIVE (NEGATIVE); GLUCOSE, URINE >=500 mg/dL (NEGATIVE); KETONES,URINE TRACE mg/dL (NEGATIVE); LEUKOCYTE ESTERASE,URINE NEGATIVE (NEGATIVE); NITRITE,URINE NEGATIVE (NEGATIVE); PROTEIN,URINE NEGATIVE (NEGATIVE); URINE SPECIFIC GRAVITY 1.013; UROBILINOGEN,URINE NEGATIVE mg/dL (<2.0)
[2016-10-07] MEDS ORDERED: ONDANSETRON HCL INJ/PF 4 MG/2 ML SDV IV PRN (20:51)
[2016-10-07] MEDS ORDERED: ONDANSETRON HCL INJ/PF 4 MG/2 ML SDV ONE (20:55)
[2016-10-07] MEDS ORDERED: DIGOXIN 0.125 MG TABLET PO SCH (22:00)
[2016-10-07] MEDS: MONTELUKAST SODIUM 10 MG TABLET PO SCH (22:09)
[2016-10-08] MEDS: ALBUTEROL SULFATE 0.083% NEB 2.5 MG/3 ML AMPUL NEB PRN ×2 (00:35→06:24)
[2016-10-08] MEDS: IPRATROPIUM/ALBUTEROL 0.5-2.5 MG/3 ML AMPUL NEB SCH ×4 (02:20→19:02)
[2016-10-08] MEDS: AMPICILLIN SODIUM/SULBACTAM NA 1.5 GM in NORMAL SALINE 50 ML IV SCH ×4 (02:50→20:26)
[2016-10-08] MEDS: BUDESONIDE NEB 0.5 MG/2 ML AMPUL NEB SCH ×2 (07:44→19:03)
--- NOTE | 2016-10-08 08:07 | PDOC PROGRESS REPORT ---
Subjective Progress Note for:: 10/08/16 Subjective:: yesterday needed albuterol q2h. Now better. Vomited. Got ondansetron Physical Exam Vital Signs: Temp Pulse Resp BP Pulse Ox 98.6 F 101 H 20 149/97 H 100 10/08/16 03:27 10/08/16 07:00 10/08/16 06:24 10/08/16 03:27 10/08/16 03:27 Intake & Output 10/07/16 10/08/16 10/09/16 07:59 07:59 07:59 Intake Total 2418 1687 Output Total 1300 570 Balance 1118 1117 Weight 266 lb 12.149 oz 271 lb 2.697 oz General appearance: PRESENT: no acute distress Respiratory exam: PRESENT: prolonged expiratory phas, wheezes - mild Cardiovascular exam: ABSENT: diastolic murmur, irregular rhythm, systolic murmur GI/Abdominal exam: PRESENT: distended. ABSENT: mass, organolmegaly, tenderness Neurological exam: PRESENT: oriented to situation Psychiatric exam: PRESENT: appropriate affect Results Laboratory Results: 10/05/16 04:00 10/04/16 04:39 10/07/16 13:40 Urine Color YELLOW Urine Appearance SLIGHTLY-CLOUDY Urine pH 6.0 Ur Specific [place] 1.013 Urine Protein NEGATIVE Urine Glucose (UA) >=500 H Urine Ketones TRACE H Urine Blood SMALL H Urine Nitrite NEGATIVE Ur Leukocyte Esterase NEGATIVE Urine WBC (Auto) 2 Urine RBC (Auto) 1 Impressions: Abdomen Ultrasound 09/30/16 00:00 IMPRESSION: SEVERELY LIMITED ABDOMINAL ULTRASOUND. HEPATIC STEATOSIS. NO ADDITIONAL SIGNIFICANT ABNORMALITY NOTED. Acute Abdomen Series 09/30/16 01:58 IMPRESSION: Constipation. No findings to suggest obstruction. Chest X-Ray 10/04/16 06:00 IMPRESSION: Small right basilar opacity -effusion. Right mini port. Assessment & Plan - Diagnosis (1) Acute renal injury due to sepsis Is this a current diagnosis for this admission?: Yes (2) Acute and chronic respiratory failure Qualifiers: Respiratory failure complication: unspecified whether with hypoxia or hypercapnia Qualified Code(s): J96.20 - Acute and chronic respiratory failure, unspecified whether with hypoxia or hypercapnia Is this a current diagnosis for this admission?: Yes (3) Hyponatremia Is this a current diagnosis for this admission?: Yes (4) Constipation Qualifiers: Constipation type: slow transit constipation Qualified Code(s): K59.01 - Slow transit constipation Is this a current diagnosis for this admission?: Yes (5) LFT elevation Is this a current diagnosis for this admission?: Yes (6) Precordial chest pain Is this a current diagnosis for this admission?: Yes (7) Paroxysmal atrial fibrillation Is this a current diagnosis for this admission?: Yes (8) Diabetes Qualifiers: Diabetes mellitus type: type 2 Diabetes mellitus complication status: without complication 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
[2016-10-08] MEDS ORDERED: BISACODYL 10 MG SUPP.RECT PR PRN (09:13)
[2016-10-08] MEDS ORDERED: PHARMACY COMMUNICATION ORDER MC NR (09:15)
[2016-10-08] MEDS ORDERED: BUDESONIDE NEB 0.5 MG/2 ML AMPUL NEB SCH (09:30)
[2016-10-08] MEDS ORDERED: PREDNISONE 5 MG TABLET NG SCH ×2 (10:00)
[2016-10-08] MEDS ORDERED: PREDNISONE 20 MG TABLET PO SCH (10:00)
[2016-10-08] MEDS ORDERED: ASPIRIN 81 MG TABLET, CHEWABLE NG SCH (10:00)
[2016-10-08] MEDS: ENOXAPARIN SODIUM INJ 30 MG/0.3 ML DISP.SYRIN SUBCUT SCH (10:59)
[2016-10-08] MEDS: LEVALBUTEROL HCL NEB 1.25 MG/3 ML AMPUL NEB PRN ×2 (11:13→21:32)
[2016-10-08] MEDS: INSULIN GLARGINE,HUM.REC.ANLOG 300 UNIT/3 ML INSULN.PEN SUBCUT SCH (11:15)
[2016-10-08 11:39] LABS: FREE T3 2.36 pg/mL (2.77-5.27)
[2016-10-08 11:52] LABS: THYROID STIMULATING HORMONE 0.62 uIU/mL (0.47-4.68)
[2016-10-08] MEDS ORDERED: PREDNISONE 10 MG TABLET NG SCH (12:00)
[2016-10-08] MEDS: LACTULOSE SYRUP 20 GM/30 ML UDCUP NG SCH ×2 (16:47→17:38)
[2016-10-08] MEDS: DILTIAZEM HCL 60 MG TABLET NG SCH ×2 (16:48→17:38)
[2016-10-08] MEDS ORDERED: LUBIPROSTONE 24 MCG CAPSULE PO SCH (18:00)
[2016-10-08] MEDS: INSULIN LISPRO 100 UNIT/ML 3 ML VIAL SUBCUT PRN (18:57)
--- NOTE | 2016-10-08 21:30 | PDOC PROGRESS REPORT ---
Subjective Progress Note for:: 10/08/16 Subjective:: c/o nausea and vomiting weak Physical Exam Vital Signs: Temp Pulse Resp BP Pulse Ox 97.8 F 97 18 150/85 H 97 10/08/16 07:28 10/08/16 07:44 10/08/16 07:44 10/08/16 07:28 10/08/16 07:44 Intake & Output 10/07/16 10/08/16 10/09/16 06:59 06:59 06:59 Intake Total 2418 1687 Output Total 1300 570 Balance 1118 1117 Weight 121 kg 123 kg General appearance: PRESENT: no acute distress, cooperative, disheveled, obese Head exam: PRESENT: atraumatic, normocephalic Eye exam: PRESENT: conjunctiva pale Mouth exam: PRESENT: dry mucosa, neck supple Teeth exam: PRESENT: poor dentation Neck exam: ABSENT: carotid bruit, JVD, lymphadenopathy, thyromegaly Respiratory exam: PRESENT: prolonged expiratory phas, rhonchi, symmetrical, unlabored, wheezes Cardiovascular exam: PRESENT: RRR, +S1, +S2 Pulses: PRESENT: normal radial pulses GI/Abdominal exam: PRESENT: distended, other - tympanitic Rectal exam: PRESENT: deferred Musculoskeletal exam: PRESENT: normal inspection Neurological exam: PRESENT: alert, awake Psychiatric exam: PRESENT: normal mood Skin exam: PRESENT: dry, warm Results Laboratory Results: 10/05/16 04:00 10/04/16 04:39 10/07/16 13:40 Urine Color YELLOW Urine Appearance SLIGHTLY-CLOUDY Urine pH 6.0 Ur Specific [place] 1.013 Urine Protein NEGATIVE Urine Glucose (UA) >=500 H Urine Ketones TRACE H Urine Blood SMALL H Urine Nitrite NEGATIVE Ur Leukocyte Esterase NEGATIVE Urine WBC (Auto) 2 Urine RBC (Auto) 1 10/01/16 10/01/16 10/01/16 05:50 05:50 21:15 Creatine Kinase 262 H CK-MB (CK-2) 5.95 H Troponin I 0.040 NT-Pro-B Natriuret Pep 814 Impressions: Abdomen Ultrasound 09/30/16 00:00 IMPRESSION: SEVERELY LIMITED ABDOMINAL ULTRASOUND. HEPATIC STEATOSIS. NO ADDITIONAL SIGNIFICANT ABNORMALITY NOTED. Acute Abdomen Series 09/30/16 01:58 IMPRESSION: Constipation. No findings to suggest obstruction. Chest X-Ray 10/04/16 06:00 IMPRESSION: Small right basilar opacity -effusion. Right mini port. Assessment & Plan - Diagnosis (1) Pneumonia Qualifiers: Pneumonia type: aspiration pneumonia Aspiration pneumonia type: unspecified Laterality: right Lung location: lower lobe of lung Qualified Code(s): J69.0 - Pneumonitis due to inhalation of food and vomit Is this a current diagnosis for this admission?: Yes (2) Acute and chronic respiratory failure ([id number]) Is this a current diagnosis for this admission?: Yes (3) Status asthmaticus Qualifiers: Asthma severity: severe persistent Qualified Code(s): J45.52 - Severe persistent asthma with status asthmaticus Is this a current diagnosis for this admission?: Yes (4) Body mass index (BMI) of 40.0-44.9 in adult Is this a current diagnosis for this admission?: Yes
[2016-10-08] MEDS ORDERED: MONTELUKAST SODIUM 10 MG TABLET NG SCH (22:00)
[2016-10-08] MEDS ORDERED: DIGOXIN 0.125 MG TABLET NG SCH (22:00)
[2016-10-09] MEDS: LEVALBUTEROL HCL NEB 1.25 MG/3 ML AMPUL NEB PRN ×3 (00:20→16:59)
[2016-10-09] MEDS: DILTIAZEM HCL 60 MG TABLET NG SCH ×4 (00:38→18:27)
[2016-10-09] MEDS: IPRATROPIUM/ALBUTEROL 0.5-2.5 MG/3 ML AMPUL NEB SCH ×4 (02:29→19:44)
[2016-10-09] MEDS: AMPICILLIN SODIUM/SULBACTAM NA 1.5 GM in NORMAL SALINE 50 ML IV SCH ×4 (03:19→21:49)
--- NOTE | 2016-10-09 06:48 | PDOC PROGRESS REPORT ---
Subjective Progress Note for:: 10/09/16 Subjective:: feels a little better with NG suction. Physical Exam Vital Signs: Temp Pulse Resp BP Pulse Ox 98.4 F 102 H 20 165/89 H 99 10/09/16 04:44 10/09/16 05:47 10/09/16 05:47 10/09/16 04:44 10/09/16 04:44 Intake & Output 10/07/16 10/08/16 10/09/16 07:59 07:59 07:59 Intake Total 2418 1687 200 Output Total 1300 570 600 Balance 1118 1117 -400 Weight 266 lb 12.149 oz 271 lb 2.697 oz 265 lb 10.512 oz General appearance: PRESENT: mild distress Respiratory exam: PRESENT: wheezes - mild. On bipap Cardiovascular exam: ABSENT: diastolic murmur, irregular rhythm, systolic murmur GI/Abdominal exam: PRESENT: diminished bowel sounds, distended. ABSENT: mass, organolmegaly, tenderness Extremities exam: ABSENT: pedal edema Neurological exam: PRESENT: oriented to situation Psychiatric exam: PRESENT: appropriate affect Results Laboratory Results: 10/05/16 04:00 10/04/16 04:39 10/08/16 10:20 TSH 0.62 Free T4 0.76 L Free T3 pg/mL 2.36 L 10/01/16 10/01/16 10/01/16 05:50 05:50 21:15 Creatine Kinase 262 H CK-MB (CK-2) 5.95 H Troponin I 0.040 NT-Pro-B Natriuret Pep 814 Impressions: Abdomen Ultrasound 09/30/16 00:00 IMPRESSION: SEVERELY LIMITED ABDOMINAL ULTRASOUND. HEPATIC STEATOSIS. NO ADDITIONAL SIGNIFICANT ABNORMALITY NOTED. Acute Abdomen Series 09/30/16 01:58 IMPRESSION: Constipation. No findings to suggest obstruction. Chest X-Ray 10/04/16 06:00 IMPRESSION: Small right basilar opacity -effusion. Right mini port. KUB X-Ray 10/08/16 09:11 IMPRESSION: Nasogastric tube tip and side port in the stomach. Persistent dilated loops of bowel in the upper abdomen Right medial basilar consolidation likely atelectasis. Pneumonia could not be excluded. Assessment & Plan - Diagnosis (1) Malnutrition Is this a current diagnosis for this admission?: Yes (2) Adynamic ileus Is this a current diagnosis for this admission?: YesPlan: NPO. Stopped PO meds. Solumedrol. Consider ct (3) Acute and chronic respiratory failure Qualifiers: Respiratory failure complication: unspecified whether with hypoxia or hypercapnia Qualified Code(s): J96.20 - Acute and chronic respiratory failure, unspecified whether with hypoxia or hypercapnia Is this a current diagnosis for this admission?: Yes (4) Acute renal injury due to sepsis Is this a current diagnosis for this admission?: Yes (5) Constipation Qualifiers: Constipation type: slow transit constipation Qualified Code(s): K59.01 - Slow transit constipation Is this a current diagnosis for this admission?: Yes (6) Hyponatremia Is this a current diagnosis for this admission?: Yes (7) LFT elevation Is this a current diagnosis for this admission?: Yes (8) Precordial chest pain Is this a current diagnosis for this admission?: Yes (9) Paroxysmal atrial fibrillation Is this a current diagnosis for this admission?: Yes (10) Diabetes Qualifiers: Diabetes mellitus type: type 2 Diabetes mellitus complication status: without complication Diabetes mellitus detasseler insulin use: with usp use Qualified Code(s): E11.9 - Type 2 diabetes mellitus without complications Is this a current diagnosis for this admission?: Yes (11) Pneumonia Qualifiers: Pneumonia type: aspiration pneumonia Aspiration pneumonia type: unspecified Laterality: right Lung location: lower lobe of lung Qualified Code(s): J69.0 - Pneumonitis due to inhalation of food and vomit Is this a current diagnosis for this admission?: Yes
[2016-10-09] MEDS: BUDESONIDE NEB 0.5 MG/2 ML AMPUL NEB SCH ×2 (07:58→19:44)
[2016-10-09] MEDS: LANSOPRAZOLE 30 MG TAB.RAP.DR NG SCH (08:06)
[2016-10-09] MEDS: METHYLPREDNISOLONE INJ 40 MG/1 ML SDV IV SCH (10:16)
[2016-10-09] MEDS: INSULIN GLARGINE,HUM.REC.ANLOG 300 UNIT/3 ML INSULN.PEN SUBCUT SCH (10:16)
[2016-10-09] MEDS: ENOXAPARIN SODIUM INJ 30 MG/0.3 ML DISP.SYRIN SUBCUT SCH (10:16)
--- NOTE | 2016-10-09 11:40 | PDOC PROGRESS REPORT ---
Subjective Progress Note for:: 10/09/16 Subjective:: remains distended Physical Exam Vital Signs: Temp Pulse Resp BP Pulse Ox 98.4 F 95 20 158/87 H 97 10/09/16 07:35 10/09/16 08:01 10/09/16 08:01 10/09/16 07:35 10/09/16 08:01 Intake & Output 10/08/16 10/09/16 10/10/16 06:59 06:59 06:59 Intake Total 1687 200 Output Total 570 600 Balance 1117 -400 Weight 123 kg 120.5 kg General appearance: PRESENT: disheveled, mild distress, obese Head exam: PRESENT: atraumatic, normocephalic Eye exam: PRESENT: conjunctiva pale, EOMI Mouth exam: PRESENT: dry mucosa, neck supple Neck exam: ABSENT: carotid bruit, JVD, lymphadenopathy, thyromegaly Respiratory exam: PRESENT: decreased breath sounds, prolonged expiratory phas, symmetrical, wheezes Cardiovascular exam: PRESENT: RRR, +S1 GI/Abdominal exam: PRESENT: other - tympanitic tight Rectal exam: PRESENT: deferred Gentrourinary exam: PRESENT: indwelling catheter Neurological exam: PRESENT: alert, awake Psychiatric exam: PRESENT: flat affect Skin exam: PRESENT: dry, warm Results Laboratory Results: 10/05/16 04:00 10/04/16 04:39 10/08/16 10:20 TSH 0.62 Free T4 0.76 L Free T3 pg/mL 2.36 L 10/07/16 13:40 Finnegan Catheter Urine Culture - Final NO GROWTH 2 DAYS 10/01/16 10/01/16 10/01/16 05:50 05:50 21:15 Creatine Kinase 262 H CK-MB (CK-2) 5.95 H Troponin I 0.040 NT-Pro-B Natriuret Pep 814 Impressions: Abdomen Ultrasound 09/30/16 00:00 IMPRESSION: SEVERELY LIMITED ABDOMINAL ULTRASOUND. HEPATIC STEATOSIS. NO ADDITIONAL SIGNIFICANT ABNORMALITY NOTED. Acute Abdomen Series 09/30/16 01:58 IMPRESSION: Constipation. No findings to suggest obstruction. KUB X-Ray 10/08/16 09:11 IMPRESSION: Nasogastric tube tip and side port in the stomach. Persistent dilated loops of bowel in the upper abdomen Right medial basilar consolidation likely atelectasis. Pneumonia could not be excluded. Chest X-Ray 10/09/16 06:00 IMPRESSION: No gross acute infiltrates Nasogastric tube tip and side port in the stomach Assessment & Plan - Diagnosis (1) Pneumonia Qualifiers: Pneumonia type: aspiration pneumonia Aspiration pneumonia type: unspecified Laterality: right Lung location: lower lobe of lung Qualified Code(s): J69.0 - Pneumonitis due to inhalation of food and vomit Is this a current diagnosis for this admission?: YesPlan: unchanged (2) Acute and chronic respiratory failure ([id number]) Is this a current diagnosis for this admission?: Yes (3) Status asthmaticus Qualifiers: Asthma severity: severe persistent Qualified Code(s): J45.52 - Severe persistent asthma with status asthmaticus Is this a current diagnosis for this admission?: Yes (4) Body mass index (BMI) of 40.0-44.9 in adult Is this a current diagnosis for this admission?: Yes (5) Adynamic ileus Is this a current diagnosis for this admission?: YesPlan: surgical evaluation
[2016-10-09] MEDS: INSULIN LISPRO 100 UNIT/ML 3 ML VIAL SUBCUT PRN ×2 (13:52→21:50)
[2016-10-09] MEDS ORDERED: 1/2 NORMAL SALINE 1,000 ML IV PRN (15:01)
[2016-10-09 15:37] LABS: HEMATOCRIT 30.3 % (37.9-51.0); HEMOGLOBIN 10.1 g/dL (13.5-17.0); MEAN CORPUSCULAR HEMOGLOBIN 27.5 pg (27.0-33.4); MEAN CORPUSCULAR HGB CONC 33.2 g/dL (32.0-36.0); MEAN CORPUSCULAR VOLUME 83 fl (80-97); RED BLOOD COUNT 3.65 10^6/uL (4.35-5.55); RED CELL DISTRIBUTION WIDTH 16.6 % (11.5-14.0); WHITE BLOOD COUNT 15.4 10^3/uL (4.0-10.5)
[2016-10-09 16:00] LABS: ALANINE AMINOTRANSFERASE 64 U/L (21-72); ALKALINE PHOSPHATASE 83 U/L (38-126); ANION GAP 11 (5-19); ASPARTATE AMINO TRANSFERASE 26 U/L (17-59); BILIRUBIN,DIRECT 0.5 mg/dL (0.0-0.4); BILIRUBIN,TOTAL 0.8 mg/dL (0.2-1.3); BLOOD UREA NITROGEN 36 mg/dL (7-20); CALCIUM 10.2 mg/dL (8.4-10.2); CARBON DIOXIDE 26 mmol/L (22-30); CHLORIDE 95 mmol/L (98-107); CREATININE RESULT 1.16 mg/dL (0.52-1.25); GLUCOSE 245 mg/dL (75-110); LIPASE 434.2 U/L (23-300); POTASSIUM 3.9 mmol/L (3.6-5.0); SODIUM 132.3 mmol/L (137-145); TOTAL PROTEIN 5.9 g/dL (6.3-8.2)
[2016-10-09 16:08] LABS: BAND NEUTROPHILS % (MANUAL) 3 % (3-5); BASOPHILS % (MANUAL) 0 % (0-2); EOSINOPHILS % (MANUAL) 0 % (0-6); LYMPHOCYTES % (MANUAL) 7 % (13-45); TOTAL CELLS COUNTED 100
[2016-10-09 16:12] LABS: ANISOCYTOSIS 1+; OVALOCYTES SLIGHT; POIKILOCYTOSIS SLIGHT; TOXIC VACUOLATION PRESENT
[2016-10-09 16:13] LABS: TARGET CELLS SLIGHT
--- NOTE | 2016-10-09 20:49 | Progress Note ---
Provider Note Provider Note: Patient seen in consultation. Patient in need for colonoscopy. Patient is DO NOT RESUSCITATE. His last electrocardiogram showed atrial fibrillation but no acute ST segment changes. I'm told by Dr. Desouza that patient will need to go in for colonoscopy and may have to have intravenous neostigmine. Patient does have severe COPD and asthma. Neostigmine has a potential to exercise with asthma. As regards cardiac action, it may cause bradycardia and heart blocks but patient seems to have good conduction through the AV node. The antidote would be IV atropine. I feel if the patient needs this procedure done, the surgeon/banking services officer can proceed with the proposed procedure. The risks will be somewhat on the high side because of patient's severe COPD. I'll be available to help in any way if such a need arise. As usual I thank Dr. Mendez very much for the consultation. A full report dictated is pending.
[2016-10-10] MEDS: DILTIAZEM HCL 60 MG TABLET NG SCH ×3 (00:11→18:00)
[2016-10-10] MEDS: IPRATROPIUM/ALBUTEROL 0.5-2.5 MG/3 ML AMPUL NEB SCH ×3 (01:38→20:17)
[2016-10-10] MEDS: AMPICILLIN SODIUM/SULBACTAM NA 1.5 GM in NORMAL SALINE 50 ML IV SCH ×2 (02:41→09:00)
[2016-10-10] MEDS: LANSOPRAZOLE 30 MG TAB.RAP.DR NG SCH (08:00)
[2016-10-10] MEDS: BUDESONIDE NEB 0.5 MG/2 ML AMPUL NEB SCH ×2 (08:00→20:17)
[2016-10-10] MEDS: INSULIN GLARGINE,HUM.REC.ANLOG 300 UNIT/3 ML INSULN.PEN SUBCUT SCH (10:00)
[2016-10-10] MEDS: METHYLPREDNISOLONE INJ 40 MG/1 ML SDV IV SCH (10:00)
[2016-10-10] MEDS: ENOXAPARIN SODIUM INJ 30 MG/0.3 ML DISP.SYRIN SUBCUT SCH (10:00)
--- NOTE | 2016-10-10 16:37 | PROGRESS NOTE E ---
Progress Note NAME: YURI FOSTER : 1945 AGE: 71Y DATE: 10/10/2016 ROOM: 309 SUBJECTIVE: Patient is sedated and is not able to ask any or answer any questions. OBJECTIVE: Patient's abdomen is distended. There are a few bowel sounds present. No peritoneal signs or tenderness noted. ASSESSMENT: COLONIC DISTENTION. He had a CT scan of the abdomen and pelvis yesterday, which showed contrast going through the small intestine and into the ascending and transverse colon. 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 PLAN: Gastroenterology will consult today to consider colonoscopy with decompression and possible rectal tube placement. DICTATING PHYSICIAN: ANGEL LA M.D. [id number] PHY#: [id number] ID: [id number] JOB#: [id number] ACCT: [id number] cc: >
--- NOTE | 2016-10-10 16:49 | PROGRESS NOTE E ---
Progress Note NAME: YURI FOSTER : 1945 AGE: 71Y DATE: 10/10/2016 ROOM: 309 SUBJECTIVE: Still has dyspnea and epigastric discomfort. OBJECTIVE: LUNGS: Mild wheeze. HEART: Regular today. No murmur. ABDOMEN: Distended and tympanitic. DIAGNOSTIC STUDIES: CT yesterday showed [place] syndrome with a pseudoobstruction in the midtransverse colon and loss of air fluid levels proximally. Dr. Moreno, the surgicalist, suggested a trial of Neostigmine injections or a colonoscopy with a tube decompression; and, as a last resort, a colostomy. Dr. Briceno saw the patient in consultation. He said that Neostigmine could aggravate the asthma and cause bradycardia, but the anecdote would be atropine. Dr. Sykes saw the patient in consultation and recommended a rectal tube at this time. The pseudoobstruction is causing vomiting and malnutrition. If this cannot be relieved, the prognosis is grim. DICTATING PHYSICIAN: MARY BETH NEELY M.D. [id number] Y#: [id number] ID: [id number] JOB#: [id number] ACCT: [id number] cc: >
--- NOTE | 2016-10-10 21:56 | PDOC CONSULTATION ---
Consultation Consult Date: 10/09/16 Attending physician:: MARY BETH NEELY Consult reason:: Preoperative evaluation History of Present Illness Admission Date/PCP: 09/30/16 07:30 MARY BETH NEELY MD Patient complains of: Dyspnea and mild abdominal discomfort History of Present Illness: YURI FOSTER JR is a 71 year old male who has recently been extubated following a prolonged severe respiratory problem. Currently wearing bilevel therapy. Patient has history of severe COPD/asthma, oxygen dependent. He is noted to have some abdominal discomfort and distention of the colon. I am told that he needs colonoscopy and possibly neostigmine therapy. I have been asked to clear him from cardiac standpoint for such a procedure. Patient has history of being treated for an pneumonia, skin infection and also noted to have a history of moderate pleural effusion. Past Medical History Cardiac Medical History: Reports: Atrial Fibrillation, Congestive Heart Failure - diastolic since 2016 echo., Myocardial Infarction - NSTEMI, Hyperlipidema, Hypertension Denies: Coronary Artery Disease Pulmonary Medical History: Reports: Asthma - severe persistant Denies: Bronchitis, Chronic Obstructive Pulmonary Disease (COPD), Pneumonia EENT Medical History: Reports: Nose - allergic rhinitis Neurological Medical History: Reports: Other - diabetic retinopathy Denies: Seizures Endocrine Medical History: Reports: Diabetes Mellitus Type 2, Other - IADH Renal/ Medical History: Reports: Other - wen Malignancy Medical History: Reports: Other - 2010 prostate GI Medical History: Reports: Gastroesophageal Reflux Disease - 1m esophageal ulcer. DrL ablated gastric & duodenal avm. 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 Past Surgical History Past Surgical History: Reports: Other - L cataract Social History Information Source: Relative Lives with: Family Smoking Status: Never Smoker Frequency of Alcohol Use: None Hx Recreational Drug Use: Yes Drugs: Cocaine, Marijuana Hx Prescription Drug Abuse: No - Advance Directive Resuscitation Status: Full Code Family History Family History: CAD, DM, Other - asthma brother Parental Family History Reviewed: Yes Children Family History Reviewed: Yes Sibling(s) Family History Reviewed.: Yes Medication/Allergy Home Medications: Albuterol Sulfate [Proair HFA] 2 puff IH Q4HP PRN 09/30/16 Budesonide [Pulmicort Neb 1 mg/2 mL Ampule] 2 ml NEB Q12 09/30/16 Clobetasol Propionate [Temovate 0.05% Cream 15 gm] 1 applic TOP BID 09/30/16 Diltiazem HCl [Cardizem Cd 240 mg Capsule.cr] 240 mg PO DAILY 09/30/16 Fluticasone Propionate [Flonase Nasal [place] 50 Mcg/[place] 16 gm] 2 spray NASL DAILY 09/30/16 Furosemide [Lasix] 40 mg PO BID 09/30/16 Ipratropium/Albuterol Sulfate [Duoneb 3 ml Ampul] 3 ml NEB RTQID 09/30/16 Magnesium Oxide [Mag-Ox 400 mg Tablet] 400 mg PO BID 09/30/16 Omeprazole 40 mg PO ACBRKFST 09/30/16 Prednisone [Deltasone 20 mg Tablet] 20 mg PO DAILY 09/30/16 Prednisone [Deltasone 5 mg Tablet] 15 mg PO Q2D 09/30/16 Spironolactone [Aldactone 25 mg Tablet] 25 mg PO DAILY 09/30/16 Tiotropium [place] [Spiriva Respimat] 2 puff IH DAILY 09/30/16 Allergies/Adverse Reactions: No Known Allergies Allergy (Verified 09/12/16 08:09) Review of Systems Review of Systems: Constitutional: PRESENT: Patient presented with chills, fever(s). ABSENT: headache(s), weight loss Nose, Mouth, and Throat: ABSENT: sore throat Cardiovascular: PRESENT: dyspnea on exertion. ABSENT: chest pain, orthropnea, sustained palpitations, syncope, near syncope. History of atrial fibrillation. Respiratory: PRESENT: cough, sputum production, respiratory distress. Gastrointestinal: PRESENT: constipation. Mild abdominal distention and pain ABSENT: Diarrhea, hematochezia, melena, vomiting Genitourinary: ABSENT: dysuria, hematuria Integumentary: PRESENT: wounds - L antecubital draining induration 3cm Orthopedic: No joint swelling. Psychiatric: No history of major psychosis, major depression. Hematologic: No definite history of hematologic/bleeding problems. Neurologic: No recent strokes or mini stroke. Physical Exam Vital Signs: Temp Pulse Resp BP Pulse Ox 98.6 F 99 22 H 168/84 H 95 10/09/16 11:46 10/09/16 17:01 10/09/16 17:01 10/09/16 11:46 10/09/16 17:01 Intake & Output 10/08/16 10/09/16 10/10/16 06:59 06:59 06:59 Intake Total 1687 200 350 Output Total 570 600 375 Balance 1117 -400 -25 Weight 123 kg 120.5 kg Exam: GENERAL: well-nourished and mild respiratory distress. Alert and oriented x3. Patient noted to be wearing bilevel mask. HEAD: Atraumatic, normocephalic. EYES: Pupils equal round and reactive to light, extraocular movements intact, sclera anicteric, conjunctiva are normal. ENT: TMs normal, nares patent, oropharynx clear without exudates. Moist mucous membranes. No oral ulcerations or bleeding gums noted NECK: supple without lymphadenopathy. Trachea is central. No cervical or axillary lymphadenopathy noted. Carotids are 2+, JVD WNL LUNGS: Respiration seems mildly distressed, no significant accessory muscle action noted. Patient wearing bilevel mask. Bilateral mild wheezing and coarse crackles are noted at basis. CHEST: Palpation of the chest wall shows no significant chest wall tenderness. No other significant abnormalities noted. 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 ABDOMEN: Soft, no significant tenderness appreciated, normoactive bowel sounds. No guarding, no rebound. No rigidity noted . No masses appreciated. Abdomen is however noted to be distended and somewhat firm. EXTREMITIES: Pedal pulses are 1-2+, no calf tenderness noted. No clubbing or cyanosis. 1+ pedal edema noted. Chronic dermatitis changes noted NEUROLOGICAL: Focused neurological exam showed no significant neurologic deficit. Normal speech, no focal weakness appreciated. PSYCH: Normal mood, normal affect. Judgment and insight within normal limits. SKIN: No significant ecchymosis, rash, positive left antecubital abscess. MUSCULOSKELETAL EXAM: No significant joint swelling noted. Results Laboratory Results: 10/09/16 15:30 10/09/16 15:30 10/09/16 10/09/16 15:30 15:30 WBC 15.4 H RBC 3.65 L Hgb 10.1 L Hct 30.3 L MCV 83 MCH 27.5 MCHC 33.2 RDW 16.6 H Plt Count 489 H Seg Neutrophils % Not Reportable Lymphocytes % Not Reportable Monocytes % Not Reportable Eosinophils % Not Reportable Basophils % Not Reportable Absolute Neutrophils Not Reportable Absolute Lymphocytes Not Reportable Absolute Monocytes Not Reportable Absolute Eosinophils Not Reportable Absolute Basophils Not Reportable Sodium 132.3 L Potassium 3.9 Chloride 95 L Carbon Dioxide 26 Anion Gap 11 BUN 36 H Creatinine 1.16 Est GFR ( Amer) > 60 Est GFR (Non-Af Amer) > 60 Glucose 245 H Calcium 10.2 Total Bilirubin 0.8 AST 26 ALT 64 Alkaline Phosphatase 83 Total Protein 5.9 L Albumin 3.0 L Lipase 434.2 H 10/07/16 13:40 Finnegan Catheter Urine Culture - Final NO GROWTH 2 DAYS 10/01/16 10/01/16 10/01/16 05:50 05:50 21:15 Creatine Kinase 262 H CK-MB (CK-2) 5.95 H Troponin I 0.040 NT-Pro-B Natriuret Pep 814 EKG Comments: Atrial fibrillation, low voltage QRS complex, no acute ST-T wave changes, rapid heart rate response. Impressions: Abdomen Ultrasound 09/30/16 00:00 IMPRESSION: SEVERELY LIMITED ABDOMINAL ULTRASOUND. HEPATIC STEATOSIS. NO ADDITIONAL SIGNIFICANT ABNORMALITY NOTED. Acute Abdomen Series 09/30/16 01:58 IMPRESSION: Constipation. No findings to suggest obstruction. KUB X-Ray 10/08/16 09:11 IMPRESSION: Nasogastric tube tip and side port in the stomach. Persistent dilated loops of bowel in the upper abdomen Right medial basilar consolidation likely atelectasis. Pneumonia could not be excluded. Abdomen/Pelvis CT 10/09/16 00:00 IMPRESSION: Oral contrast is seen throughout the gastrointestinal tract without a definite transition point. Findings are suggestive of ileus No free intraperitoneal air or fluid Right basilar airspace disease atelectasis versus pneumonia Chest X-Ray 10/09/16 06:00 IMPRESSION: No gross acute infiltrates Nasogastric tube tip and side port in the stomach Assessment & Plan - Diagnosis (1) Atrial fibrillation Qualifiers: Atrial fibrillation type: persistent Qualified Code(s): I48.1 - Persistent atrial fibrillation Is this a current diagnosis for this admission?: Yes (2) Acute and chronic respiratory failure ([id number]) Qualifiers: Respiratory failure complication: hypoxia and hypercapnia Qualified Code(s): J96.21 - Acute and chronic respiratory failure with hypoxia Is this a current diagnosis for this admission?: Yes (3) Adynamic ileus Is this a current diagnosis for this admission?: Yes (4) Constipation Qualifiers: Constipation type: slow transit constipation Qualified Code(s): K59.01 - Slow transit constipation Is this a current diagnosis for this admission?: Yes (5) Diabetes Qualifiers: Diabetes mellitus type: type 2 Diabetes mellitus complication status: without complication Diabetes mellitus exterminator helper termite insulin use: with snf use Qualified Code(s): E11.9 - Type 2 diabetes mellitus without complications Is this a current diagnosis for this admission?: Yes - Notes Notes: Atrial fibrillation: This seems persistent. Heart rate seems reasonable. Will repeat an EKG. This is not a contraindication for neostigmine therapy. Acute on chronic respiratory failure: Neostigmine can aggravate COPD and also asthma. Can increase bronchospasm. Patient may need debridement monitored to be monitored very closely and indicates neostigmine is used. Adynamic ileus and distention of colon plus constipation plus: Will leave management plans to sap portal consultant. Diabetes: Being expectantly managed by sales representative womens health. Preop cardiovascular assessment: Patient presents increased risk for any procedure because of significant comorbid diagnosis but not can be prohibitive range if such a procedure will help. We will be happy to provide cardiovascular coverage in case colonoscopy and neostigmine therapy is intended to be pursued. - Time Time Spent: 30 to 50 Minutes - CODE STATUS : was discussed, patient remains DO NOT RESUSCITATE. Surrogate decision-maker unchanged. Multiple medical problems were addressed. Medications reviewed and adjusted accordingly: Yes
[2016-10-10] MEDS: LEVALBUTEROL HCL NEB 1.25 MG/3 ML AMPUL NEB PRN (23:45)
[2016-10-11] MEDS: DILTIAZEM HCL 60 MG TABLET NG SCH ×4 (01:11→17:26)
[2016-10-11] MEDS: INSULIN LISPRO 100 UNIT/ML 3 ML VIAL SUBCUT PRN ×3 (01:12→16:04)
[2016-10-11] MEDS: IPRATROPIUM/ALBUTEROL 0.5-2.5 MG/3 ML AMPUL NEB SCH ×4 (01:35→19:51)
--- NOTE | 2016-10-11 07:29 | PDOC CONSULTATION ---
Consultation Consult Date: 10/10/16 Attending physician:: RUBIA XIE Consult reason:: Abdominal distension History of Present Illness Admission Date/PCP: 09/30/16 07:30 MARY BETH NEELY MD History of Present Illness: patient has had a prolonged hospitalization involving intubation and now on BIPAP patient known to my service had previous been on anticoagulation and had GI bleeding had several EGD's that showed AVM's that were ablated and then esophageal ulceration had his anticoagulation temporarily stopped had been started back and then presented with respiratory distress patient then extubated and now on BIPAP basically does not move in the bed his abdomen his distended ? 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 patient did have constipation and likely poor motility as an outpatient currently not a candidate to get scoped due to tenuous respiratory status patient likely has inadvertent intestinal gaseous distension due to BIPAP at this point compounded is the fact that patient does not get out of bed due to his various co-morbidities would recommend placement of rectal tube would get nursing to turn patient every 6 hours check to maximize electrolytes Past Medical History Cardiac Medical History: Reports: Atrial Fibrillation, Congestive Heart Failure - diastolic since 2016 echo., Myocardial Infarction - NSTEMI, Hyperlipidema, Hypertension Denies: Coronary Artery Disease Pulmonary Medical History: Reports: Asthma - severe persistant Denies: Bronchitis, Chronic Obstructive Pulmonary Disease (COPD), Pneumonia EENT Medical History: Reports: Nose - allergic rhinitis Neurological Medical History: Reports: Other - diabetic retinopathy Denies: Seizures Endocrine Medical History: Reports: Diabetes Mellitus Type 2, Other - IADH Renal/ Medical History: Reports: Other - wen Malignancy Medical History: Reports: Other - 2010 prostate GI Medical History: Reports: Gastroesophageal Reflux Disease - 1m esophageal ulcer. DrL ablated gastric & duodenal avm. 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 Past Surgical History Past Surgical History: Reports: Other - L cataract Social History Lives with: Family Smoking Status: Never Smoker Frequency of Alcohol Use: None Hx Recreational Drug Use: Yes Drugs: Cocaine, Marijuana Hx Prescription Drug Abuse: No - Advance Directive Resuscitation Status: Full Code Family History Family History: CAD, DM, Other - asthma brother Parental Family History Reviewed: Yes Children Family History Reviewed: Unknown Sibling(s) Family History Reviewed.: Unknown Medication/Allergy Home Medications: Albuterol Sulfate [Proair HFA] 2 puff IH Q4HP PRN 09/30/16 Budesonide [Pulmicort Neb 1 mg/2 mL Ampule] 2 ml NEB Q12 09/30/16 Clobetasol Propionate [Temovate 0.05% Cream 15 gm] 1 applic TOP BID 09/30/16 Diltiazem HCl [Cardizem Cd 240 mg Capsule.cr] 240 mg PO DAILY 09/30/16 Fluticasone Propionate [Flonase Nasal [place] 50 Mcg/[place] 16 gm] 2 spray NASL DAILY 09/30/16 Furosemide [Lasix] 40 mg PO BID 09/30/16 Ipratropium/Albuterol Sulfate [Duoneb 3 ml Ampul] 3 ml NEB RTQID 09/30/16 Magnesium Oxide [Mag-Ox 400 mg Tablet] 400 mg PO BID 09/30/16 Omeprazole 40 mg PO ACBRKFST 09/30/16 Prednisone [Deltasone 20 mg Tablet] 20 mg PO DAILY 09/30/16 Prednisone [Deltasone 5 mg Tablet] 15 mg PO Q2D 09/30/16 Spironolactone [Aldactone 25 mg Tablet] 25 mg PO DAILY 09/30/16 Tiotropium Armstrong [Spiriva Respimat] 2 puff IH DAILY 09/30/16 Allergies/Adverse Reactions: No Known Allergies Allergy (Verified 09/12/16 08:09) Review of Systems Constitutional: ABSENT: fever(s), headache(s), night sweats, weakness Eyes: ABSENT: visual disturbances Ears: ABSENT: hearing changes Nose, Mouth, and Throat: ABSENT: mouth pain Cardiovascular: PRESENT: orthropnea. ABSENT: chest pain Respiratory: PRESENT: dyspnea. ABSENT: hemoptysis Gastrointestinal: ABSENT: diarrhea, melena, nausea, vomiting Genitourinary: ABSENT: dysuria, hematuria Musculoskeletal: ABSENT: joint swelling Integumentary: ABSENT: pruritus Neurological: PRESENT: lack of coordination. ABSENT: syncope, tremor(s), vertigo Endocrine: ABSENT: polydipsia, polyphagia, polyuria Hematologic/Lymphatic: ABSENT: easy bruising Physical Exam Vital Signs: Temp Pulse Resp BP Pulse Ox 98.4 F 86 22 H 141/81 H 100 10/11/16 04:04 10/11/16 04:04 10/11/16 04:04 10/11/16 04:04 10/11/16 04:04 Intake & Output 10/10/16 10/11/16 10/12/16 06:59 06:59 06:59 Intake Total 1550 0 Output Total 975 405 Balance 575 -405 Weight 120.1 kg 117.8 kg General appearance: PRESENT: morbidly obese Head exam: PRESENT: atraumatic, normocephalic Eye exam: PRESENT: EOMI, PERRLA. ABSENT: nystagmus Mouth exam: PRESENT: neck supple Neck exam: PRESENT: meningismus, tenderness, thyromegaly Respiratory exam: PRESENT: crackles, symmetrical, tachypnea. ABSENT: stridor Cardiovascular exam: PRESENT: RRR, +S1, +S2 GI/Abdominal exam: PRESENT: distended, firm Extremities exam: PRESENT: pedal edema Neurological exam: PRESENT: awake, CN II-XII grossly intact Psychiatric exam: PRESENT: appropriate affect Skin exam: PRESENT: normal color. ABSENT: mottled, pallor, petechiae Results Laboratory Results: 10/09/16 15:30 10/09/16 15:30 10/01/16 10/01/16 10/01/16 05:50 05:50 21:15 Creatine Kinase 262 H CK-MB (CK-2) 5.95 H Troponin I 0.040 NT-Pro-B Natriuret Pep 814 Impressions: Abdomen Ultrasound 09/30/16 00:00 IMPRESSION: SEVERELY LIMITED ABDOMINAL ULTRASOUND. HEPATIC STEATOSIS. NO ADDITIONAL SIGNIFICANT ABNORMALITY NOTED. Acute Abdomen Series 09/30/16 01:58 IMPRESSION: Constipation. No findings to suggest obstruction. KUB X-Ray 10/08/16 09:11 IMPRESSION: Nasogastric tube tip and side port in the stomach. Persistent dilated loops of bowel in the upper abdomen Right medial basilar consolidation likely atelectasis. Pneumonia could not be excluded. Abdomen/Pelvis CT 10/09/16 00:00 IMPRESSION: Oral contrast is seen throughout the gastrointestinal tract without a definite transition point. Findings are suggestive of ileus No free intraperitoneal air or fluid Right basilar airspace disease atelectasis versus pneumonia Chest X-Ray 10/09/16 06:00 IMPRESSION: No gross acute infiltrates Nasogastric tube tip and side port in the stomach Assessment & Plan - Diagnosis (1) Adynamic ileus Is this a current diagnosis for this admission?: YesPlan: likely due to prolonged hospitalization previously intubated and now on BIPAP inadvertent intestinal distension due to a combination of factors involving iatrogenic insufflation due to BIPAP lack of motility compounds that would place rectal tube for now when patient can take oral medication, perhaps a single does of Reglan may be useful however the risk of tardive dyskinesia needs to be considered use of erythromycin is also a possibility will continue to follow - Time Time Spent: 50 to 70 Minutes
--- NOTE | 2016-10-11 07:48 | PDOC PROGRESS REPORT ---
Subjective Progress Note for:: 10/11/16 Subjective:: bipap few hours last night. Does not like it. Physical Exam Vital Signs: Temp Pulse Resp BP Pulse Ox 98.4 F 86 22 H 141/81 H 100 10/11/16 04:04 10/11/16 04:04 10/11/16 04:04 10/11/16 04:04 10/11/16 04:04 Intake & Output 10/09/16 10/10/16 10/11/16 07:59 07:59 07:59 Intake Total 200 1550 0 Output Total 600 975 405 Balance -400 575 -405 Weight 265 lb 10.512 oz 264 lb 12.403 oz 259 lb 11.272 oz General appearance: PRESENT: no acute distress Respiratory exam: PRESENT: clear to auscultation ronni Cardiovascular exam: ABSENT: diastolic murmur, irregular rhythm, systolic murmur GI/Abdominal exam: PRESENT: distended, hypoactive bowel sounds. ABSENT: tenderness Extremities exam: ABSENT: pedal edema Results Laboratory Results: 10/09/16 15:30 10/09/16 15:30 10/01/16 10/01/16 10/01/16 05:50 05:50 21:15 Creatine Kinase 262 H CK-MB (CK-2) 5.95 H Troponin I 0.040 NT-Pro-B Natriuret Pep 814 Impressions: Abdomen Ultrasound 09/30/16 00:00 IMPRESSION: SEVERELY LIMITED ABDOMINAL ULTRASOUND. HEPATIC STEATOSIS. NO ADDITIONAL SIGNIFICANT ABNORMALITY NOTED. Acute Abdomen Series 09/30/16 01:58 IMPRESSION: Constipation. No findings to suggest obstruction. KUB X-Ray 10/08/16 09:11 IMPRESSION: Nasogastric tube tip and side port in the stomach. Persistent dilated loops of bowel in the upper abdomen Right medial basilar consolidation likely atelectasis. Pneumonia could not be excluded. Abdomen/Pelvis CT 10/09/16 00:00 IMPRESSION: Oral contrast is seen throughout the gastrointestinal tract without a definite transition point. Findings are suggestive of ileus No free intraperitoneal air or fluid Right basilar airspace disease atelectasis versus pneumonia Chest X-Ray 10/09/16 06:00 IMPRESSION: No gross acute infiltrates Nasogastric tube tip and side port in the stomach Assessment & Plan - Diagnosis (1) Malnutrition Is this a current diagnosis for this admission?: Yes (2) Adynamic ileus Is this a current diagnosis for this admission?: YesPlan: Dr Sykes suggested rectal tube. Finnegan without tip did not decompress. Will try Zazzy & metoclopramide next. Consider erythromycin or neostigmine. (3) Acute and chronic respiratory failure Qualifiers: Respiratory failure complication: unspecified whether with hypoxia or hypercapnia Qualified Code(s): J96.20 - Acute and chronic respiratory failure, unspecified whether with hypoxia or hypercapnia Is this a current diagnosis for this admission?: Yes (4) Acute renal injury due to sepsis Is this a current diagnosis for this admission?: Yes (5) Constipation Qualifiers: Constipation type: slow transit constipation Qualified Code(s): K59.01 - Slow transit constipation Is this a current diagnosis for this admission?: Yes (6) Hyponatremia Is this a current diagnosis for this admission?: Yes (7) LFT elevation Is this a current diagnosis for this admission?: Yes (8) Precordial chest pain Is this a current diagnosis for this admission?: Yes (9) Paroxysmal atrial fibrillation Is this a current diagnosis for this admission?: Yes (10) Diabetes Qualifiers: Diabetes mellitus type: type 2 Diabetes mellitus complication status: without complication Diabetes mellitus 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
[2016-10-11] MEDS: LANSOPRAZOLE 30 MG TAB.RAP.DR NG SCH (08:21)
[2016-10-11] MEDS: AMPICILLIN SODIUM/SULBACTAM NA 1.5 GM in NORMAL SALINE 50 ML IV SCH ×3 (08:21→21:24)
[2016-10-11] MEDS: BUDESONIDE NEB 0.5 MG/2 ML AMPUL NEB SCH ×2 (08:50→19:51)
[2016-10-11] MEDS: INSULIN GLARGINE,HUM.REC.ANLOG 300 UNIT/3 ML INSULN.PEN SUBCUT SCH (10:13)
[2016-10-11] MEDS: ENOXAPARIN SODIUM INJ 30 MG/0.3 ML DISP.SYRIN SUBCUT SCH (10:13)
[2016-10-11] MEDS: METHYLPREDNISOLONE INJ 40 MG/1 ML SDV IV SCH (10:14)
[2016-10-11] MEDS: DEXTROSE 5%-NORMAL SALINE 1,000 ML IV PRN (10:17)
--- NOTE | 2016-10-11 10:38 | EKG REPORT ---
SEVERITY:- ABNORMAL ECG - ATRIAL FIBRILLATION LEFT AXIS DEVIATION NONSPECIFIC T ABNORMALITIES, ANT-LAT LEADS : Confirmed by: Bessie Arvizu MD 11-Oct-2016 10:37:48
--- NOTE | 2016-10-11 11:14 | PDOC PROGRESS REPORT ---
Subjective Progress Note for:: 10/10/16 Subjective:: remains distendedAnd uncomfortable Physical Exam Vital Signs: Temp Pulse Resp BP Pulse Ox 97.9 F 84 19 155/86 H 99 10/11/16 07:57 10/11/16 07:57 10/11/16 07:57 10/11/16 07:57 10/11/16 07:57 Intake & Output 10/10/16 10/11/16 10/12/16 06:59 06:59 06:59 Intake Total 1550 600 Output Total 975 405 Balance 575 195 Weight 120.1 kg 117.8 kg General appearance: PRESENT: disheveled, mild distress, obese, well-developed Head exam: PRESENT: atraumatic, normocephalic Eye exam: PRESENT: conjunctiva pale Mouth exam: PRESENT: dry mucosa, neck supple Respiratory exam: PRESENT: decreased breath sounds, prolonged expiratory phas, rhonchi, symmetrical, unlabored, wheezes Cardiovascular exam: PRESENT: RRR, +S1, +S2 Pulses: PRESENT: normal radial pulses GI/Abdominal exam: PRESENT: normal bowel sounds, soft. ABSENT: distended, guarding, mass, organolmegaly, rebound, tenderness Rectal exam: PRESENT: deferred Gentrourinary exam: PRESENT: indwelling catheter Musculoskeletal exam: PRESENT: normal inspection Neurological exam: PRESENT: alert, awake Psychiatric exam: PRESENT: normal mood Skin exam: PRESENT: dry, warm Results Laboratory Results: 10/09/16 15:30 10/09/16 15:30 10/01/16 10/01/16 10/01/16 05:50 05:50 21:15 Creatine Kinase 262 H CK-MB (CK-2) 5.95 H Troponin I 0.040 NT-Pro-B Natriuret Pep 814 Impressions: Abdomen Ultrasound 09/30/16 00:00 IMPRESSION: SEVERELY LIMITED ABDOMINAL ULTRASOUND. HEPATIC STEATOSIS. NO ADDITIONAL SIGNIFICANT ABNORMALITY NOTED. Acute Abdomen Series 09/30/16 01:58 IMPRESSION: Constipation. No findings to suggest obstruction. KUB X-Ray 10/08/16 09:11 IMPRESSION: Nasogastric tube tip and side port in the stomach. Persistent dilated loops of bowel in the upper abdomen Right medial basilar consolidation likely atelectasis. Pneumonia could not be excluded. Abdomen/Pelvis CT 10/09/16 00:00 IMPRESSION: Oral contrast is seen throughout the gastrointestinal tract without a definite transition point. Findings are suggestive of ileus No free intraperitoneal air or fluid Right basilar airspace disease atelectasis versus pneumonia Chest X-Ray 10/09/16 06:00 IMPRESSION: No gross acute infiltrates Nasogastric tube tip and side port in the stomach Assessment & Plan - Diagnosis (1) Pneumonia Qualifiers: Pneumonia type: aspiration pneumonia Aspiration pneumonia type: unspecified Laterality: right Lung location: lower lobe of lung Qualified Code(s): J69.0 - Pneumonitis due to inhalation of food and vomit Is this a current diagnosis for this admission?: Yes (2) Acute and chronic respiratory failure ([id number]) Qualifiers: Respiratory failure complication: hypoxia and hypercapnia Qualified Code(s): J96.21 - Acute and chronic respiratory failure with hypoxia Is this a current diagnosis for this admission?: Yes (3) Status asthmaticus Qualifiers: Asthma severity: severe persistent Qualified Code(s): J45.52 - Severe persistent asthma with status asthmaticus Is this a current diagnosis for this admission?: Yes (4) Body mass index (BMI) of 40.0-44.9 in adult Is this a current diagnosis for this admission?: Yes (5) Adynamic ileus Is this a current diagnosis for this admission?: Yes
--- NOTE | 2016-10-11 11:16 | PDOC PROGRESS REPORT ---
Subjective Progress Note for:: 10/11/16 Physical Exam Vital Signs: Temp Pulse Resp BP Pulse Ox 97.9 F 84 19 155/86 H 99 10/11/16 07:57 10/11/16 07:57 10/11/16 07:57 10/11/16 07:57 10/11/16 07:57 Intake & Output 10/10/16 10/11/16 10/12/16 06:59 06:59 06:59 Intake Total 1550 600 Output Total 975 405 Balance 575 195 Weight 120.1 kg 117.8 kg General appearance: PRESENT: no acute distress, disheveled, obese Head exam: PRESENT: atraumatic, normocephalic Eye exam: PRESENT: conjunctiva pale, EOMI Mouth exam: PRESENT: dry mucosa, neck supple Neck exam: ABSENT: carotid bruit, JVD, lymphadenopathy, thyromegaly Respiratory exam: PRESENT: decreased breath sounds, prolonged expiratory phas, unlabored, wheezes Cardiovascular exam: PRESENT: RRR, +S1, +S2 Pulses: PRESENT: normal radial pulses GI/Abdominal exam: PRESENT: normal bowel sounds, soft, other - Distended and tympanitic. ABSENT: distended, guarding, mass, organolmegaly, rebound, tenderness Rectal exam: PRESENT: deferred Musculoskeletal exam: PRESENT: normal inspection Neurological exam: PRESENT: awake Skin exam: PRESENT: dry, warm Results Laboratory Results: 10/09/16 15:30 10/09/16 15:30 10/01/16 10/01/16 10/01/16 05:50 05:50 21:15 Creatine Kinase 262 H CK-MB (CK-2) 5.95 H Troponin I 0.040 NT-Pro-B Natriuret Pep 814 Impressions: Abdomen Ultrasound 09/30/16 00:00 IMPRESSION: SEVERELY LIMITED ABDOMINAL ULTRASOUND. HEPATIC STEATOSIS. NO ADDITIONAL SIGNIFICANT ABNORMALITY NOTED. Acute Abdomen Series 09/30/16 01:58 IMPRESSION: Constipation. No findings to suggest obstruction. KUB X-Ray 10/08/16 09:11 IMPRESSION: Nasogastric tube tip and side port in the stomach. Persistent dilated loops of bowel in the upper abdomen Right medial basilar consolidation likely atelectasis. Pneumonia could not be excluded. Abdomen/Pelvis CT 10/09/16 00:00 IMPRESSION: Oral contrast is seen throughout the gastrointestinal tract without a definite transition point. Findings are suggestive of ileus No free intraperitoneal air or fluid Right basilar airspace disease atelectasis versus pneumonia Chest X-Ray 10/09/16 06:00 IMPRESSION: No gross acute infiltrates Nasogastric tube tip and side port in the stomach Assessment & Plan - Diagnosis (1) Pneumonia Qualifiers: Pneumonia type: aspiration pneumonia Aspiration pneumonia type: unspecified Laterality: right Lung location: lower lobe of lung Qualified Code(s): J69.0 - Pneumonitis due to inhalation of food and vomit Is this a current diagnosis for this admission?: Yes (2) Acute and chronic respiratory failure ([id number]) Qualifiers: Respiratory failure complication: hypoxia and hypercapnia Qualified Code(s): J96.21 - Acute and chronic respiratory failure with hypoxia Is this a current diagnosis for this admission?: Yes (3) Status asthmaticus Qualifiers: Asthma severity: severe persistent Qualified Code(s): J45.52 - Severe persistent asthma with status asthmaticus Is this a current diagnosis for this admission?: Yes (4) Body mass index (BMI) of 40.0-44.9 in adult Is this a current diagnosis for this admission?: Yes (5) Adynamic ileus Is this a current diagnosis for this admission?: Yes
[2016-10-11] MEDS: METOCLOPRAMIDE HCL INJ/PF 10 MG/2 ML SDV IV SCH ×2 (11:51→17:27)
--- NOTE | 2016-10-11 12:41 | PDOC PROGRESS REPORT ---
Subjective Progress Note for:: 10/11/16 Subjective:: abdomen feels better. less distended. bm's via rectal tube Physical Exam Vital Signs: Temp Pulse Resp BP Pulse Ox 97.9 F 84 19 155/86 H 99 10/11/16 07:57 10/11/16 07:57 10/11/16 07:57 10/11/16 07:57 10/11/16 07:57 Intake & Output 10/10/16 10/11/16 10/12/16 06:59 06:59 06:59 Intake Total 1550 600 Output Total 975 405 Balance 575 195 Weight 120.1 kg 117.8 kg General appearance: PRESENT: no acute distress, cooperative GI/Abdominal exam: PRESENT: other - soft, distended, minimal tenderness, no periotneal signs. Results Laboratory Results: 10/09/16 15:30 10/09/16 15:30 10/01/16 10/01/16 10/01/16 05:50 05:50 21:15 Creatine Kinase 262 H CK-MB (CK-2) 5.95 H Troponin I 0.040 NT-Pro-B Natriuret Pep 814 Impressions: Abdomen Ultrasound 09/30/16 00:00 IMPRESSION: SEVERELY LIMITED ABDOMINAL ULTRASOUND. HEPATIC STEATOSIS. NO ADDITIONAL SIGNIFICANT ABNORMALITY NOTED. Acute Abdomen Series 09/30/16 01:58 IMPRESSION: Constipation. No findings to suggest obstruction. KUB X-Ray 10/08/16 09:11 IMPRESSION: Nasogastric tube tip and side port in the stomach. Persistent dilated loops of bowel in the upper abdomen Right medial basilar consolidation likely atelectasis. Pneumonia could not be excluded. Abdomen/Pelvis CT 10/09/16 00:00 IMPRESSION: Oral contrast is seen throughout the gastrointestinal tract without a definite transition point. Findings are suggestive of ileus No free intraperitoneal air or fluid Right basilar airspace disease atelectasis versus pneumonia Chest X-Ray 10/09/16 06:00 IMPRESSION: No gross acute infiltrates Nasogastric tube tip and side port in the stomach Assessment & Plan - Diagnosis (1) Constipation Qualifiers: Constipation type: slow transit constipation Qualified Code(s): K59.01 - Slow transit constipation Is this a current diagnosis for this admission?: YesPlan: improved with rectal tube and ng. no role for surgical intervention at this time. defer to GI for management. will sign off. call us for problems.
--- NOTE | 2016-10-11 13:52 | PDOC PROGRESS REPORT ---
Subjective Progress Note for:: 10/11/16 Subjective:: Patient had both rectal tube as well as NG tube placed. His abdomen appears to be much softer. Surgery has signed off. Patient does have underlying constipation. He has had a prolonged hospitalization he is currently on BiPAP. No rectal bleeding. Previous AVMs were cauterized. Esophageal ulcers have healed. Physical Exam Vital Signs: Temp Pulse Resp BP Pulse Ox 97.6 F 159 H 19 154/78 H 99 10/11/16 11:46 10/11/16 11:46 10/11/16 11:46 10/11/16 11:46 10/11/16 11:46 Intake & Output 10/10/16 10/11/16 10/12/16 06:59 06:59 06:59 Intake Total 1550 600 0 Output Total 975 405 400 Balance 575 195 -400 Weight 120.1 kg 117.8 kg General appearance: PRESENT: no acute distress, morbidly obese Head exam: PRESENT: atraumatic, normocephalic Eye exam: PRESENT: EOMI, PERRLA. ABSENT: nystagmus, periorbital swelling, scleral icterus Mouth exam: PRESENT: moist Throat exam: ABSENT: tonsillar exudate, tonsillogmegaly Neck exam: ABSENT: meningismus, tenderness, thyromegaly Respiratory exam: PRESENT: accessory muscle use, tachypnea. ABSENT: chest wall tenderness Cardiovascular exam: PRESENT: RRR, +S1, +S2 GI/Abdominal exam: PRESENT: distended, firm. ABSENT: rebound Extremities exam: ABSENT: joint swelling Musculoskeletal exam: PRESENT: full ROM Neurological exam: PRESENT: oriented to time, oriented to situation, reflexes normal, CN II-XII grossly intact Psychiatric exam: PRESENT: appropriate affect Skin exam: PRESENT: normal color. ABSENT: mottled, pallor, petechiae, urticaria , vesicles Results Laboratory Results: 10/09/16 15:30 10/09/16 15:30 10/01/16 10/01/16 10/01/16 05:50 05:50 21:15 Creatine Kinase 262 H CK-MB (CK-2) 5.95 H Troponin I 0.040 NT-Pro-B Natriuret Pep 814 Impressions: Abdomen Ultrasound 09/30/16 00:00 IMPRESSION: SEVERELY LIMITED ABDOMINAL ULTRASOUND. HEPATIC STEATOSIS. NO ADDITIONAL SIGNIFICANT ABNORMALITY NOTED. Acute Abdomen Series 09/30/16 01:58 IMPRESSION: Constipation. No findings to suggest obstruction. KUB X-Ray 10/08/16 09:11 IMPRESSION: Nasogastric tube tip and side port in the stomach. Persistent dilated loops of bowel in the upper abdomen Right medial basilar consolidation likely atelectasis. Pneumonia could not be excluded. Abdomen/Pelvis CT 10/09/16 00:00 IMPRESSION: Oral contrast is seen throughout the gastrointestinal tract without a definite transition point. Findings are suggestive of ileus No free intraperitoneal air or fluid Right basilar airspace disease atelectasis versus pneumonia Chest X-Ray 10/09/16 06:00 IMPRESSION: No gross acute infiltrates Nasogastric tube tip and side port in the stomach Assessment & Plan - Diagnosis (1) Adynamic ileus Is this a current diagnosis for this admission?: YesPlan: continue with rectal and NG tube for now serial abdominal films if needed no role for colonoscopy for now will need to mobilize patient at some point physical therapy agree that this is non surgical issue with multifactorial factors at work Hgb has been stable - Time Time Spent with patient: 15-24 minutes
--- NOTE | 2016-10-11 21:06 | PDOC PROGRESS REPORT ---
Subjective Progress Note for:: 10/11/16 Subjective:: Patient condition essentially the same. Patient today noted to be on nasal cannula. He seems to be tolerating this well. Lungs sounded better today. Hopefully he will be able to tolerate beta lor for rate control. Beta blockers will be preferred agents as cardiazem can cause adynamic ileus. We will discuss this option with binder operator and restaurant area manager. Physical Exam Vital Signs: Temp Pulse Resp BP Pulse Ox 98.3 F 63 22 H 166/76 H 97 10/11/16 20:51 10/11/16 20:51 10/11/16 20:51 10/11/16 20:51 10/11/16 20:51 Intake & Output 10/10/16 10/11/16 10/12/16 06:59 06:59 06:59 Intake Total 1550 600 600 Output Total 975 405 750 Balance 575 195 -150 Weight 120.1 kg 117.8 kg Exam: GENERAL: well-nourished and in mild respiratory distress. Alert and oriented x 2, patient noted to be intermittently confused. HEAD: Atraumatic, normocephalic. EYES: Pupils equal round and reactive to light, extraocular movements intact, sclera anicteric, conjunctiva are normal. ENT: TMs normal, nares patent, oropharynx clear without exudates. Moist mucous membranes. No oral ulcerations or bleeding gums noted NECK: supple without lymphadenopathy. Trachea is central. No cervical or axillary lymphadenopathy noted. Carotids are 2+, JVD WNL LUNGS: Respiration seems mildly labored, bibasilar fine crackles and bilateral mild wheezes rales or rhonchi noted. No significant dullness noted on percussion. CHEST: Palpation of the chest wall shows no significant chest wall tenderness. No other significant abnormalities noted. 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 ABDOMEN: Distended and firm, no significant tenderness appreciated, diminished bowel sounds. No guarding, no rebound. No rigidity noted . No masses appreciated. EXTREMITIES: Pedal pulses are 1-2+, no calf tenderness noted. No clubbing or cyanosis. 1+ pedal edema noted. Dermatitis finding noted bilaterally NEUROLOGICAL: Focused neurological exam showed no significant neurologic deficit. Normal speech, no focal weakness appreciated. PSYCH: Normal mood, normal affect. Judgment and insight within normal limits. SKIN: No significant ecchymosis, or signs of pruritus noted. MUSCULOSKELETAL EXAM: No significant joint swelling noted. Results Laboratory Results: 10/09/16 15:30 10/09/16 15:30 10/01/16 10/01/16 10/01/16 05:50 05:50 21:15 Creatine Kinase 262 H CK-MB (CK-2) 5.95 H Troponin I 0.040 NT-Pro-B Natriuret Pep 814 Impressions: Abdomen Ultrasound 09/30/16 00:00 IMPRESSION: SEVERELY LIMITED ABDOMINAL ULTRASOUND. HEPATIC STEATOSIS. NO ADDITIONAL SIGNIFICANT ABNORMALITY NOTED. Acute Abdomen Series 09/30/16 01:58 IMPRESSION: Constipation. No findings to suggest obstruction. KUB X-Ray 10/08/16 09:11 IMPRESSION: Nasogastric tube tip and side port in the stomach. Persistent dilated loops of bowel in the upper abdomen Right medial basilar consolidation likely atelectasis. Pneumonia could not be excluded. Abdomen/Pelvis CT 10/09/16 00:00 IMPRESSION: Oral contrast is seen throughout the gastrointestinal tract without a definite transition point. Findings are suggestive of ileus No free intraperitoneal air or fluid Right basilar airspace disease atelectasis versus pneumonia Chest X-Ray 10/09/16 06:00 IMPRESSION: No gross acute infiltrates Nasogastric tube tip and side port in the stomach Assessment & Plan - Diagnosis (1) Atrial fibrillation Qualifiers: Atrial fibrillation type: persistent Qualified Code(s): I48.1 - Persistent atrial fibrillation Is this a current diagnosis for this admission?: Yes (2) Acute and chronic respiratory failure ([id number]) Qualifiers: Respiratory failure complication: hypoxia and hypercapnia Qualified Code(s): J96.21 - Acute and chronic respiratory failure with hypoxia Is this a current diagnosis for this admission?: Yes (3) Adynamic ileus Is this a current diagnosis for this admission?: Yes (4) Constipation Qualifiers: Constipation type: slow transit constipation Qualified Code(s): K59.01 - Slow transit constipation Is this a current diagnosis for this admission?: Yes (5) Diabetes Qualifiers: Diabetes mellitus type: type 2 Diabetes mellitus complication status: without complication Diabetes mellitus nursing home insulin use: with termite treater use Qualified Code(s): E11.9 - Type 2 diabetes mellitus without complications Is this a current diagnosis for this admission?: Yes - Notes Notes: Adynamic ileus: Beta blockers will be preferred agents as cardiazem can cause adynamic ileus. We will discuss this option with binder operator and restaurant area manager. Telemetry strips shows that patient actually in sinus rhythm today. 12-lead EKG reviewed also shows sinus rhythm. Patient continues to have respiratory insufficiency but stable. Will discuss switching to beta blockers with binder operator. Diabetes is well controlled. - Time Time with patient: 15-25 minutes Medications reviewed and adjusted accordingly: Yes
[2016-10-12] MEDS: DILTIAZEM HCL 60 MG TABLET NG SCH ×2 (02:04→06:47)
[2016-10-12] MEDS: METOCLOPRAMIDE HCL INJ/PF 10 MG/2 ML SDV IV SCH ×5 (02:05→23:16)
[2016-10-12] MEDS: AMPICILLIN SODIUM/SULBACTAM NA 1.5 GM in NORMAL SALINE 50 ML IV SCH ×4 (02:11→20:09)
[2016-10-12] MEDS: IPRATROPIUM/ALBUTEROL 0.5-2.5 MG/3 ML AMPUL NEB SCH ×4 (02:19→19:43)
--- NOTE | 2016-10-12 07:54 | PDOC PROGRESS REPORT ---
Subjective Progress Note for:: 10/12/16 Subjective:: abdomen less full. Dyspnea stable. It did not change much when metoprolol switched to diltiazem before last admission. Physical Exam Vital Signs: Temp Pulse Resp BP Pulse Ox 97.3 F 87 22 H 153/77 H 100 10/12/16 03:58 10/12/16 03:58 10/12/16 03:58 10/12/16 03:58 10/12/16 03:58 Intake & Output 10/10/16 10/11/16 10/12/16 07:59 07:59 07:59 Intake Total 4365 805 2629 Output Total 685 540 5122 Balance 575 195 -623 Weight 264 lb 12.403 oz 259 lb 11.272 oz 257 lb 11.526 oz General appearance: PRESENT: no acute distress Respiratory exam: PRESENT: clear to auscultation ronni Cardiovascular exam: PRESENT: irregular rhythm. ABSENT: diastolic murmur, systolic murmur GI/Abdominal exam: PRESENT: distended - but less than yesterday, hypoactive bowel sounds. ABSENT: mass, organolmegaly, tenderness Extremities exam: ABSENT: pedal edema Neurological exam: PRESENT: oriented to situation Psychiatric exam: PRESENT: appropriate affect Results Laboratory Results: 10/09/16 15:30 10/09/16 15:30 10/01/16 10/01/16 10/01/16 05:50 05:50 21:15 Creatine Kinase 262 H CK-MB (CK-2) 5.95 H Troponin I 0.040 NT-Pro-B Natriuret Pep 814 Impressions: Abdomen Ultrasound 09/30/16 00:00 IMPRESSION: SEVERELY LIMITED ABDOMINAL ULTRASOUND. HEPATIC STEATOSIS. NO ADDITIONAL SIGNIFICANT ABNORMALITY NOTED. Acute Abdomen Series 09/30/16 01:58 IMPRESSION: Constipation. No findings to suggest obstruction. KUB X-Ray 10/08/16 09:11 IMPRESSION: Nasogastric tube tip and side port in the stomach. Persistent dilated loops of bowel in the upper abdomen Right medial basilar consolidation likely atelectasis. Pneumonia could not be excluded. Abdomen/Pelvis CT 10/09/16 00:00 IMPRESSION: Oral contrast is seen throughout the gastrointestinal tract without a definite transition point. Findings are suggestive of ileus No free intraperitoneal air or fluid Right basilar airspace disease atelectasis versus pneumonia Chest X-Ray 10/09/16 06:00 IMPRESSION: No gross acute infiltrates Nasogastric tube tip and side port in the stomach Assessment & Plan - Diagnosis (1) Adynamic ileus Is this a current diagnosis for this admission?: YesPlan: Dr Sykes suggested avoiding diltiazem. He is not getting it while NPO. Digoxin was recently down graded because of increased mortality. Amiodarone could be reloaded but has many side effects and interactions. Metoprolol may be the only option next time rate goes up. He also needs to move but has NG and rectal tubes now. (2) Paroxysmal atrial fibrillation Is this a current diagnosis for this admission?: YesPlan: irregular but rate ok most of time. (3) Malnutrition Is this a current diagnosis for this admission?: Yes (4) Acute and chronic respiratory failure Qualifiers: Respiratory failure complication: unspecified whether with hypoxia or hypercapnia Qualified Code(s): J96.20 - Acute and chronic respiratory failure, unspecified whether with hypoxia or hypercapnia Is this a current diagnosis for this admission?: Yes (5) Acute renal injury due to sepsis Is this a current diagnosis for this admission?: Yes (6) Constipation Qualifiers: Constipation type: slow transit constipation Qualified Code(s): K59.01 - Slow transit constipation Is this a current diagnosis for this admission?: Yes (7) Hyponatremia Is this a current diagnosis for this admission?: Yes (8) LFT elevation Is this a current diagnosis for this admission?: Yes (9) Precordial chest pain Is this a current diagnosis for this admission?: Yes (10) Diabetes Qualifiers: Diabetes mellitus type: type 2 Diabetes mellitus complication status: without complication Diabetes mellitus [facility] insulin use: with petroleum terminal plant operator use Qualified Code(s): E11.9 - Type 2 diabetes mellitus without complications Is this a current diagnosis for this admission?: Yes (11) Pneumonia Qualifiers: Pneumonia type: aspiration pneumonia Aspiration pneumonia type: unspecified Laterality: right Lung location: lower lobe of lung Qualified Code(s): J69.0 - Pneumonitis due to inhalation of food and vomit Is this a current diagnosis for this admission?: Yes
[2016-10-12] MEDS: BUDESONIDE NEB 0.5 MG/2 ML AMPUL NEB SCH ×2 (07:55→19:43)
[2016-10-12] MEDS: LANSOPRAZOLE 30 MG TAB.RAP.DR NG SCH (08:18)
[2016-10-12] MEDS: METHYLPREDNISOLONE INJ 40 MG/1 ML SDV IV SCH (09:50)
[2016-10-12] MEDS: INSULIN GLARGINE,HUM.REC.ANLOG 300 UNIT/3 ML INSULN.PEN SUBCUT SCH (09:51)
[2016-10-12] MEDS: ENOXAPARIN SODIUM INJ 30 MG/0.3 ML DISP.SYRIN SUBCUT SCH (09:51)
--- NOTE | 2016-10-12 12:43 | PDOC PROGRESS REPORT ---
Subjective Progress Note for:: 10/12/16 Subjective:: abdominal distension has improved. it was noted in Dr Mendez' note that Dr Sykes made recommendations with respect to Cardizem. however it should be noted that it was made by Dr Briceno, the Skimmer Scoop Operator patient still requiring BIPAP at some point can remove the NG tube patient will likely need rectal tube for a while, however patient may need to be mobilized to help with motility no bleeding is noted Physical Exam Vital Signs: Temp Pulse Resp BP Pulse Ox 98.0 F 86 20 133/64 H 98 10/12/16 07:35 10/12/16 07:35 10/12/16 07:35 10/12/16 07:35 10/12/16 07:35 Intake & Output 10/11/16 10/12/16 10/13/16 06:59 06:59 06:59 Intake Total 600 1130 Output Total 405 1753 Balance 195 -623 Weight 117.8 kg 116.9 kg General appearance: PRESENT: obese Head exam: PRESENT: normocephalic Eye exam: PRESENT: EOMI, PERRLA. ABSENT: scleral icterus Mouth exam: PRESENT: moist Throat exam: ABSENT: tonsillar exudate, tonsillogmegaly Neck exam: ABSENT: meningismus, tenderness, thyromegaly Respiratory exam: PRESENT: crackles, tachypnea - Exam 411 on the lenalidomide Cardiovascular exam: PRESENT: RRR, +S1, +S2 - when he had memory GI/Abdominal exam: PRESENT: distended. ABSENT: rebound, tenderness Neurological exam: PRESENT: reflexes normal, CN II-XII grossly intact Skin exam: PRESENT: normal color. ABSENT: mottled, pallor, petechiae, urticaria , vesicles Results Laboratory Results: 10/09/16 15:30 10/09/16 15:30 10/01/16 10/01/16 10/01/16 05:50 05:50 21:15 Creatine Kinase 262 H CK-MB (CK-2) 5.95 H Troponin I 0.040 NT-Pro-B Natriuret Pep 814 Impressions: Abdomen Ultrasound 09/30/16 00:00 IMPRESSION: SEVERELY LIMITED ABDOMINAL ULTRASOUND. HEPATIC STEATOSIS. NO ADDITIONAL SIGNIFICANT ABNORMALITY NOTED. Acute Abdomen Series 09/30/16 01:58 IMPRESSION: Constipation. No findings to suggest obstruction. KUB X-Ray 10/08/16 09:11 IMPRESSION: Nasogastric tube tip and side port in the stomach. Persistent dilated loops of bowel in the upper abdomen Right medial basilar consolidation likely atelectasis. Pneumonia could not be excluded. Abdomen/Pelvis CT 10/09/16 00:00 IMPRESSION: Oral contrast is seen throughout the gastrointestinal tract without a definite transition point. Findings are suggestive of ileus No free intraperitoneal air or fluid Right basilar airspace disease atelectasis versus pneumonia Chest X-Ray 10/09/16 06:00 IMPRESSION: No gross acute infiltrates Nasogastric tube tip and side port in the stomach Assessment & Plan - Diagnosis (1) Adynamic ileus Is this a current diagnosis for this admission?: YesPlan: abdominal distension improved however at some point will need removal of rectal and NG tube As noted, the recommendation for the Cardizem came from Dr Briceno and not myself will continue to follow - Time Time Spent with patient: 15-24 minutes
[2016-10-12] MEDS: INSULIN LISPRO 100 UNIT/ML 3 ML VIAL SUBCUT PRN ×2 (14:16→20:57)
[2016-10-12] MEDS: DEXTROSE 5%-NORMAL SALINE 1,000 ML IV PRN (20:18)
[2016-10-13] MEDS: IPRATROPIUM/ALBUTEROL 0.5-2.5 MG/3 ML AMPUL NEB SCH ×4 (01:51→19:35)
[2016-10-13] MEDS: AMPICILLIN SODIUM/SULBACTAM NA 1.5 GM in NORMAL SALINE 50 ML IV SCH ×4 (02:55→22:30)
[2016-10-13] MEDS: METOCLOPRAMIDE HCL INJ/PF 10 MG/2 ML SDV IV SCH ×4 (05:25→23:59)
--- NOTE | 2016-10-13 06:45 | PDOC PROGRESS REPORT ---
Subjective Progress Note for:: 10/13/16 Subjective:: occasional epigastric cramp Physical Exam Vital Signs: Temp Pulse Resp BP Pulse Ox 97.9 F 96 18 144/84 H 100 10/13/16 05:20 10/13/16 05:20 10/13/16 05:20 10/13/16 05:20 10/13/16 05:20 Intake & Output 10/11/16 10/12/16 10/13/16 07:59 07:59 07:59 Intake Total 600 1130 1050 Output Total 405 1753 750 Balance 195 -623 300 Weight 259 lb 11.272 oz 257 lb 11.526 oz 257 lb 7.999 oz General appearance: PRESENT: no acute distress Respiratory exam: PRESENT: wheezes - mild Cardiovascular exam: PRESENT: irregular rhythm - trigeminy. ABSENT: diastolic murmur, systolic murmur GI/Abdominal exam: PRESENT: distended. ABSENT: mass, organolmegaly, tenderness Extremities exam: ABSENT: pedal edema Results Laboratory Results: 10/09/16 15:30 10/09/16 15:30 Impressions: Abdomen Ultrasound 09/30/16 00:00 IMPRESSION: SEVERELY LIMITED ABDOMINAL ULTRASOUND. HEPATIC STEATOSIS. NO ADDITIONAL SIGNIFICANT ABNORMALITY NOTED. Acute Abdomen Series 09/30/16 01:58 IMPRESSION: Constipation. No findings to suggest obstruction. KUB X-Ray 10/08/16 09:11 IMPRESSION: Nasogastric tube tip and side port in the stomach. Persistent dilated loops of bowel in the upper abdomen Right medial basilar consolidation likely atelectasis. Pneumonia could not be excluded. Abdomen/Pelvis CT 10/09/16 00:00 IMPRESSION: Oral contrast is seen throughout the gastrointestinal tract without a definite transition point. Findings are suggestive of ileus No free intraperitoneal air or fluid Right basilar airspace disease atelectasis versus pneumonia Chest X-Ray 10/09/16 06:00 IMPRESSION: No gross acute infiltrates Nasogastric tube tip and side port in the stomach Assessment & Plan - Diagnosis (1) Adynamic ileus Is this a current diagnosis for this admission?: YesPlan: ng output much arch support technician color. ?out tomorrow. Rectal tube still draining. Is turning in bed (2) Paroxysmal atrial fibrillation Is this a current diagnosis for this admission?: Yes (3) Malnutrition Is this a current diagnosis for this admission?: Yes (4) Acute and chronic respiratory failure Qualifiers: Respiratory failure complication: unspecified whether with hypoxia or hypercapnia Qualified Code(s): J96.20 - Acute and chronic respiratory failure, unspecified whether with hypoxia or hypercapnia Is this a current diagnosis for this admission?: Yes (5) Acute renal injury due to sepsis Is this a current diagnosis for this admission?: Yes (6) Constipation Qualifiers: Constipation type: slow transit constipation Qualified Code(s): K59.01 - Slow transit constipation Is this a current diagnosis for this admission?: Yes (7) Hyponatremia Is this a current diagnosis for this admission?: Yes (8) LFT elevation Is this a current diagnosis for this admission?: Yes (9) Precordial chest pain Is this a current diagnosis for this admission?: Yes (10) Diabetes Qualifiers: Diabetes mellitus type: type 2 Diabetes mellitus complication status: without complication Diabetes mellitus local intermodal truck driver insulin use: with local intermodal truck driver use Qualified Code(s): E11.9 - Type 2 diabetes mellitus without complications Is this a current diagnosis for this admission?: Yes (11) Pneumonia Qualifiers: Pneumonia type: aspiration pneumonia Aspiration pneumonia type: unspecified Laterality: right Lung location: lower lobe of lung Qualified Code(s): J69.0 - Pneumonitis due to inhalation of food and vomit Is this a current diagnosis for this admission?: Yes
[2016-10-13] MEDS: BUDESONIDE NEB 0.5 MG/2 ML AMPUL NEB SCH ×2 (08:09→19:35)
[2016-10-13] MEDS: LANSOPRAZOLE 30 MG TAB.RAP.DR NG SCH (08:41)
[2016-10-13] MEDS: ENOXAPARIN SODIUM INJ 30 MG/0.3 ML DISP.SYRIN SUBCUT SCH (09:04)
[2016-10-13] MEDS: METHYLPREDNISOLONE INJ 40 MG/1 ML SDV IV SCH (09:04)
[2016-10-13] MEDS: INSULIN GLARGINE,HUM.REC.ANLOG 300 UNIT/3 ML INSULN.PEN SUBCUT SCH (09:07)
--- NOTE | 2016-10-13 16:46 | PDOC PROGRESS REPORT ---
Subjective Progress Note for:: 10/10/16 Subjective:: Patient condition essentially the same. Remains on bilevel therapy. Still remains in mild respiratory distress. Still has abdominal distention. Physical Exam Vital Signs: Temp Pulse Resp BP Pulse Ox 97.4 F 85 16 145/71 H 96 10/10/16 03:46 10/10/16 20:00 10/10/16 20:00 10/10/16 03:46 10/10/16 20:00 Intake & Output 10/09/16 10/10/16 10/11/16 06:59 06:59 06:59 Intake Total 200 350 Output Total 600 975 Balance -400 -625 Weight 120.5 kg 120.1 kg Exam: GENERAL: well-nourished and mild respiratory distress. Alert and oriented x 2 with intermittent confusion but nurses HEAD: Atraumatic, normocephalic. EYES: Pupils equal round and reactive to light, extraocular movements intact, sclera anicteric, conjunctiva are normal. ENT: TMs normal, nares patent, oropharynx clear without exudates. Moist mucous membranes. No oral ulcerations or bleeding gums noted NECK: supple without lymphadenopathy. Trachea is central. No cervical or axillary lymphadenopathy noted. Carotids are 2+, JVD WNL LUNGS: Respiration seems mildly labored with bilateral mild wheezing and fine crackles at bases. CHEST: Palpation of the chest wall shows no significant chest wall tenderness. No other significant abnormalities noted. 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 ABDOMEN: Soft, no significant tenderness appreciated, normoactive bowel sounds. No guarding, no rebound. No rigidity noted . No masses appreciated. EXTREMITIES: Pedal pulses are 1-2+, no calf tenderness noted. No clubbing or cyanosis. 1+ pedal edema noted NEUROLOGICAL: Focused neurological exam showed no significant neurologic deficit. Normal speech, no focal weakness appreciated. PSYCH: Normal mood, normal affect. Judgment and insight within normal limits. SKIN: No significant ecchymosis, mild chronic dermatitis rash noted. MUSCULOSKELETAL EXAM: No significant joint swelling noted. Results Laboratory Results: 10/09/16 15:30 10/09/16 15:30 10/01/16 10/01/16 10/01/16 05:50 05:50 21:15 Creatine Kinase 262 H CK-MB (CK-2) 5.95 H Troponin I 0.040 NT-Pro-B Natriuret Pep 814 Impressions: Abdomen Ultrasound 09/30/16 00:00 IMPRESSION: SEVERELY LIMITED ABDOMINAL ULTRASOUND. HEPATIC STEATOSIS. NO ADDITIONAL SIGNIFICANT ABNORMALITY NOTED. Acute Abdomen Series 09/30/16 01:58 IMPRESSION: Constipation. No findings to suggest obstruction. KUB X-Ray 10/08/16 09:11 IMPRESSION: Nasogastric tube tip and side port in the stomach. Persistent dilated loops of bowel in the upper abdomen Right medial basilar consolidation likely atelectasis. Pneumonia could not be excluded. Abdomen/Pelvis CT 10/09/16 00:00 IMPRESSION: Oral contrast is seen throughout the gastrointestinal tract without a definite transition point. Findings are suggestive of ileus No free intraperitoneal air or fluid Right basilar airspace disease atelectasis versus pneumonia Chest X-Ray 10/09/16 06:00 IMPRESSION: No gross acute infiltrates Nasogastric tube tip and side port in the stomach Assessment & Plan - Diagnosis (1) Atrial fibrillation Qualifiers: Atrial fibrillation type: persistent Qualified Code(s): I48.1 - Persistent atrial fibrillation Is this a current diagnosis for this admission?: Yes (2) Acute and chronic respiratory failure ([id number]) Qualifiers: Respiratory failure complication: hypoxia and hypercapnia Qualified Code(s): J96.21 - Acute and chronic respiratory failure with hypoxia Is this a current diagnosis for this admission?: Yes (3) Adynamic ileus Is this a current diagnosis for this admission?: Yes (4) Constipation Qualifiers: Constipation type: slow transit constipation Qualified Code(s): K59.01 - Slow transit constipation Is this a current diagnosis for this admission?: Yes (5) Diabetes Qualifiers: Diabetes mellitus type: type 2 Diabetes mellitus complication status: without complication Diabetes mellitus computer terminal operator insulin use: with computer terminal operator use Qualified Code(s): E11.9 - Type 2 diabetes mellitus without complications Is this a current diagnosis for this admission?: Yes - Notes Notes: Patient noted to be intermittent sinus rhythm on telemetry strips reviewed. Rate well controlled. Patient remains in mild respiratory distress. Yesterday I did clear patient for any colonoscopy procedure if needed. Will continue to follow patient's cardiovascular status. Currently no significant volume overload or any chest pain or significant new dysrhythmia noted. Will continue to follow. Overall prognosis is guarded. Patient remains DNR. - Time Time with patient: 15-25 minutes - CODE STATUS : was discussed, patient remains DO NOT RESUSCITATE. Surrogate decision-maker unchanged. Multiple medical problems were addressed.
--- NOTE | 2016-10-13 17:03 | PDOC PROGRESS REPORT ---
Subjective Progress Note for:: 10/12/16 Subjective:: Patient condition has improved. Patient today noted to be on nasal cannula. He seems to be tolerating this well. Lungs sounded better today. Hopefully he will be able to tolerate beta lor for rate control. Beta blockers will be preferred agents as cardiazem can cause adynamic ileus. We will discuss this option with face cleaner and manager communication. No new development since yesterday. Patient actually has been noted to be in sinus rhythm for the last 48 hours. Physical Exam Vital Signs: Temp Pulse Resp BP Pulse Ox 98.3 F 104 H 20 138/68 H 97 10/12/16 20:14 10/12/16 20:14 10/12/16 20:14 10/12/16 20:14 10/12/16 20:14 Intake & Output 10/11/16 10/12/16 10/13/16 06:59 06:59 06:59 Intake Total 600 1130 550 Output Total 405 1753 700 Balance 195 -623 -150 Weight 117.8 kg 116.9 kg Exam: GENERAL: well-nourished and in mild respiratory distress. Alert and oriented x 2, patient noted to be intermittently confused. HEAD: Atraumatic, normocephalic. EYES: Pupils equal round and reactive to light, extraocular movements intact, sclera anicteric, conjunctiva are normal. ENT: TMs normal, nares patent, oropharynx clear without exudates. Moist mucous membranes. No oral ulcerations or bleeding gums noted NECK: supple without lymphadenopathy. Trachea is central. No cervical or axillary lymphadenopathy noted. Carotids are 2+, JVD WNL LUNGS: Respiration seems mildly labored, bibasilar fine crackles and bilateral mild wheezes rales or rhonchi noted. No significant dullness noted on percussion. CHEST: Palpation of the chest wall shows no significant chest wall tenderness. No other significant abnormalities noted. 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 ABDOMEN: Distended and firm, no significant tenderness appreciated, diminished bowel sounds. No guarding, no rebound. No rigidity noted . No masses appreciated. EXTREMITIES: Pedal pulses are 1-2+, no calf tenderness noted. No clubbing or cyanosis. 1+ pedal edema noted. Dermatitis finding noted bilaterally NEUROLOGICAL: Focused neurological exam showed no significant neurologic deficit. Normal speech, no focal weakness appreciated. PSYCH: Normal mood, normal affect. Judgment and insight within normal limits. SKIN: No significant ecchymosis, or signs of pruritus noted. MUSCULOSKELETAL EXAM: No significant joint swelling noted. Results Laboratory Results: 10/09/16 15:30 10/09/16 15:30 10/01/16 10/01/16 10/01/16 05:50 05:50 21:15 Creatine Kinase 262 H CK-MB (CK-2) 5.95 H Troponin I 0.040 NT-Pro-B Natriuret Pep 814 EKG Comments: Twelve-lead EKG from yesterday reviewed. Patient noted to be in sinus rhythm Impressions: Abdomen Ultrasound 09/30/16 00:00 IMPRESSION: SEVERELY LIMITED ABDOMINAL ULTRASOUND. HEPATIC STEATOSIS. NO ADDITIONAL SIGNIFICANT ABNORMALITY NOTED. Acute Abdomen Series 09/30/16 01:58 IMPRESSION: Constipation. No findings to suggest obstruction. KUB X-Ray 10/08/16 09:11 IMPRESSION: Nasogastric tube tip and side port in the stomach. Persistent dilated loops of bowel in the upper abdomen Right medial basilar consolidation likely atelectasis. Pneumonia could not be excluded. Abdomen/Pelvis CT 10/09/16 00:00 IMPRESSION: Oral contrast is seen throughout the gastrointestinal tract without a definite transition point. Findings are suggestive of ileus No free intraperitoneal air or fluid Right basilar airspace disease atelectasis versus pneumonia Chest X-Ray 10/09/16 06:00 IMPRESSION: No gross acute infiltrates Nasogastric tube tip and side port in the stomach Assessment & Plan - Diagnosis (1) Atrial fibrillation Qualifiers: Atrial fibrillation type: paroxysmal Qualified Code(s): I48.0 - Paroxysmal atrial fibrillation Is this a current diagnosis for this admission?: Yes (2) Acute and chronic respiratory failure ([id number]) Qualifiers: Respiratory failure complication: hypoxia and hypercapnia Qualified Code(s): J96.21 - Acute and chronic respiratory failure with hypoxia Is this a current diagnosis for this admission?: Yes (3) Adynamic ileus Is this a current diagnosis for this admission?: Yes (4) Constipation Qualifiers: Constipation type: slow transit constipation Qualified Code(s): K59.01 - Slow transit constipation Is this a current diagnosis for this admission?: Yes (5) Diabetes Qualifiers: Diabetes mellitus type: type 2 Diabetes mellitus complication status: without complication Diabetes mellitus terminal operator insulin use: with intermediate use Qualified Code(s): E11.9 - Type 2 diabetes mellitus without complications Is this a current diagnosis for this admission?: Yes - Notes Notes: Atrial fibrillation now paroxysmal. Patient has been noted to be in sinus rhythm for the last 48 hours. Severe COPD and asthma: Stable. Adynamic ileus: Beta blockers will be preferred agents as cardiazem can cause adynamic ileus. We tried discuss this option with face cleaner and manager communication. Patient continues to have respiratory insufficiency but stable. Diabetes is reasonably well controlled. - Time Time with patient: 15-25 minutes
[2016-10-14] MEDS: IPRATROPIUM/ALBUTEROL 0.5-2.5 MG/3 ML AMPUL NEB SCH ×4 (01:53→19:35)
[2016-10-14] MEDS: AMPICILLIN SODIUM/SULBACTAM NA 1.5 GM in NORMAL SALINE 50 ML IV SCH ×4 (03:43→21:12)
[2016-10-14] MEDS: DEXTROSE 5%-NORMAL SALINE 1,000 ML IV PRN (04:53)
[2016-10-14] MEDS: METOCLOPRAMIDE HCL INJ/PF 10 MG/2 ML SDV IV SCH ×3 (05:34→17:41)
--- NOTE | 2016-10-14 06:53 | PDOC PROGRESS REPORT ---
Subjective Progress Note for:: 10/14/16 Subjective:: hungry. No cpap last night. Less distention. Physical Exam Vital Signs: Temp Pulse Resp BP Pulse Ox 98.3 F 94 16 139/80 H 97 10/14/16 03:19 10/14/16 03:19 10/14/16 03:19 10/14/16 03:19 10/14/16 03:19 Intake & Output 10/12/16 10/13/16 10/14/16 07:59 07:59 07:59 Intake Total 1130 1050 1734 Output Total 1753 1000 450 Balance -461 89 9222 Weight 257 lb 11.526 oz 257 lb 7.999 oz 260 lb 9.382 oz General appearance: PRESENT: no acute distress Respiratory exam: PRESENT: clear to auscultation ronni Cardiovascular exam: PRESENT: irregular rhythm - skips. ABSENT: diastolic murmur, systolic murmur GI/Abdominal exam: PRESENT: diminished bowel sounds, distended - less than before. ABSENT: mass, organolmegaly, tenderness Extremities exam: ABSENT: pedal edema Neurological exam: PRESENT: oriented to situation Psychiatric exam: PRESENT: appropriate affect Results Laboratory Results: 10/09/16 15:30 10/09/16 15:30 Impressions: Abdomen Ultrasound 09/30/16 00:00 IMPRESSION: SEVERELY LIMITED ABDOMINAL ULTRASOUND. HEPATIC STEATOSIS. NO ADDITIONAL SIGNIFICANT ABNORMALITY NOTED. Acute Abdomen Series 09/30/16 01:58 IMPRESSION: Constipation. No findings to suggest obstruction. KUB X-Ray 10/08/16 09:11 IMPRESSION: Nasogastric tube tip and side port in the stomach. Persistent dilated loops of bowel in the upper abdomen Right medial basilar consolidation likely atelectasis. Pneumonia could not be excluded. Abdomen/Pelvis CT 10/09/16 00:00 IMPRESSION: Oral contrast is seen throughout the gastrointestinal tract without a definite transition point. Findings are suggestive of ileus No free intraperitoneal air or fluid Right basilar airspace disease atelectasis versus pneumonia Chest X-Ray 10/09/16 06:00 IMPRESSION: No gross acute infiltrates Nasogastric tube tip and side port in the stomach Assessment & Plan - Diagnosis (1) Adynamic ileus Is this a current diagnosis for this admission?: YesPlan: NG mostly clear from ice. Pull . Rectal output minimal. Pull. (2) Paroxysmal atrial fibrillation Is this a current diagnosis for this admission?: YesPlan: just had run of [id number]. Metoprolol (3) Malnutrition Is this a current diagnosis for this admission?: YesPlan: clear liquids. (4) Acute and chronic respiratory failure Qualifiers: Respiratory failure complication: unspecified whether with hypoxia or hypercapnia Qualified Code(s): J96.20 - Acute and chronic respiratory failure, unspecified whether with hypoxia or hypercapnia Is this a current diagnosis for this admission?: Yes (5) Acute renal injury due to sepsis Is this a current diagnosis for this admission?: Yes (6) Constipation Qualifiers: Constipation type: slow transit constipation Qualified Code(s): K59.01 - Slow transit constipation Is this a current diagnosis for this admission?: Yes (7) Hyponatremia Is this a current diagnosis for this admission?: Yes (8) LFT elevation Is this a current diagnosis for this admission?: Yes (9) Precordial chest pain Is this a current diagnosis for this admission?: Yes (10) Diabetes Qualifiers: Diabetes mellitus type: type 2 Diabetes mellitus complication status: without complication Diabetes mellitus policy specialist insulin use: with policy specialist use Qualified Code(s): E11.9 - Type 2 diabetes mellitus without complications Is this a current diagnosis for this admission?: Yes (11) Pneumonia Qualifiers: Pneumonia type: aspiration pneumonia Aspiration pneumonia type: unspecified Laterality: right Lung location: lower lobe of lung Qualified Code(s): J69.0 - Pneumonitis due to inhalation of food and vomit Is this a current diagnosis for this admission?: Yes
[2016-10-14] MEDS: BUDESONIDE NEB 0.5 MG/2 ML AMPUL NEB SCH ×2 (08:10→19:35)
[2016-10-14 08:12] LABS: ALANINE AMINOTRANSFERASE 62 U/L (21-72); ALBUMIN 2.6 g/dL (3.5-5.0); ALKALINE PHOSPHATASE 66 U/L (38-126); ANION GAP 5 (5-19); ASPARTATE AMINO TRANSFERASE 28 U/L (17-59); BILIRUBIN,DIRECT 0.4 mg/dL (0.0-0.4); BILIRUBIN,TOTAL 0.6 mg/dL (0.2-1.3); BLOOD UREA NITROGEN 14 mg/dL (7-20); CALCIUM 9.7 mg/dL (8.4-10.2); CARBON DIOXIDE 32 mmol/L (22-30); CHLORIDE 104 mmol/L (98-107); CREATININE RESULT 0.68 mg/dL (0.52-1.25); GLUCOSE 101 mg/dL (75-110); POTASSIUM 3.1 mmol/L (3.6-5.0); TOTAL PROTEIN 5.3 g/dL (6.3-8.2)
[2016-10-14 08:21] LABS: HEMATOCRIT 30.3 % (37.9-51.0); HGB HCT DIFFERENCE -0.3; MEAN CORPUSCULAR HEMOGLOBIN 27.9 pg (27.0-33.4); MEAN CORPUSCULAR VOLUME 85 fl (80-97); RED BLOOD COUNT 3.59 10^6/uL (4.35-5.55); RED CELL DISTRIBUTION WIDTH 16.7 % (11.5-14.0); WHITE BLOOD COUNT 12.5 10^3/uL (4.0-10.5)
[2016-10-14 08:36] LABS: BASOPHILS % (MANUAL) 0 % (0-2); EOSINOPHILS % (MANUAL) 0 % (0-6); LYMPHOCYTES % (MANUAL) 3 % (13-45); TOTAL CELLS COUNTED 100
[2016-10-14 08:37] LABS: ANISOCYTOSIS 1+; HELMET CELLS SLIGHT; HYPOCHROMASIA 1+; OVALOCYTES SLIGHT; POIKILOCYTOSIS SLIGHT; POLYCHROMASIA SLIGHT; TEAR DROP CELLS SLIGHT
[2016-10-14 08:38] LABS: PLATELET CLUMPS PRESENT
[2016-10-14] MEDS: LANSOPRAZOLE 30 MG TAB.RAP.DR NG SCH (08:56)
[2016-10-14] MEDS: METOPROLOL SUCCINATE 50 MG TAB.SR.24H PO SCH (09:35)
[2016-10-14] MEDS: METHYLPREDNISOLONE INJ 40 MG/1 ML SDV IV SCH (09:37)
[2016-10-14] MEDS: ENOXAPARIN SODIUM INJ 30 MG/0.3 ML DISP.SYRIN SUBCUT SCH (09:37)
[2016-10-14] MEDS: INSULIN GLARGINE,HUM.REC.ANLOG 300 UNIT/3 ML INSULN.PEN SUBCUT SCH (09:38)
[2016-10-14] MEDS ORDERED: POTASSIUM CHLORIDE 10 MEQ TABLET.SA PO ONE ×2 (09:55→11:00)
[2016-10-14] MEDS: INSULIN LISPRO 100 UNIT/ML 3 ML VIAL SUBCUT PRN ×3 (12:43→21:34)
[2016-10-14] MEDS: POTASSIUM CHLORIDE 10 MEQ TABLET.SA PO SCH (17:42)
[2016-10-15] MEDS: METOCLOPRAMIDE HCL INJ/PF 10 MG/2 ML SDV IV SCH ×5 (00:27→23:55)
[2016-10-15] MEDS: IPRATROPIUM/ALBUTEROL 0.5-2.5 MG/3 ML AMPUL NEB SCH ×4 (02:06→19:35)
[2016-10-15] MEDS: AMPICILLIN SODIUM/SULBACTAM NA 1.5 GM in NORMAL SALINE 50 ML IV SCH ×4 (03:39→21:00)
--- NOTE | 2016-10-15 07:18 | PDOC PROGRESS REPORT ---
Subjective Progress Note for:: 10/15/16 Subjective:: Dyspnea worse after repositioning. Chair transfer was a big struggle yesterday. Physical Exam Vital Signs: Temp Pulse Resp BP Pulse Ox 98.7 F 55 L 20 139/85 H 98 10/15/16 04:12 10/15/16 04:12 10/15/16 04:12 10/15/16 04:12 10/15/16 04:12 Intake & Output 10/13/16 10/14/16 10/15/16 07:59 07:59 07:59 Intake Total 1050 2089 3064 Output Total 1000 475 825 Balance 50 1614 2239 Weight 257 lb 7.999 oz 260 lb 9.382 oz 263 lb 10.766 oz General appearance: PRESENT: mild distress Respiratory exam: PRESENT: wheezes - moderate Cardiovascular exam: PRESENT: irregular rhythm. ABSENT: diastolic murmur, systolic murmur GI/Abdominal exam: PRESENT: distended. ABSENT: tenderness Neurological exam: PRESENT: oriented to situation Psychiatric exam: PRESENT: appropriate affect Results Laboratory Results: 10/14/16 07:40 10/14/16 07:40 10/14/16 10/14/16 07:40 07:40 WBC 12.5 H RBC 3.59 L Hgb 10.0 L Hct 30.3 L MCV 85 MCH 27.9 MCHC 33.0 RDW 16.7 H Plt Count 341 Seg Neutrophils % Not Reportable Lymphocytes % Not Reportable Monocytes % Not Reportable Eosinophils % Not Reportable Basophils % Not Reportable Absolute Neutrophils Not Reportable Absolute Lymphocytes Not Reportable Absolute Monocytes Not Reportable Absolute Eosinophils Not Reportable Absolute Basophils Not Reportable Sodium 141.0 Potassium 3.1 L Chloride 104 Carbon Dioxide 32 H Anion Gap 5 BUN 14 Creatinine 0.68 Est GFR ( Amer) > 60 Est GFR (Non-Af Amer) > 60 Glucose 101 Calcium 9.7 Total Bilirubin 0.6 AST 28 ALT 62 Alkaline Phosphatase 66 Total Protein 5.3 L Albumin 2.6 L 10/01/16 10/01/16 10/01/16 05:50 05:50 21:15 Creatine Kinase 262 H CK-MB (CK-2) 5.95 H Troponin I 0.040 NT-Pro-B Natriuret Pep 814 Impressions: Abdomen Ultrasound 09/30/16 00:00 IMPRESSION: SEVERELY LIMITED ABDOMINAL ULTRASOUND. HEPATIC STEATOSIS. NO ADDITIONAL SIGNIFICANT ABNORMALITY NOTED. Acute Abdomen Series 09/30/16 01:58 IMPRESSION: Constipation. No findings to suggest obstruction. KUB X-Ray 10/08/16 09:11 IMPRESSION: Nasogastric tube tip and side port in the stomach. Persistent dilated loops of bowel in the upper abdomen Right medial basilar consolidation likely atelectasis. Pneumonia could not be excluded. Abdomen/Pelvis CT 10/09/16 00:00 IMPRESSION: Oral contrast is seen throughout the gastrointestinal tract without a definite transition point. Findings are suggestive of ileus No free intraperitoneal air or fluid Right basilar airspace disease atelectasis versus pneumonia Chest X-Ray 10/09/16 06:00 IMPRESSION: No gross acute infiltrates Nasogastric tube tip and side port in the stomach Assessment & Plan - Diagnosis (1) Adynamic ileus Is this a current diagnosis for this admission?: Yes (2) Paroxysmal atrial fibrillation Is this a current diagnosis for this admission?: YesPlan: rate 200 yesterday until metoprolol 50 kicked in (3) Malnutrition Is this a current diagnosis for this admission?: YesPlan: tolerating liquids (4) Acute and chronic respiratory failure Qualifiers: Respiratory failure complication: unspecified whether with hypoxia or hypercapnia Qualified Code(s): J96.20 - Acute and chronic respiratory failure, unspecified whether with hypoxia or hypercapnia Is this a current diagnosis for this admission?: YesPlan: needs SNF (5) Acute renal injury due to sepsis Is this a current diagnosis for this admission?: Yes (6) Constipation Qualifiers: Constipation type: slow transit constipation Qualified Code(s): K59.01 - Slow transit constipation Is this a current diagnosis for this admission?: Yes (7) Hyponatremia Is this a current diagnosis for this admission?: Yes (8) LFT elevation Is this a current diagnosis for this admission?: Yes (9) Precordial chest pain Is this a current diagnosis for this admission?: Yes (10) Diabetes Qualifiers: Diabetes mellitus type: type 2 Diabetes mellitus complication status: without complication Diabetes mellitus long term care social worker insulin use: with long term care social worker use Qualified Code(s): E11.9 - Type 2 diabetes mellitus without complications Is this a current diagnosis for this admission?: Yes (11) Pneumonia Qualifiers: Pneumonia type: aspiration pneumonia Aspiration pneumonia type: unspecified Laterality: right Lung location: lower lobe of lung Qualified Code(s): J69.0 - Pneumonitis due to inhalation of food and vomit Is this a current diagnosis for this admission?: Yes (12) Hypokalemia Is this a current diagnosis for this admission?: YesPlan: on replacement
[2016-10-15] MEDS: BUDESONIDE NEB 0.5 MG/2 ML AMPUL NEB SCH ×2 (07:34→19:35)
[2016-10-15] MEDS: LANSOPRAZOLE 30 MG TAB.RAP.DR NG SCH (08:47)
[2016-10-15] MEDS: ENOXAPARIN SODIUM INJ 30 MG/0.3 ML DISP.SYRIN SUBCUT SCH (09:06)
[2016-10-15] MEDS: INSULIN GLARGINE,HUM.REC.ANLOG 300 UNIT/3 ML INSULN.PEN SUBCUT SCH (09:07)
[2016-10-15] MEDS: METOPROLOL SUCCINATE 50 MG TAB.SR.24H PO SCH (09:08)
[2016-10-15] MEDS: METHYLPREDNISOLONE INJ 40 MG/1 ML SDV IV SCH (09:08)
[2016-10-15] MEDS: POTASSIUM CHLORIDE 10 MEQ TABLET.SA PO SCH ×2 (09:09→17:39)
[2016-10-15] MEDS: LEVALBUTEROL HCL NEB 1.25 MG/3 ML AMPUL NEB PRN ×2 (10:55→16:02)
[2016-10-15] MEDS: INSULIN LISPRO 100 UNIT/ML 3 ML VIAL SUBCUT PRN ×3 (13:05→22:06)
[2016-10-15] MEDS: DEXTROSE 5%-NORMAL SALINE 1,000 ML IV PRN (17:19)
--- NOTE | 2016-10-15 19:14 | PDOC PROGRESS REPORT ---
Subjective Progress Note for:: 10/15/16 Subjective:: Patient condition about the same. Patient today noted to be on oronasal mask and getting bronchodilator therapy. It was noted by Dr. Brink that patient had less distention of his stomach on nights he does not use his BiPAP therapy. It seems patient could be swallowing a lot of air with positive pressure ventilation and it is distending his stomach. I asked patient if he is willing to shave off his facial hair and he actually declined even trimming it. He was informed that it might help with positive air pressure therapy. Physical Exam Vital Signs: Temp Pulse Resp BP Pulse Ox 98.8 F 77 20 131/62 H 100 10/15/16 16:00 10/15/16 16:02 10/15/16 16:02 10/15/16 16:00 10/15/16 16:02 Intake & Output 10/14/16 10/15/16 10/16/16 06:59 06:59 06:59 Intake Total 2089 3064 1346 Output Total 475 825 650 Balance 1614 8319 696 Weight 118.2 kg 119.6 kg Exam: GENERAL: well-nourished and in mild respiratory distress. Alert and oriented x 2, patient noted to be intermittently confused. HEAD: Atraumatic, normocephalic. EYES: Pupils equal round and reactive to light, extraocular movements intact, sclera anicteric, conjunctiva are normal. ENT: TMs normal, nares patent, oropharynx clear without exudates. Moist mucous membranes. No oral ulcerations or bleeding gums noted NECK: supple without lymphadenopathy. Trachea is central. No cervical or axillary lymphadenopathy noted. Carotids are 2+, JVD WNL LUNGS: Respiration seems mildly labored, bibasilar fine crackles and bilateral mild wheezes rales or rhonchi noted. No significant dullness noted on percussion. CHEST: Palpation of the chest wall shows no significant chest wall tenderness. No other significant abnormalities noted. 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 ABDOMEN: Distended and firm, no significant tenderness appreciated, diminished bowel sounds. No guarding, no rebound. No rigidity noted . No masses appreciated. EXTREMITIES: Pedal pulses are 1-2+, no calf tenderness noted. No clubbing or cyanosis. 1+ pedal edema noted. Dermatitis finding noted bilaterally NEUROLOGICAL: Focused neurological exam showed no significant neurologic deficit. Normal speech, no focal weakness appreciated. PSYCH: Normal mood, normal affect. Judgment and insight within normal limits. SKIN: No significant ecchymosis, or signs of pruritus noted. MUSCULOSKELETAL EXAM: No significant joint swelling noted. Results Laboratory Results: 10/14/16 07:40 10/14/16 07:40 10/01/16 10/01/16 10/01/16 05:50 05:50 21:15 Creatine Kinase 262 H CK-MB (CK-2) 5.95 H Troponin I 0.040 NT-Pro-B Natriuret Pep 814 Impressions: Abdomen Ultrasound 09/30/16 00:00 IMPRESSION: SEVERELY LIMITED ABDOMINAL ULTRASOUND. HEPATIC STEATOSIS. NO ADDITIONAL SIGNIFICANT ABNORMALITY NOTED. Acute Abdomen Series 09/30/16 01:58 IMPRESSION: Constipation. No findings to suggest obstruction. KUB X-Ray 10/08/16 09:11 IMPRESSION: Nasogastric tube tip and side port in the stomach. Persistent dilated loops of bowel in the upper abdomen Right medial basilar consolidation likely atelectasis. Pneumonia could not be excluded. Abdomen/Pelvis CT 10/09/16 00:00 IMPRESSION: Oral contrast is seen throughout the gastrointestinal tract without a definite transition point. Findings are suggestive of ileus No free intraperitoneal air or fluid Right basilar airspace disease atelectasis versus pneumonia Chest X-Ray 10/09/16 06:00 IMPRESSION: No gross acute infiltrates Nasogastric tube tip and side port in the stomach Assessment & Plan - Diagnosis (1) Atrial fibrillation Qualifiers: Atrial fibrillation type: paroxysmal Qualified Code(s): I48.0 - Paroxysmal atrial fibrillation Is this a current diagnosis for this admission?: Yes (2) Acute and chronic respiratory failure ([id number]) Qualifiers: Respiratory failure complication: hypoxia and hypercapnia Qualified Code(s): J96.21 - Acute and chronic respiratory failure with hypoxia Is this a current diagnosis for this admission?: Yes (3) Adynamic ileus Is this a current diagnosis for this admission?: Yes (4) Constipation Qualifiers: Constipation type: slow transit constipation Qualified Code(s): K59.01 - Slow transit constipation Is this a current diagnosis for this admission?: Yes (5) Diabetes Qualifiers: Diabetes mellitus type: type 2 Diabetes mellitus complication status: without complication Diabetes mellitus long chain beamer insulin use: with skilled nursing use Qualified Code(s): E11.9 - Type 2 diabetes mellitus without complications Is this a current diagnosis for this admission?: Yes - Notes Notes: Atrial fibrillation: Patient has maintained sinus rhythm over several days. Patient placed on metoprolol succinate earlier today by. Will observe for any worsening of respiratory status. Acute on chronic respiratory failure: As noted above I recommended to the patient that he should continue special care for better fit with mask for positive pressure ventilation but he had declined to do so. Adynamic ileus: Stable. Diabetes: Stable Severe COPD: Being expectantly managed by rolling mill operator and pulmonary physician. As noted above will evaluate him on as needed basis. Patient does have severe significant comorbid problems. - Time Time with patient: 15-25 minutes Medications reviewed and adjusted accordingly: Yes
[2016-10-16] MEDS: IPRATROPIUM/ALBUTEROL 0.5-2.5 MG/3 ML AMPUL NEB SCH ×4 (02:01→19:57)
[2016-10-16] MEDS: AMPICILLIN SODIUM/SULBACTAM NA 1.5 GM in NORMAL SALINE 50 ML IV SCH ×4 (03:23→21:03)
[2016-10-16] MEDS: METOCLOPRAMIDE HCL INJ/PF 10 MG/2 ML SDV IV SCH ×3 (06:06→17:43)
--- NOTE | 2016-10-16 07:32 | PDOC PROGRESS REPORT ---
Subjective Progress Note for:: 10/16/16 Subjective:: hungry for full liquids. No stool. No cpap last night. Physical Exam Vital Signs: Temp Pulse Resp BP Pulse Ox 98.8 F 88 18 131/62 H 100 10/15/16 16:00 10/16/16 02:00 10/16/16 02:00 10/15/16 16:00 10/16/16 02:00 Intake & Output 10/14/16 10/15/16 10/16/16 07:59 07:59 07:59 Intake Total 2089 3064 2891 Output Total 713 135 6493 Balance 1614 2239 1666 Weight 260 lb 9.382 oz 263 lb 10.766 oz 263 lb 7.238 oz General appearance: PRESENT: no acute distress Respiratory exam: PRESENT: wheezes - moderate Cardiovascular exam: ABSENT: diastolic murmur, irregular rhythm, systolic murmur GI/Abdominal exam: PRESENT: distended. ABSENT: mass, organolmegaly, tenderness Extremities exam: PRESENT: pedal edema - L trace Results Laboratory Results: 10/14/16 07:40 10/14/16 07:40 Impressions: Abdomen Ultrasound 09/30/16 00:00 IMPRESSION: SEVERELY LIMITED ABDOMINAL ULTRASOUND. HEPATIC STEATOSIS. NO ADDITIONAL SIGNIFICANT ABNORMALITY NOTED. Acute Abdomen Series 09/30/16 01:58 IMPRESSION: Constipation. No findings to suggest obstruction. KUB X-Ray 10/08/16 09:11 IMPRESSION: Nasogastric tube tip and side port in the stomach. Persistent dilated loops of bowel in the upper abdomen Right medial basilar consolidation likely atelectasis. Pneumonia could not be excluded. Abdomen/Pelvis CT 10/09/16 00:00 IMPRESSION: Oral contrast is seen throughout the gastrointestinal tract without a definite transition point. Findings are suggestive of ileus No free intraperitoneal air or fluid Right basilar airspace disease atelectasis versus pneumonia Chest X-Ray 10/09/16 06:00 IMPRESSION: No gross acute infiltrates Nasogastric tube tip and side port in the stomach Assessment & Plan - Diagnosis (1) Adynamic ileus Is this a current diagnosis for this admission?: Yes (2) Paroxysmal atrial fibrillation Is this a current diagnosis for this admission?: YesPlan: rate better on metoprolol (3) Malnutrition Is this a current diagnosis for this admission?: YesPlan: full liquids (4) Acute and chronic respiratory failure Qualifiers: Respiratory failure complication: unspecified whether with hypoxia or hypercapnia Qualified Code(s): J96.20 - Acute and chronic respiratory failure, unspecified whether with hypoxia or hypercapnia Is this a current diagnosis for this admission?: YesPlan: [id number] (5) Acute renal injury due to sepsis Is this a current diagnosis for this admission?: Yes (6) Constipation Qualifiers: Constipation type: slow transit constipation Qualified Code(s): K59.01 - Slow transit constipation Is this a current diagnosis for this admission?: Yes (7) Hyponatremia Is this a current diagnosis for this admission?: Yes (8) LFT elevation Is this a current diagnosis for this admission?: Yes (9) Precordial chest pain Is this a current diagnosis for this admission?: Yes (10) Diabetes Qualifiers: Diabetes mellitus type: type 2 Diabetes mellitus complication status: without complication Diabetes mellitus buttermaker helper insulin use: with buttermaker helper use Qualified Code(s): E11.9 - Type 2 diabetes mellitus without complications Is this a current diagnosis for this admission?: Yes (11) Pneumonia Qualifiers: Pneumonia type: aspiration pneumonia Aspiration pneumonia type: unspecified Laterality: right Lung location: lower lobe of lung Qualified Code(s): J69.0 - Pneumonitis due to inhalation of food and vomit Is this a current diagnosis for this admission?: Yes (12) Hypokalemia Is this a current diagnosis for this admission?: Yes
[2016-10-16] MEDS: BUDESONIDE NEB 0.5 MG/2 ML AMPUL NEB SCH ×2 (08:32→19:57)
[2016-10-16] MEDS: PREDNISONE 10 MG TABLET PO SCH ×2 (09:17→17:44)
[2016-10-16] MEDS: METOPROLOL SUCCINATE 50 MG TAB.SR.24H PO SCH (09:17)
[2016-10-16] MEDS: LANSOPRAZOLE 30 MG TAB.RAP.DR PO SCH (09:18)
[2016-10-16] MEDS: POTASSIUM CHLORIDE 10 MEQ TABLET.SA PO SCH ×2 (09:18→17:44)
[2016-10-16] MEDS: ENOXAPARIN SODIUM INJ 30 MG/0.3 ML DISP.SYRIN SUBCUT SCH (09:19)
[2016-10-16] MEDS: INSULIN GLARGINE,HUM.REC.ANLOG 300 UNIT/3 ML INSULN.PEN SUBCUT SCH (09:19)
[2016-10-16] MEDS: DEXTROSE 5%-NORMAL SALINE 1,000 ML IV PRN (17:42)
[2016-10-16] MEDS: GABAPENTIN 300 MG CAPSULE PO SCH (22:23)
[2016-10-17] MEDS: METOCLOPRAMIDE HCL INJ/PF 10 MG/2 ML SDV IV SCH ×2 (00:25→06:08)
[2016-10-17] MEDS: IPRATROPIUM/ALBUTEROL 0.5-2.5 MG/3 ML AMPUL NEB SCH ×4 (02:09→19:41)
[2016-10-17] MEDS: AMPICILLIN SODIUM/SULBACTAM NA 1.5 GM in NORMAL SALINE 50 ML IV SCH ×4 (03:03→20:43)
[2016-10-17] MEDS: BUDESONIDE NEB 0.5 MG/2 ML AMPUL NEB SCH ×2 (08:18→19:41)
--- NOTE | 2016-10-17 08:52 | PDOC PROGRESS REPORT ---
Subjective Progress Note for:: 10/17/16 Subjective:: understands he will not get better. Resigned to hospice care at [facility]. Physical Exam Vital Signs: Temp Pulse Resp BP Pulse Ox 97.8 F 80 20 125/84 99 10/17/16 04:03 10/17/16 04:03 10/17/16 04:03 10/17/16 04:03 10/17/16 04:03 Intake & Output 10/16/16 10/17/16 10/18/16 07:59 07:59 07:59 Intake Total 2891 2272 Output Total 1225 900 Balance 1666 1372 Weight 263 lb 7.238 oz 263 lb 3.711 oz General appearance: PRESENT: mild distress Respiratory exam: PRESENT: wheezes - moderate Cardiovascular exam: PRESENT: irregular rhythm - 30b vt?svt aberrancy. ABSENT: diastolic murmur GI/Abdominal exam: PRESENT: distended. ABSENT: tenderness Extremities exam: ABSENT: pedal edema Neurological exam: PRESENT: oriented to situation Psychiatric exam: PRESENT: depressed Skin exam: PRESENT: other - anasarca scrotum thighs arms Results Laboratory Results: 10/14/16 07:40 10/14/16 07:40 Impressions: Abdomen Ultrasound 09/30/16 00:00 IMPRESSION: SEVERELY LIMITED ABDOMINAL ULTRASOUND. HEPATIC STEATOSIS. NO ADDITIONAL SIGNIFICANT ABNORMALITY NOTED. Acute Abdomen Series 09/30/16 01:58 IMPRESSION: Constipation. No findings to suggest obstruction. KUB X-Ray 10/08/16 09:11 IMPRESSION: Nasogastric tube tip and side port in the stomach. Persistent dilated loops of bowel in the upper abdomen Right medial basilar consolidation likely atelectasis. Pneumonia could not be excluded. Abdomen/Pelvis CT 10/09/16 00:00 IMPRESSION: Oral contrast is seen throughout the gastrointestinal tract without a definite transition point. Findings are suggestive of ileus No free intraperitoneal air or fluid Right basilar airspace disease atelectasis versus pneumonia Chest X-Ray 10/09/16 06:00 IMPRESSION: No gross acute infiltrates Nasogastric tube tip and side port in the stomach Assessment & Plan - Diagnosis (1) Acute and chronic respiratory failure Qualifiers: Respiratory failure complication: unspecified whether with hypoxia or hypercapnia Qualified Code(s): J96.20 - Acute and chronic respiratory failure, unspecified whether with hypoxia or hypercapnia Is this a current diagnosis for this admission?: YesPlan: SNF hospice (2) Ventricular tachycardia (paroxysmal) Is this a current diagnosis for this admission?: YesPlan: 30b [id number]. Already on maximally tolerated metoprolol (3) Adynamic ileus Is this a current diagnosis for this admission?: Yes (4) Paroxysmal atrial fibrillation Is this a current diagnosis for this admission?: Yes (5) Malnutrition Is this a current diagnosis for this admission?: Yes (6) Acute renal injury due to sepsis Is this a current diagnosis for this admission?: YesPlan: stop ivf (7) Constipation Qualifiers: Constipation type: slow transit constipation Qualified Code(s): K59.01 - Slow transit constipation Is this a current diagnosis for this admission?: Yes (8) Hyponatremia Is this a current diagnosis for this admission?: Yes (9) LFT elevation Is this a current diagnosis for this admission?: Yes (10) Precordial chest pain Is this a current diagnosis for this admission?: Yes (11) Diabetes Qualifiers: Diabetes mellitus type: type 2 Diabetes mellitus complication status: without complication Diabetes mellitus intermediate manager insulin use: with intermediate manager use Qualified Code(s): E11.9 - Type 2 diabetes mellitus without complications Is this a current diagnosis for this admission?: Yes (12) Pneumonia Qualifiers: Pneumonia type: aspiration pneumonia Aspiration pneumonia type: unspecified Laterality: right Lung location: lower lobe of lung Qualified Code(s): J69.0 - Pneumonitis due to inhalation of food and vomit Is this a current diagnosis for this admission?: Yes (13) Hypokalemia Is this a current diagnosis for this admission?: Yes
[2016-10-17] MEDS: ENOXAPARIN SODIUM INJ 30 MG/0.3 ML DISP.SYRIN SUBCUT SCH (10:57)
[2016-10-17] MEDS: POTASSIUM CHLORIDE 10 MEQ TABLET.SA PO SCH ×2 (10:57→18:52)
[2016-10-17] MEDS: METOCLOPRAMIDE HCL 10 MG TABLET PO SCH ×3 (10:57→21:36)
[2016-10-17] MEDS: LANSOPRAZOLE 30 MG TAB.RAP.DR PO SCH (10:58)
[2016-10-17] MEDS: GABAPENTIN 300 MG CAPSULE PO SCH ×2 (10:58→21:34)
[2016-10-17] MEDS: PREDNISONE 10 MG TABLET PO SCH ×2 (10:58→18:52)
[2016-10-17] MEDS: METOPROLOL SUCCINATE 50 MG TAB.SR.24H PO SCH (10:58)
[2016-10-17] MEDS: LEVALBUTEROL HCL NEB 1.25 MG/3 ML AMPUL NEB PRN (12:13)
[2016-10-17] MEDS: INSULIN GLARGINE,HUM.REC.ANLOG 300 UNIT/3 ML INSULN.PEN SUBCUT SCH (12:45)
[2016-10-17] MEDS: INSULIN LISPRO 100 UNIT/ML 3 ML VIAL SUBCUT PRN ×2 (19:09→21:34)
[2016-10-18] MEDS: IPRATROPIUM/ALBUTEROL 0.5-2.5 MG/3 ML AMPUL NEB SCH ×3 (01:17→13:46)
[2016-10-18 07:24] LABS: ANION GAP 8 (5-19); BLOOD UREA NITROGEN 9 mg/dL (7-20); CALCIUM 9.1 mg/dL (8.4-10.2); CARBON DIOXIDE 31 mmol/L (22-30); CHLORIDE 102 mmol/L (98-107); CREATININE RESULT 0.54 mg/dL (0.52-1.25); GLUCOSE 141 mg/dL (75-110); POTASSIUM 3.5 mmol/L (3.6-5.0); SODIUM 140.5 mmol/L (137-145)
--- NOTE | 2016-10-18 07:34 | PDOC PROGRESS REPORT ---
Subjective Progress Note for:: 10/18/16 Subjective:: anxious about SNF. No chest pain with [id number] on & off for an hour yesterday. Physical Exam Vital Signs: Temp Pulse Resp BP Pulse Ox 98.2 F 94 19 126/76 H 99 10/18/16 04:09 10/18/16 04:09 10/18/16 04:09 10/18/16 04:09 10/18/16 04:09 Intake & Output 10/16/16 10/17/16 10/18/16 07:59 07:59 07:59 Intake Total 2891 2272 3165 Output Total 1225 900 975 Balance 1666 1372 2190 Weight 263 lb 7.238 oz 263 lb 3.711 oz 281 lb 1.43 oz General appearance: PRESENT: mild distress Respiratory exam: PRESENT: wheezes - moderate Cardiovascular exam: ABSENT: diastolic murmur, irregular rhythm, systolic murmur GI/Abdominal exam: PRESENT: distended. ABSENT: mass, organolmegaly, tenderness Extremities exam: ABSENT: pedal edema Neurological exam: PRESENT: oriented to situation Psychiatric exam: PRESENT: anxious Results Laboratory Results: 10/14/16 07:40 10/18/16 07:00 10/18/16 07:00 Sodium 140.5 Potassium 3.5 L Chloride 102 Carbon Dioxide 31 H Anion Gap 8 BUN 9 Creatinine 0.54 Est GFR ( Amer) > 60 Est GFR (Non-Af Amer) > 60 Glucose 141 H Calcium 9.1 Impressions: Abdomen Ultrasound 09/30/16 00:00 IMPRESSION: SEVERELY LIMITED ABDOMINAL ULTRASOUND. HEPATIC STEATOSIS. NO ADDITIONAL SIGNIFICANT ABNORMALITY NOTED. Acute Abdomen Series 09/30/16 01:58 IMPRESSION: Constipation. No findings to suggest obstruction. KUB X-Ray 10/08/16 09:11 IMPRESSION: Nasogastric tube tip and side port in the stomach. Persistent dilated loops of bowel in the upper abdomen Right medial basilar consolidation likely atelectasis. Pneumonia could not be excluded. Abdomen/Pelvis CT 10/09/16 00:00 IMPRESSION: Oral contrast is seen throughout the gastrointestinal tract without a definite transition point. Findings are suggestive of ileus No free intraperitoneal air or fluid Right basilar airspace disease atelectasis versus pneumonia Chest X-Ray 10/09/16 06:00 IMPRESSION: No gross acute infiltrates Nasogastric tube tip and side port in the stomach Assessment & Plan - Diagnosis (1) Acute and chronic respiratory failure Qualifiers: Respiratory failure complication: unspecified whether with hypoxia or hypercapnia Qualified Code(s): J96.20 - Acute and chronic respiratory failure, unspecified whether with hypoxia or hypercapnia Is this a current diagnosis for this admission?: Yes (2) Ventricular tachycardia (paroxysmal) Is this a current diagnosis for this admission?: Yes (3) Adynamic ileus Is this a current diagnosis for this admission?: Yes (4) Paroxysmal atrial fibrillation Is this a current diagnosis for this admission?: YesPlan: & [id number]. Switch metoprolol to amiodarone (5) Malnutrition Is this a current diagnosis for this admission?: Yes (6) Acute renal injury due to sepsis Is this a current diagnosis for this admission?: Yes (7) Constipation Qualifiers: Constipation type: slow transit constipation Qualified Code(s): K59.01 - Slow transit constipation Is this a current diagnosis for this admission?: Yes (8) Hyponatremia Is this a current diagnosis for this admission?: Yes (9) LFT elevation Is this a current diagnosis for this admission?: Yes (10) Precordial chest pain Is this a current diagnosis for this admission?: Yes (11) Diabetes Qualifiers: Diabetes mellitus type: type 2 Diabetes mellitus complication status: without complication 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
[2016-10-18] MEDS: BUDESONIDE NEB 0.5 MG/2 ML AMPUL NEB SCH (08:12)
[2016-10-18] MEDS ORDERED: AMIODARONE HCL 200 MG TABLET PO SCH (10:00)
[2016-10-18] MEDS: ENOXAPARIN SODIUM INJ 30 MG/0.3 ML DISP.SYRIN SUBCUT SCH (10:29)
[2016-10-18] MEDS: INSULIN GLARGINE,HUM.REC.ANLOG 300 UNIT/3 ML INSULN.PEN SUBCUT SCH (10:29)
[2016-10-18] MEDS: METOCLOPRAMIDE HCL 10 MG TABLET PO SCH (10:30)
[2016-10-18] MEDS: LANSOPRAZOLE 30 MG TAB.RAP.DR PO SCH (10:30)
[2016-10-18] MEDS: POTASSIUM CHLORIDE 10 MEQ TABLET.SA PO SCH (10:30)
[2016-10-18] MEDS: PREDNISONE 10 MG TABLET PO SCH (10:30)
[2016-10-18] MEDS: GABAPENTIN 300 MG CAPSULE PO SCH (10:30)
--- NOTE | 2016-10-18 10:34 | PDOC DISCHARGE SUMMARY ---
General - Admit/Disc Date/PCP Admission Date/Primary Care Provider: 09/30/16 07:30 MARY BETH NEELY MD Discharge Date: 10/18/16 - Discharge Diagnosis (1) Acute and chronic respiratory failure Is this a current diagnosis for this admission?: Yes (2) Ventricular tachycardia (paroxysmal) Is this a current diagnosis for this admission?: Yes (3) Adynamic ileus Is this a current diagnosis for this admission?: Yes (4) Paroxysmal atrial fibrillation Is this a current diagnosis for this admission?: Yes (5) Malnutrition Is this a current diagnosis for this admission?: Yes (6) Acute renal injury due to sepsis Is this a current diagnosis for this admission?: Yes (7) Constipation Is this a current diagnosis for this admission?: Yes (8) Hyponatremia Is this a current diagnosis for this admission?: Yes (9) LFT elevation Is this a current diagnosis for this admission?: Yes (10) Precordial chest pain Is this a current diagnosis for this admission?: Yes (11) Diabetes Is this a current diagnosis for this admission?: Yes (12) Pneumonia Is this a current diagnosis for this admission?: Yes (13) Hypokalemia Is this a current diagnosis for this admission?: Yes - Additional Information Resuscitation Status: Full Code Discharge Diet: As Tolerated Discharge Activity: Balance Activity w/Rest Home Medications: Prednisone [Deltasone 20 mg Tablet] 20 mg PO DAILY 09/30/16 Amiodarone HCl [Cordarone 200 mg Tablet] 400 mg PO Q12 #14 tablet 10/18/16 Bisacodyl [Dulcolax 10 mg Supp.rect] 10 mg MI DAILYP PRN #0 supp.rect 10/18/16 Budesonide [Pulmicort Neb 0.5 mg/2 ml Ampul] 0.5 mg NEB RTQ12 #0 ampul.neb 10/18 Clobetasol Propionate [Temovate 0.05% Cream 15 gm] 1 applic TP BIDP PRN #0 tube 10/18/16 Gabapentin [Neurontin 300 mg Capsule] 300 mg PO Q12 #0 capsule 10/18/16 Insulin Glargine,Hum.rec.anlog [Lantus Insulin 100 Unit/mL] 30 unit SUBCUT DAILY #0 insuln.pen 10/18/16 Insulin Lispro [Humalog Insulin (Lispro) 100 unit/mL] 0 - 24 unit SUBCUT ACHSP PRN #0 unit 10/18/16 Ipratropium/Albuterol Sulfate [Duoneb 3 ml Ampul] 3 ml NEB RTQ6 #0 vial.neb Lansoprazole [Prevacid 30 mg Odt Tablet] 30 mg PO QAM #0 tab.rap. 10/18/16 Metoclopramide HCl [Reglan 10 mg Tablet] 10 mg PO ACHS #0 tablet 10/18/16 History of Present Illness History of Present Illness: YURI FOSTER JR is a 71 year old male who was discharged 6d ago for status asthmaticus. No stool 8d. Distention aggravated severe asthma. In the ER he had draining pyophlebitis L antecubital & leucocytosis. Hospital Course Hospital Course: He was intubated for respiratory failure. Blood & L antecubital abscess grew MMSA. He was given vanc & zosin then unasyn. After extubation his abdominal distention got worse. Ct showed transverse pseudo obstruction. Dr Sykes suggested NC & rectal tubes and stopping diltiazem. Wheeze worsened on metoprolol. He had svt?afib at rate 200. I switched him to amiodarone. His asthma has gotten relentlessly worse inspite of prednisone, xolair and inhalers. He does not want cpr or vent again. So DNR. Physical Exam Vital Signs: Temp Pulse Resp BP Pulse Ox 97.9 F 97 21 H 117/77 97 10/18/16 08:38 10/18/16 08:38 10/18/16 08:38 10/18/16 08:38 10/18/16 08:38 Intake & Output 10/17/16 10/18/16 10/19/16 07:59 07:59 07:59 Intake Total 2272 3165 Output Total 900 975 Balance 1372 2190 Weight 263 lb 3.711 oz 281 lb 1.43 oz General appearance: PRESENT: mild distress Respiratory exam: PRESENT: wheezes Cardiovascular exam: ABSENT: clicks, irregular rhythm, systolic murmur GI/Abdominal exam: ABSENT: distended, mass, organolmegaly, tenderness Extremities exam: ABSENT: pedal edema Results Laboratory Results: 10/14/16 07:40 10/18/16 07:00 Labs- Last Values WBC 12.5 10^3/uL (4.0-10.5) H 10/14/16 07:40 RBC 3.59 10^6/uL (4.35-5.55) L 10/14/16 07:40 Hgb 10.0 g/dL (13.5-17.0) L 10/14/16 07:40 Hct 30.3 % (37.9-51.0) L 10/14/16 07:40 MCV 85 fl (80-97) 10/14/16 07:40 MCH 27.9 pg (27.0-33.4) 10/14/16 07:40 MCHC 33.0 g/dL (32.0-36.0) 10/14/16 07:40 RDW 16.7 % (11.5-14.0) H 10/14/16 07:40 Plt Count 341 10^3/uL (150-450) 10/14/16 07:40 Total Counted 100 10/14/16 07:40 Seg Neutrophils % Not Reportable 10/14/16 07:40 Seg Neuts % (Manual) 88 % (42-78) H 10/14/16 07:40 Band Neutrophils % 3 % (3-5) 10/09/16 15:30 Lymphocytes % Not Reportable 10/14/16 07:40 Lymphocytes % (Manual) 3 % (13-45) L 10/14/16 07:40 Atypical Lymphs % 1 % (0) 10/05/16 04:00 Monocytes % Not Reportable 10/14/16 07:40 Monocytes % (Manual) 9 % (3-13) 10/14/16 07:40 Eosinophils % Not Reportable 10/14/16 07:40 Eosinophils % (Manual) 0 % (0-6) 10/14/16 07:40 Basophils % Not Reportable 10/14/16 07:40 Basophils % (Manual) 0 % (0-2) 10/14/16 07:40 Metamyelocytes % 1 % (0) H 10/09/16 15:30 Absolute Neutrophils Not Reportable 10/14/16 07:40 Abs Neuts (Manual) 11.0 10^3/uL (1.7-8.2) H 10/14/16 07:40 Absolute Lymphocytes Not Reportable 10/14/16 07:40 Abs Lymphs (Manual) 0.4 10^3/uL (0.5-4.7) L 10/14/16 07:40 Absolute Monocytes Not Reportable 10/14/16 07:40 Abs Monocytes (Manual) 1.1 10^3/uL (0.1-1.4) 10/14/16 07:40 Absolute Eosinophils Not Reportable 10/14/16 07:40 Absolute Eos (Manual) 0.0 10^3/uL (0.0-0.6) 10/14/16 07:40 Absolute Basophils Not Reportable 10/14/16 07:40 Abs Basophils (Manual) 0.0 10^3/uL (0.0-0.2) 10/14/16 07:40 Nucleated RBCs 1 /100 WBC (0) 09/30/16 02:10 Toxic Granulation SLIGHT 10/04/16 05:19 Toxic Vacuolation PRESENT 10/09/16 15:30 Dohle Bodies PRESENT 10/02/16 04:09 Platelet Estimate Cancelled 10/04/16 04:39 Clumped Platelets PRESENT 10/14/16 07:40 Large Platelets PRESENT 10/09/16 15:30 Platelet Comment ADEQUATE 10/14/16 07:40 Polychromasia SLIGHT 10/14/16 07:40 Hypochromasia 1+ 10/14/16 07:40 Poikilocytosis SLIGHT 10/14/16 07:40 Anisocytosis 1+ 10/14/16 07:40 Target Cells SLIGHT 10/09/16 15:30 Tear Drop Cells SLIGHT 10/14/16 07:40 Ovalocytes SLIGHT 10/14/16 07:40 Helmet Cells SLIGHT 10/14/16 07:40 Aubrie Cells SLIGHT 10/02/16 04:09 Rouleaux 1+ 10/03/16 04:25 Retic Count (auto) 0.91 % (0.66-2.85) 09/30/16 02:10 Absolute Retic 0.032 10^6/uL (0.028-0.122) 09/30/16 02:10 Carbonic Acid 1.22 mmol/L (1.05-1.35) 10/05/16 12:10 HCO3/H2CO3 Ratio 22:1 10/05/16 12:10 ABG pH 7.45 (7.35-7.45) 10/05/16 12:10 ABG pCO2 40.5 mmHg (35-45) 10/05/16 12:10 ABG pO2 58.9 mmHg (80-100) L 10/05/16 12:10 ABG HCO3 27.2 mmol/L (20-26) H 10/05/16 12:10 ABG Total CO2 28.4 mmol/L (23-27) H 10/05/16 12:10 ABG O2 Saturation 91.6 % (94-98) L 10/05/16 12:10 ABG Base Excess 2.9 mmol/L 10/05/16 12:10 FiO2 ROOM AIR 10/05/16 12:10 Sodium 140.5 mmol/L (137-145) 10/18/16 07:00 Potassium 3.5 mmol/L (3.6-5.0) L 10/18/16 07:00 Chloride 102 mmol/L (98-107) 10/18/16 07:00 Carbon Dioxide 31 mmol/L (22-30) H 10/18/16 07:00 Anion Gap 8 (5-19) 10/18/16 07:00 BUN 9 mg/dL (7-20) 10/18/16 07:00 Creatinine 0.54 mg/dL (0.52-1.25) 10/18/16 07:00 Est GFR ( Amer) > 60 (>60) 10/18/16 07:00 Est GFR (Non-Af Amer) > 60 (>60) 10/18/16 07:00 Glucose 141 mg/dL (75-110) H 10/18/16 07:00 POC Glucose 134 mg/dL (70-110) H 10/18/16 06:36 Lactic Acid 1.5 mmol/L (0.7-2.1) 09/30/16 02:10 Calcium 9.1 mg/dL (8.4-10.2) 10/18/16 07:00 Phosphorus 3.0 mg/dL (2.5-4.5) 10/02/16 04:09 Magnesium 2.5 mg/dL (1.6-2.3) H 10/04/16 04:39 Iron < 10.1 ug/dL (49-181) L 09/30/16 02:10 TIBC 247 ug/dL (250-450) L 09/30/16 02:10 % Saturation UNABLE TO CALCULATE % (20% - 50%) 09/30/16 02:10 Ferritin 396.00 ng/mL (17.9-464.0) 09/30/16 02:10 Total Bilirubin 0.6 mg/dL (0.2-1.3) 10/14/16 07:40 Direct Bilirubin 0.4 mg/dL (0.0-0.4) 10/14/16 07:40 Indirect Bilirubin Not Reportable 10/14/16 07:40 Neonat Total Bilirubin Not Reportable 10/14/16 07:40 AST 28 U/L (17-59) 10/14/16 07:40 ALT 62 U/L (21-72) 10/14/16 07:40 Alkaline Phosphatase 66 U/L (38-126) 10/14/16 07:40 Creatine Kinase 262 U/L (55-170) H 10/01/16 05:50 CK-MB (CK-2) 5.95 ng/mL (<4.55) H 10/01/16 05:50 Troponin I 0.040 ng/mL 10/01/16 05:50 NT-Pro-B Natriuret Pep 814 pg/mL (5-900) 10/01/16 21:15 Total Protein 5.3 g/dL (6.3-8.2) L 10/14/16 07:40 Albumin 2.6 g/dL (3.5-5.0) L 10/14/16 07:40 Lipase 434.2 U/L (23-300) H 10/09/16 15:30 Vitamin B12 766.0 pg/mL (239-931) 09/30/16 02:10 Folate 7.19 ng/mL (>2.76) 09/30/16 02:10 TSH 0.62 uIU/mL (0.47-4.68) 10/08/16 10:20 Free T4 0.76 ng/dL (0.78-2.19) L 10/08/16 10:20 Free T3 pg/mL 2.36 pg/mL (2.77-5.27) L 10/08/16 10:20 Urine Color YELLOW 10/07/16 13:40 Urine Appearance SLIGHTLY-CLOUDY 10/07/16 13:40 Urine pH 6.0 (5.0-9.0) 10/07/16 13:40 Ur Specific Gilman 1.013 10/07/16 13:40 Urine Protein NEGATIVE mg/dL (NEGATIVE) 10/07/16 13:40 Urine Glucose (UA) >=500 mg/dL (NEGATIVE) H 10/07/16 13:40 Urine Ketones TRACE mg/dL (NEGATIVE) H 10/07/16 13:40 Urine Blood SMALL (NEGATIVE) H 10/07/16 13:40 Urine Nitrite NEGATIVE (NEGATIVE) 10/07/16 13:40 Urine Bilirubin NEGATIVE (NEGATIVE) 10/07/16 13:40 Urine Urobilinogen NEGATIVE mg/dL (<2.0) 10/07/16 13:40 Ur Leukocyte Esterase NEGATIVE (NEGATIVE) 10/07/16 13:40 Urine WBC (Auto) 2 /HPF 10/07/16 13:40 Urine RBC (Auto) 1 /HPF 10/07/16 13:40 U Hyaline Cast (Auto) 16 /LPF 09/30/16 02:10 Squamous Epi Cells Auto <1 /HPF 09/30/16 02:10 Amorphous Sediment Auto TRACE /HPF 09/30/16 02:10 Urine Mucus (Auto) RARE /LPF 10/07/16 13:40 Urine Ascorbic Acid NEGATIVE (NEGATIVE) 10/07/16 13:40 Slides for Path Review Cancelled 10/04/16 04:39 Impressions: Abdomen Ultrasound 09/30/16 00:00 IMPRESSION: SEVERELY LIMITED ABDOMINAL ULTRASOUND. HEPATIC STEATOSIS. NO ADDITIONAL SIGNIFICANT ABNORMALITY NOTED. Acute Abdomen Series 09/30/16 01:58 IMPRESSION: Constipation. No findings to suggest obstruction. KUB X-Ray 10/08/16 09:11 IMPRESSION: Nasogastric tube tip and side port in the stomach. Persistent dilated loops of bowel in the upper abdomen Right medial basilar consolidation likely atelectasis. Pneumonia could not be excluded. Abdomen/Pelvis CT 10/09/16 00:00 IMPRESSION: Oral contrast is seen throughout the gastrointestinal tract without a definite transition point. Findings are suggestive of ileus No free intraperitoneal air or fluid Right basilar airspace disease atelectasis versus pneumonia Chest X-Ray 10/09/16 06:00 IMPRESSION: No gross acute infiltrates Nasogastric tube tip and side port in the stomach Qualifiers PATEINT BEING DISCHARGED WITH ANY OF THE FOLLOWING DIAGNOSIS?: No Plan Discharge Plan: to [facility]. I will follow. Reduce amiodarone to 200mg 1 daily after 1 week. Time Spent: Greater than 30 Minutes
[2016-10-18 14:06] VITALS: BP 146/83
--- NOTE | 2016-10-21 18:47 | PDOC PROGRESS REPORT ---
Subjective Subjective:: little better Physical Exam Vital Signs: Temp Pulse Resp BP Pulse Ox 97.9 F 91 17 145/93 H 97 10/13/16 11:17 10/13/16 14:00 10/13/16 13:51 10/13/16 11:17 10/13/16 11:17 Intake & Output 10/12/16 10/13/16 10/14/16 06:59 06:59 06:59 Intake Total 1130 1050 300 Output Total 1753 1000 175 Balance -623 50 125 Weight 116.9 kg 116.8 kg General appearance: PRESENT: cooperative, disheveled, morbidly obese, well- developed Head exam: PRESENT: atraumatic, normocephalic Eye exam: PRESENT: EOMI Mouth exam: PRESENT: dry mucosa, neck supple Neck exam: ABSENT: carotid bruit, JVD, lymphadenopathy, thyromegaly Respiratory exam: PRESENT: decreased breath sounds, prolonged expiratory phas, rhonchi, symmetrical, unlabored, wheezes Cardiovascular exam: PRESENT: RRR, +S1, +S2 Pulses: PRESENT: normal radial pulses GI/Abdominal exam: PRESENT: distended Rectal exam: PRESENT: deferred Musculoskeletal exam: PRESENT: normal inspection Neurological exam: PRESENT: alert, awake Psychiatric exam: PRESENT: normal mood Skin exam: PRESENT: dry, warm Results Laboratory Results: 10/09/16 15:30 10/09/16 15:30 10/01/16 10/01/16 10/01/16 05:50 05:50 21:15 Creatine Kinase 262 H CK-MB (CK-2) 5.95 H Troponin I 0.040 NT-Pro-B Natriuret Pep 814 Impressions: Abdomen Ultrasound 09/30/16 00:00 IMPRESSION: SEVERELY LIMITED ABDOMINAL ULTRASOUND. HEPATIC STEATOSIS. NO ADDITIONAL SIGNIFICANT ABNORMALITY NOTED. Acute Abdomen Series 09/30/16 01:58 IMPRESSION: Constipation. No findings to suggest obstruction. KUB X-Ray 10/08/16 09:11 IMPRESSION: Nasogastric tube tip and side port in the stomach. Persistent dilated loops of bowel in the upper abdomen Right medial basilar consolidation likely atelectasis. Pneumonia could not be excluded. Abdomen/Pelvis CT 10/09/16 00:00 IMPRESSION: Oral contrast is seen throughout the gastrointestinal tract without a definite transition point. Findings are suggestive of ileus No free intraperitoneal air or fluid Right basilar airspace disease atelectasis versus pneumonia Chest X-Ray 10/09/16 06:00 IMPRESSION: No gross acute infiltrates Nasogastric tube tip and side port in the stomach Assessment & Plan - Diagnosis (1) Pneumonia Qualifiers: Pneumonia type: aspiration pneumonia Aspiration pneumonia type: unspecified Laterality: right Lung location: lower lobe of lung Qualified Code(s): J69.0 - Pneumonitis due to inhalation of food and vomit Is this a current diagnosis for this admission?: No (2) Acute and chronic respiratory failure ([id number]) Qualifiers: Respiratory failure complication: hypoxia and hypercapnia Qualified Code(s): J96.21 - Acute and chronic respiratory failure with hypoxia Is this a current diagnosis for this admission?: Yes (3) Status asthmaticus Qualifiers: Asthma severity: severe persistent Qualified Code(s): J45.52 - Severe persistent asthma with status asthmaticus Is this a current diagnosis for this admission?: No (4) Body mass index (BMI) of 40.0-44.9 in adult Is this a current diagnosis for this admission?: Yes (5) Adynamic ileus Is this a current diagnosis for this admission?: Yes
--- NOTE | 2016-10-21 18:50 | PDOC PROGRESS REPORT ---
Subjective Progress Note for:: 10/16/16 Subjective:: little better Physical Exam Vital Signs: Temp Pulse Resp BP Pulse Ox 98.0 F 101 H 22 H 146/83 H 100 10/18/16 14:03 10/18/16 14:03 10/18/16 14:03 10/18/16 14:03 10/18/16 14:03 General appearance: PRESENT: cooperative, disheveled, obese, well-developed Head exam: PRESENT: atraumatic, normocephalic Eye exam: PRESENT: conjunctiva pale, EOMI Mouth exam: PRESENT: dry mucosa, neck supple Neck exam: ABSENT: carotid bruit, JVD, lymphadenopathy, thyromegaly Neurological exam: PRESENT: alert, awake Psychiatric exam: PRESENT: flat affect Skin exam: PRESENT: dry, warm Results Laboratory Results: 10/14/16 07:40 10/18/16 07:00 10/01/16 10/01/16 10/01/16 05:50 05:50 21:15 Creatine Kinase 262 H CK-MB (CK-2) 5.95 H Troponin I 0.040 NT-Pro-B Natriuret Pep 814 Impressions: Abdomen Ultrasound 09/30/16 00:00 IMPRESSION: SEVERELY LIMITED ABDOMINAL ULTRASOUND. HEPATIC STEATOSIS. NO ADDITIONAL SIGNIFICANT ABNORMALITY NOTED. Acute Abdomen Series 09/30/16 01:58 IMPRESSION: Constipation. No findings to suggest obstruction. KUB X-Ray 10/08/16 09:11 IMPRESSION: Nasogastric tube tip and side port in the stomach. Persistent dilated loops of bowel in the upper abdomen Right medial basilar consolidation likely atelectasis. Pneumonia could not be excluded. Abdomen/Pelvis CT 10/09/16 00:00 IMPRESSION: Oral contrast is seen throughout the gastrointestinal tract without a definite transition point. Findings are suggestive of ileus No free intraperitoneal air or fluid Right basilar airspace disease atelectasis versus pneumonia Chest X-Ray 10/09/16 06:00 IMPRESSION: No gross acute infiltrates Nasogastric tube tip and side port in the stomach Assessment & Plan - Diagnosis (1) Pneumonia Qualifiers: Pneumonia type: aspiration pneumonia Aspiration pneumonia type: unspecified Laterality: right Lung location: lower lobe of lung Qualified Code(s): J69.0 - Pneumonitis due to inhalation of food and vomit Is this a current diagnosis for this admission?: No (2) Acute and chronic respiratory failure ([id number]) Qualifiers: Respiratory failure complication: hypoxia and hypercapnia Qualified Code(s): J96.21 - Acute and chronic respiratory failure with hypoxia Is this a current diagnosis for this admission?: Yes (3) Status asthmaticus Qualifiers: Asthma severity: severe persistent Qualified Code(s): J45.52 - Severe persistent asthma with status asthmaticus Is this a current diagnosis for this admission?: No (4) Body mass index (BMI) of 40.0-44.9 in adult Is this a current diagnosis for this admission?: Yes (5) Adynamic ileus Is this a current diagnosis for this admission?: Yes
--- NOTE | 2016-10-21 18:55 | PDOC PROGRESS REPORT ---
Subjective Progress Note for:: 10/17/16 Subjective:: little better Physical Exam Vital Signs: Temp Pulse Resp BP Pulse Ox 98.0 F 101 H 22 H 146/83 H 100 10/18/16 14:03 10/18/16 14:03 10/18/16 14:03 10/18/16 14:03 10/18/16 14:03 General appearance: PRESENT: no acute distress, cooperative, disheveled, morbidly obese, well-developed Head exam: PRESENT: atraumatic, normocephalic Eye exam: PRESENT: conjunctiva pale, EOMI Mouth exam: PRESENT: dry mucosa, neck supple Neck exam: ABSENT: carotid bruit, JVD, lymphadenopathy, thyromegaly Respiratory exam: PRESENT: decreased breath sounds, prolonged expiratory phas, rhonchi, symmetrical, unlabored Cardiovascular exam: PRESENT: RRR, +S1, +S2 Pulses: PRESENT: normal radial pulses GI/Abdominal exam: PRESENT: distended, firm, normal bowel sounds, soft Rectal exam: PRESENT: deferred Musculoskeletal exam: PRESENT: normal inspection Neurological exam: PRESENT: alert, awake Psychiatric exam: PRESENT: flat affect Skin exam: PRESENT: dry, warm Results Laboratory Results: 10/14/16 07:40 10/18/16 07:00 10/01/16 10/01/16 10/01/16 05:50 05:50 21:15 Creatine Kinase 262 H CK-MB (CK-2) 5.95 H Troponin I 0.040 NT-Pro-B Natriuret Pep 814 Impressions: Abdomen Ultrasound 09/30/16 00:00 IMPRESSION: SEVERELY LIMITED ABDOMINAL ULTRASOUND. HEPATIC STEATOSIS. NO ADDITIONAL SIGNIFICANT ABNORMALITY NOTED. Acute Abdomen Series 09/30/16 01:58 IMPRESSION: Constipation. No findings to suggest obstruction. KUB X-Ray 10/08/16 09:11 IMPRESSION: Nasogastric tube tip and side port in the stomach. Persistent dilated loops of bowel in the upper abdomen Right medial basilar consolidation likely atelectasis. Pneumonia could not be excluded. Abdomen/Pelvis CT 10/09/16 00:00 IMPRESSION: Oral contrast is seen throughout the gastrointestinal tract without a definite transition point. Findings are suggestive of ileus No free intraperitoneal air or fluid Right basilar airspace disease atelectasis versus pneumonia Chest X-Ray 10/09/16 06:00 IMPRESSION: No gross acute infiltrates Nasogastric tube tip and side port in the stomach Assessment & Plan - Diagnosis (1) Pneumonia Qualifiers: Pneumonia type: aspiration pneumonia Aspiration pneumonia type: unspecified Laterality: right Lung location: lower lobe of lung Qualified Code(s): J69.0 - Pneumonitis due to inhalation of food and vomit Is this a current diagnosis for this admission?: No (2) Acute and chronic respiratory failure ([id number]) Qualifiers: Respiratory failure complication: hypoxia and hypercapnia Qualified Code(s): J96.21 - Acute and chronic respiratory failure with hypoxia Is this a current diagnosis for this admission?: Yes (3) Status asthmaticus Qualifiers: Asthma severity: severe persistent Qualified Code(s): J45.52 - Severe persistent asthma with status asthmaticus Is this a current diagnosis for this admission?: No (4) Body mass index (BMI) of 40.0-44.9 in adult Is this a current diagnosis for this admission?: Yes (5) Adynamic ileus Is this a current diagnosis for this admission?: Yes
--- NOTE | 2016-10-21 18:59 | PDOC PROGRESS REPORT ---
Subjective Progress Note for:: 10/18/16 Subjective:: little better Physical Exam Vital Signs: Temp Pulse Resp BP Pulse Ox 98.0 F 101 H 22 H 146/83 H 100 10/18/16 14:03 10/18/16 14:03 10/18/16 14:03 10/18/16 14:03 10/18/16 14:03 General appearance: PRESENT: no acute distress, disheveled, morbidly obese, well -developed Head exam: PRESENT: atraumatic, normocephalic Eye exam: PRESENT: conjunctiva pale, EOMI Mouth exam: PRESENT: dry mucosa, neck supple Neck exam: ABSENT: carotid bruit, JVD, lymphadenopathy, thyromegaly Respiratory exam: PRESENT: decreased breath sounds, prolonged expiratory phas, rhonchi, unlabored, wheezes Cardiovascular exam: PRESENT: RRR, +S1, +S2 Pulses: PRESENT: normal radial pulses GI/Abdominal exam: PRESENT: distended, firm, hypoactive bowel sounds Rectal exam: PRESENT: deferred Musculoskeletal exam: PRESENT: normal inspection Neurological exam: PRESENT: alert, awake Psychiatric exam: PRESENT: flat affect Skin exam: PRESENT: dry, warm Results Laboratory Results: 10/14/16 07:40 10/18/16 07:00 10/01/16 10/01/16 10/01/16 05:50 05:50 21:15 Creatine Kinase 262 H CK-MB (CK-2) 5.95 H Troponin I 0.040 NT-Pro-B Natriuret Pep 814 Impressions: Abdomen Ultrasound 09/30/16 00:00 IMPRESSION: SEVERELY LIMITED ABDOMINAL ULTRASOUND. HEPATIC STEATOSIS. NO ADDITIONAL SIGNIFICANT ABNORMALITY NOTED. Acute Abdomen Series 09/30/16 01:58 IMPRESSION: Constipation. No findings to suggest obstruction. KUB X-Ray 10/08/16 09:11 IMPRESSION: Nasogastric tube tip and side port in the stomach. Persistent dilated loops of bowel in the upper abdomen Right medial basilar consolidation likely atelectasis. Pneumonia could not be excluded. Abdomen/Pelvis CT 10/09/16 00:00 IMPRESSION: Oral contrast is seen throughout the gastrointestinal tract without a definite transition point. Findings are suggestive of ileus No free intraperitoneal air or fluid Right basilar airspace disease atelectasis versus pneumonia Chest X-Ray 10/09/16 06:00 IMPRESSION: No gross acute infiltrates Nasogastric tube tip and side port in the stomach Assessment & Plan - Diagnosis (1) Pneumonia Qualifiers: Pneumonia type: aspiration pneumonia Aspiration pneumonia type: unspecified Laterality: right Lung location: lower lobe of lung Qualified Code(s): J69.0 - Pneumonitis due to inhalation of food and vomit Is this a current diagnosis for this admission?: No (2) Acute and chronic respiratory failure ([id number]) Qualifiers: Respiratory failure complication: hypoxia and hypercapnia Qualified Code(s): J96.21 - Acute and chronic respiratory failure with hypoxia Is this a current diagnosis for this admission?: Yes (3) Status asthmaticus Qualifiers: Asthma severity: severe persistent Qualified Code(s): J45.52 - Severe persistent asthma with status asthmaticus Is this a current diagnosis for this admission?: No (4) Body mass index (BMI) of 40.0-44.9 in adult Is this a current diagnosis for this admission?: Yes (5) Adynamic ileus Is this a current diagnosis for this admission?: Yes
--- NOTE | 2016-10-21 19:02 | PDOC PROGRESS REPORT ---
Subjective Progress Note for:: 10/15/16 Subjective:: no change Physical Exam Vital Signs: Temp Pulse Resp BP Pulse Ox 98.8 F 95 20 131/62 H 99 10/15/16 16:00 10/15/16 19:35 10/15/16 19:35 10/15/16 16:00 10/15/16 19:35 Intake & Output 10/14/16 10/15/16 10/16/16 06:59 06:59 06:59 Intake Total 2089 3064 1346 Output Total 594 825 650 Balance 1614 9949 696 Weight 118.2 kg 119.6 kg General appearance: PRESENT: cooperative, disheveled, morbidly obese, well- developed Head exam: PRESENT: atraumatic, normocephalic Eye exam: PRESENT: conjunctiva pale, EOMI Mouth exam: PRESENT: dry mucosa, neck supple Neck exam: ABSENT: carotid bruit, JVD, lymphadenopathy, thyromegaly Respiratory exam: PRESENT: decreased breath sounds, prolonged expiratory phas, rhonchi, symmetrical, unlabored, wheezes Cardiovascular exam: PRESENT: RRR, +S1, +S2 Pulses: PRESENT: normal radial pulses GI/Abdominal exam: PRESENT: distended, firm, hypoactive bowel sounds Rectal exam: PRESENT: deferred Musculoskeletal exam: PRESENT: normal inspection Neurological exam: PRESENT: alert, awake Psychiatric exam: PRESENT: flat affect Skin exam: PRESENT: dry, warm Results Laboratory Results: 10/14/16 07:40 10/14/16 07:40 10/01/16 10/01/16 10/01/16 05:50 05:50 21:15 Creatine Kinase 262 H CK-MB (CK-2) 5.95 H Troponin I 0.040 NT-Pro-B Natriuret Pep 814 Impressions: Abdomen Ultrasound 09/30/16 00:00 IMPRESSION: SEVERELY LIMITED ABDOMINAL ULTRASOUND. HEPATIC STEATOSIS. NO ADDITIONAL SIGNIFICANT ABNORMALITY NOTED. Acute Abdomen Series 09/30/16 01:58 IMPRESSION: Constipation. No findings to suggest obstruction. KUB X-Ray 10/08/16 09:11 IMPRESSION: Nasogastric tube tip and side port in the stomach. Persistent dilated loops of bowel in the upper abdomen Right medial basilar consolidation likely atelectasis. Pneumonia could not be excluded. Abdomen/Pelvis CT 10/09/16 00:00 IMPRESSION: Oral contrast is seen throughout the gastrointestinal tract without a definite transition point. Findings are suggestive of ileus No free intraperitoneal air or fluid Right basilar airspace disease atelectasis versus pneumonia Chest X-Ray 10/09/16 06:00 IMPRESSION: No gross acute infiltrates Nasogastric tube tip and side port in the stomach Assessment & Plan - Diagnosis (1) Pneumonia Qualifiers: Pneumonia type: aspiration pneumonia Aspiration pneumonia type: unspecified Laterality: right Lung location: lower lobe of lung Qualified Code(s): J69.0 - Pneumonitis due to inhalation of food and vomit Is this a current diagnosis for this admission?: Yes (2) Acute and chronic respiratory failure ([id number]) Qualifiers: Respiratory failure complication: hypoxia and hypercapnia Qualified Code(s): J96.21 - Acute and chronic respiratory failure with hypoxia Is this a current diagnosis for this admission?: Yes (3) Status asthmaticus Qualifiers: Asthma severity: severe persistent Qualified Code(s): J45.52 - Severe persistent asthma with status asthmaticus Is this a current diagnosis for this admission?: Yes (4) Body mass index (BMI) of 40.0-44.9 in adult Is this a current diagnosis for this admission?: Yes (5) Adynamic ileus Is this a current diagnosis for this admission?: Yes
--- NOTE | 2016-10-21 19:07 | PDOC PROGRESS REPORT ---
Subjective Progress Note for:: 10/03/16 Subjective:: stable Physical Exam Vital Signs: Temp Pulse Resp BP Pulse Ox 98.1 F 71 17 159/84 H 100 10/03/16 04:56 10/02/16 20:00 10/03/16 06:00 10/03/16 05:30 10/03/16 06:00 Intake & Output 10/02/16 10/03/16 10/04/16 06:59 06:59 06:59 Intake Total 3770 3569 Output Total 4505 2600 Balance -735 969 Weight 109.9 kg 113.4 kg General appearance: PRESENT: cooperative, disheveled, mild distress, obese Head exam: PRESENT: atraumatic, normocephalic Eye exam: PRESENT: conjunctiva pale, EOMI Mouth exam: PRESENT: dry mucosa, neck supple Neck exam: ABSENT: carotid bruit, JVD, lymphadenopathy, thyromegaly Respiratory exam: PRESENT: decreased breath sounds, prolonged expiratory phas, rhonchi, symmetrical, wheezes Cardiovascular exam: PRESENT: RRR, +S1, +S2 Pulses: PRESENT: normal radial pulses GI/Abdominal exam: PRESENT: distended, hypoactive bowel sounds Rectal exam: PRESENT: deferred Musculoskeletal exam: PRESENT: normal inspection Neurological exam: PRESENT: alert, awake Psychiatric exam: PRESENT: flat affect Skin exam: PRESENT: dry, warm Results Laboratory Results: 10/03/16 04:25 10/03/16 04:25 10/03/16 10/03/16 10/03/16 04:25 04:25 04:25 WBC 11.2 H RBC 3.21 L Hgb 9.0 L Hct 26.6 L MCV 83 MCH 28.1 MCHC 33.8 RDW 16.7 H Plt Count 233 Seg Neutrophils % Not Reportable Lymphocytes % Not Reportable Monocytes % Not Reportable Eosinophils % Not Reportable Basophils % Not Reportable Absolute Neutrophils Not Reportable Absolute Lymphocytes Not Reportable Absolute Monocytes Not Reportable Absolute Eosinophils Not Reportable Absolute Basophils Not Reportable Carbonic Acid 1.10 HCO3/H2CO3 Ratio 27:1 ABG pH 7.53 H ABG pCO2 36.5 ABG pO2 119.3 H ABG HCO3 29.8 H ABG O2 Saturation 98.7 H ABG Base Excess 6.6 FiO2 30% Sodium 137.0 Potassium 4.2 Chloride 103 Carbon Dioxide 27 Anion Gap 7 BUN 31 H Creatinine 0.88 Est GFR ( Amer) > 60 Est GFR (Non-Af Amer) > 60 Glucose 274 H Calcium 9.2 Total Bilirubin 0.4 AST 24 ALT 58 Alkaline Phosphatase 77 Total Protein 4.7 L Albumin 2.2 L 09/30/16 15:18 Nasophary ([facility] Only) MRSA Surveillance Culture - Final NO MRSA RECOVERED 10/01/16 10/01/16 10/01/16 05:50 05:50 21:15 Creatine Kinase 262 H CK-MB (CK-2) 5.95 H Troponin I 0.040 NT-Pro-B Natriuret Pep 814 Impressions: Abdomen Ultrasound 09/30/16 00:00 IMPRESSION: SEVERELY LIMITED ABDOMINAL ULTRASOUND. HEPATIC STEATOSIS. NO ADDITIONAL SIGNIFICANT ABNORMALITY NOTED. Acute Abdomen Series 09/30/16 01:58 IMPRESSION: Constipation. No findings to suggest obstruction. Chest X-Ray 10/03/16 06:00 IMPRESSION: Tip of an OG tube seen to level of the lower chest likely at the distal esophagus; consider 11 cm advancement. stable right basilar opacity - effusion. Additional lines and tubes. Assessment & Plan - Diagnosis (1) Pneumonia Qualifiers: Pneumonia type: aspiration pneumonia Aspiration pneumonia type: unspecified Laterality: right Lung location: lower lobe of lung Qualified Code(s): J69.0 - Pneumonitis due to inhalation of food and vomit Is this a current diagnosis for this admission?: Yes (2) Acute and chronic respiratory failure ([id number]) Qualifiers: Respiratory failure complication: hypoxia and hypercapnia Qualified Code(s): J96.21 - Acute and chronic respiratory failure with hypoxia Is this a current diagnosis for this admission?: Yes (3) Status asthmaticus Qualifiers: Asthma severity: severe persistent Qualified Code(s): J45.52 - Severe persistent asthma with status asthmaticus Is this a current diagnosis for this admission?: Yes (4) Body mass index (BMI) of 40.0-44.9 in adult Is this a current diagnosis for this admission?: Yes (5) Adynamic ileus Is this a current diagnosis for this admission?: Yes
== END 2016-10-18 15:47 | DRG 871 ==
LOC: ER 01:34 → EH 05:23 → UNDOADMIN 05:23 → EH 07:30 → 5 08:14 → 3S 10:54 → ICU 10-01 05:55 → 3N 10-04 16:08
PROVIDERS: ADMIT Family Medicine; ATTEND Family Medicine
PROC: 5A1945Z Respiratory Ventilation, 24-96 Consecutive Hours (ICD-10-PCS; principal; 2016-10-01)
PROC: 0BH17EZ Insertion of Endotracheal Airway into Trachea, Via Natural or Artificial Opening (ICD-10-PCS; 2016-10-01)
DX: A41.9 Sepsis, unspecified organism (principal); J69.0 Pneumonitis due to inhalation of food and vomit; J96.21 Acute and chronic respiratory failure with hypoxia; J96.22 Acute and chronic respiratory failure with hypercapnia; N17.9 Acute kidney failure, unspecified; K56.0 Paralytic ileus; Z66 Do not resuscitate; J45.901 Unspecified asthma with (acute) exacerbation; J45.52 Severe persistent asthma with status asthmaticus; I50.32 Chronic diastolic (congestive) heart failure; L02.414 Cutaneous abscess of left upper limb; E87.1 Hypo-osmolality and hyponatremia; I47.2 Ventricular tachycardia; E46 Unspecified protein-calorie malnutrition; Z68.42 Body mass index [BMI] 45.0-49.9, adult; R65.20 Severe sepsis without septic shock; A49.01 Methicillin susceptible Staphylococcus aureus infection, unspecified site; I11.0 Hypertensive heart disease with heart failure; E86.0 Dehydration; E11.319 Type 2 diabetes mellitus with unspecified diabetic retinopathy without macular edema; I48.0 Paroxysmal atrial fibrillation; E87.6 Hypokalemia; I80.8 Phlebitis and thrombophlebitis of other sites; K21.9 Gastro-esophageal reflux disease without esophagitis; R07.2 Precordial pain; K59.00 Constipation, unspecified; I25.2 Old myocardial infarction; Z85.46 Personal history of malignant neoplasm of prostate; Z79.82 Long term (current) use of aspirin; Z79.4 Long term (current) use of insulin; Z79.899 Other long term (current) drug therapy; Z79.52 Long term (current) use of systemic steroids; Z79.51 Long term (current) use of inhaled steroids
CPT/HCPCS: 31500; 36415; 36600; 71010; 74000; 74022; 74176; 76700; 80048; 80053; 81001; 82550; 82553; 82607; 82728; 82746; 82803; 82962; 83540; 83550; 83605; 83690; 83735; 83880; 84100; 84439; 84443; 84481; 84484; 85025; 85045; 87040; 87070; 87075; 87077; 87086; 87186; 87205; 93005; 93010; 93976; 94002; 94003; 94660; 94799; 96365; 99291; G8978-GP; G8979-GP; J0282; J0295; J0330; J0713; J1100; J1160; J1650; J1815; J2250; J2405; J2543; J2704; J2765; J2920; J2930; J3370; J3490; J7030; J7060; J7512; J7620

== ENCOUNTER 2016-10-31 13:44 | Emergency (ER) | payer MEDICAID, MEDICARE ==
--- NOTE | 2016-10-31 14:22 | ER Document Report ---
ED General - General Mode of Arrival: Medic Information source: Patient TRAVEL OUTSIDE OF THE [place] IN LAST 30 DAYS: No - HPI Patient complains to provider of: Difficulty breathing Onset: This morning Onset/Duration: Gradual, Better Associated symptoms: Shortness of breath, Other - Abdominal pain Recently seen / treated by doctor: Yes - Admitted September 30 - October 18 <LOREN SHEFFIELD - Last Filed: 10/31/16 14:24> <ETHAN KELSEY - Last Filed: 10/31/16 16:30> <AMPARO REYES - Last Filed: 10/31/16 20:23> <SUKUMAR ROMO - Last Filed: 11/01/16 00:28> - General Chief Complaint: Breathing Difficulty Stated Complaint: WEAKNESS Time Seen by Provider: 10/31/16 13:50 Notes: Patient is a 71-year-old male presenting to the emergency department from a detention concerns of difficulty breathing. Patient does not know why he was sent, states that his breathing feels pretty good now. Patient also admits to abdominal pain, stating that he is very gassy and his abdomen is distended. Patient was recently admitted here September 30 and discharged October 18. (LOREN SHEFFIELD) The patient was sent from the detention for difficulty breathing. He states his breathing is about normal for him at this point. His abdomen is quite distended and percussion resonant. He is on 4 L nasal cannula. He states she is normally on 3 L nasal cannula. Work came back showing a serum CO2 of 41 for blood gas was done. Blood gas showed a PCO2 of 61 and a PO2 of 153. His oxygen was turned off, he was encouraged to hyperventilate briefly, then to breathe very deep inspiration and expiration slowly. The oxygen was then set on 2 L nasal cannula to allow him to blow off his carbon dioxide. He does have some difficulty with deep inspirations due to his abdominal distention and tension. Acute abdominal series suggests small bowel obstruction , so at this time he is drinking oral contrast for a CT scan. (ETHAN KELSEY) - Related Data Allergies/Adverse Reactions: No Known Allergies Allergy (Verified 09/12/16 08:09) Past Medical History - General Information source: Patient, [facility] Records - Social History Smoking Status: Unknown if Ever Smoked Lives with: Long Term Family History: Reviewed & Not Pertinent, CAD, DM, Other - asthma brother - Past Medical History Cardiac Medical History: Reports: Hx Atrial Fibrillation, Hx Congestive Heart Failure - diastolic since 2016 echo., Hx Heart Attack - NSTEMI, Hx Hypercholesterolemia, Hx Hypertension Pulmonary Medical History: Reports: Hx Asthma - severe persistant Endocrine Medical History: Reports: Hx Diabetes Mellitus Type 2 Malignancy Medical History: Reports Hx Prostate Cancer GI Medical History: Reports: Hx Gastroesophageal Reflux Disease - 1m esophageal ulcer. DrL ablated gastric & duodenal avm. Musculoskeltal Medical History: Reports Hx Arthritis - KNEES, TOES Skin Medical History: Reports Hx Eczema Past Surgical History: Reports: Other - L cataract - Immunizations Hx Diphtheria, Pertussis, Tetanus Vaccination: Yes Hx Pneumococcal Vaccination: 03/27/16 <LOREN SHEFFIELD - Last Filed: 10/31/16 14:24> Review of Systems - Review of Systems Constitutional: No symptoms reported EENT: No symptoms reported Cardiovascular: No symptoms reported Respiratory: See HPI, Short of breath Gastrointestinal: See HPI, Abdomen distended, Abdominal pain Genitourinary: No symptoms reported Male Genitourinary: No symptoms reported Musculoskeletal: No symptoms reported Skin: No symptoms reported Hematologic/Lymphatic: No symptoms reported Neurological/Psychological: No symptoms reported -: Yes All other systems reviewed and negative <LOREN SHEFFIELD - Last Filed: 10/31/16 14:24> Physical Exam - Vital signs Interpretation: Normal - General General appearance: Alert - HEENT Head: Normocephalic, Atraumatic Eyes: Normal Pupils: PERRL - Respiratory Respiratory status: No respiratory distress Chest status: Nontender Breath sounds: Normal Chest palpation: Normal - Cardiovascular Rhythm: Regular Heart sounds: Normal auscultation Murmur: No - Abdominal Inspection: Obese Distension: Distended - resonant to percuss Tenderness: Nontender - Back Back: Normal, Nontender - Extremities General upper extremity: Normal inspection, Nontender General lower extremity: Nontender, Edema - 3+ Pitting Edema - Neurological Neuro grossly intact: Yes Cognition: Normal Orientation: AAOx4 Yu Coma Scale Eye Opening: Spontaneous [place] Coma Scale Verbal: Oriented Yu Coma Scale Motor: Obeys Commands [place] Coma Scale Total: 15 Speech: Normal - Psychological Associated symptoms: Normal affect, Normal mood - Skin Skin Temperature: Warm Skin Moisture: Dry Skin Color: Normal <LOREN SHEFFIELD - Last Filed: 10/31/16 14:24> Course <LOREN SHEFFIELD - Last Filed: 10/31/16 14:24> - Laboratory Result Diagrams: 10/31/16 14:15 10/31/16 14:15 - Diagnostic Test Radiology reviewed: Image reviewed, Reports reviewed - Transfer of Care Care transferred to following provider: Dr. Treadwell <ETHAN KELSEY - Last Filed: 10/31/16 16:30> - Laboratory Result Diagrams: 10/31/16 14:15 10/31/16 14:15 - Consults Dr. Ta Time consulted: 20:17 - Discussed patient's condition, Dr. Ta believes patient is OK to go back to his residence <AMPARO REYES - Last Filed: 10/31/16 20:23> - Laboratory Result Diagrams: 10/31/16 14:15 10/31/16 14:15 <SUKUMAR ROMO - Last Filed: 11/01/16 00:28> - Re-evaluation Re-evalutation: 10/31/16 16:30 At this time the patient's pulse ox is 100% on 2 L nasal cannula. It is receiving 20 mEq of potassium IV. He is waiting to have the CT scan of the abdomen and pelvis done. (ETHAN KELSEY) 10/31/16 18:00 Culture room for patient with difficulty breathing. Wheezing on exam. DuoNeb ordered and Solu-Medrol. 10/31/16 18:41 Patient improved after nebulizer treatment. Patient with bowel movement that is green but formed. Sent for culture, Hemoccult, C. difficile. 10/31/16 20:26 Patient with probable ileus on CT. No acute findings with stool. Patient states she feels better. Family states that he appears a lot better. Patient does not have any abdominal pain at this time. He is in no respiratory distress. Discussed with Dr. Mendez. Patient will be sent back to his residence. Agrees with this plan. Potassium has been given. Stable at time of discharge. (SUKUMAR ROMO) - Vital Signs Vital signs: Temp Pulse Resp BP Pulse Ox 18 135/80 H 100 10/31/16 23:01 10/31/16 23:01 10/31/16 23:01 - Laboratory Laboratory results interpreted by me: 10/31/16 10/31/16 10/31/16 14:15 14:15 15:35 RBC 3.16 L Hgb 8.7 L Hct 26.2 L RDW 17.6 H Seg Neuts % (Manual) 85 H Band Neutrophils % 2 L Lymphocytes % (Manual) 7 L Abs Neuts (Manual) 8.5 H Carbonic Acid 1.83 H ABG pH 7.48 H ABG pCO2 60.9 H ABG pO2 153.4 H ABG HCO3 43.8 H ABG Total CO2 45.7 H ABG O2 Saturation 99.0 H Potassium 3.0 L* Chloride 90 L Carbon Dioxide 41 H* Glucose 167 H Creatine Kinase 25 L Total Protein 6.1 L Albumin 2.9 L Lipase 311.7 H - Transfer of Care Notes: 10/31/16 16:29 Patient care is transferred to Dr. Romo, disposition is pending CT scan results. (ETHAN KELSEY) Critical Care Note - Critical Care Note Total time excluding time spent on procedures (mins): 35 <SUKUMAR ROMO - Last Filed: 11/01/16 00:28> Discharge <LOREN SHEFFIELD - Last Filed: 10/31/16 14:24> <ETHAN KELSEY - Last Filed: 10/31/16 16:30> <AMPARO REYES - Last Filed: 10/31/16 20:23> <SUKUMAR ROMO - Last Filed: 11/01/16 00:28> - Discharge Clinical Impression: Small bowel obstruction, Carbon dioxide retention, Hypokalemia COPD (chronic obstructive pulmonary disease) Qualifiers: COPD type: unspecified COPD Qualified Code(s): J44.9 - Chronic obstructive pulmonary disease, unspecified Condition: Stable Disposition: HOME-SNF (ED ONLY) Instructions: Chronic Obstructive Lung Disease ([facility]) Prescriptions: Metoclopramide HCl [Reglan 10 mg Tablet] 10 mg PO TID #60 tablet Referrals: MARY BETH MENDEZ MD [ACTIVE STAFF] - Follow up in 3-5 days Scribe Attestation: 10/31/16 16:31 I personally performed the services described in the documentation, reviewed and edited the documentation which was dictated to the scribe in my presence, and it accurately records my words and actions. (ETHAN KELSEY) Scribe Documentation - Scribe Written by Heather:: Heather Escobar, 10/31/2016 1420 acting as scribe for :: Nikkie <LOREN SHEFFIELD - Last Filed: 10/31/16 14:24>
[2016-10-31 14:34] LABS: APPEARANCE,URINE CLEAR; BILIRUBIN,URINE NEGATIVE (NEGATIVE); GLUCOSE, URINE NEGATIVE (NEGATIVE); KETONES,URINE NEGATIVE (NEGATIVE); LEUKOCYTE ESTERASE,URINE NEGATIVE (NEGATIVE); NITRITE,URINE NEGATIVE (NEGATIVE); PROTEIN,URINE NEGATIVE (NEGATIVE); URINE SPECIFIC GRAVITY 1.003; UROBILINOGEN,URINE NEGATIVE mg/dL (<2.0)
[2016-10-31 14:39] LABS: HEMATOCRIT 26.2 % (37.9-51.0); HEMOGLOBIN 8.7 g/dL (13.5-17.0); HGB HCT DIFFERENCE -0.1; MEAN CORPUSCULAR HEMOGLOBIN 27.5 pg (27.0-33.4); MEAN CORPUSCULAR HGB CONC 33.2 g/dL (32.0-36.0); MEAN CORPUSCULAR VOLUME 83 fl (80-97); RED BLOOD COUNT 3.16 10^6/uL (4.35-5.55); RED CELL DISTRIBUTION WIDTH 17.6 % (11.5-14.0); WHITE BLOOD COUNT 9.8 10^3/uL (4.0-10.5)
[2016-10-31 14:52] LABS: ALANINE AMINOTRANSFERASE 44 U/L (21-72); ALBUMIN 2.9 g/dL (3.5-5.0); ALKALINE PHOSPHATASE 87 U/L (38-126); ASPARTATE AMINO TRANSFERASE 34 U/L (17-59); BILIRUBIN,DIRECT 0.4 mg/dL (0.0-0.4); BILIRUBIN,TOTAL 0.6 mg/dL (0.2-1.3); BLOOD UREA NITROGEN 10 mg/dL (7-20); CALCIUM 8.8 mg/dL (8.4-10.2); CHLORIDE 90 mmol/L (98-107); CREATINE KINASE 25 U/L (55-170); GLUCOSE 167 mg/dL (75-110); LIPASE 311.7 U/L (23-300); TOTAL PROTEIN 6.1 g/dL (6.3-8.2)
--- NOTE | 2016-10-31 15:02 | RADIOLOGY REPORT (SQ) ---
EXAM DESCRIPTION: ACUTE ABDOMEN SERIES COMPLETED DATE/TIME: 10/31/2016 2:50 pm REASON FOR STUDY: SOB, abdominal distention COMPARISON: None. NUMBER OF VIEWS: Three views. TECHNIQUE: Frontal chest, supine abdomen and upright/decubitus abdomen radiographic images acquired. LIMITATIONS: None. FINDINGS: CHEST: Lungs clear of infiltrates. FREE AIR: None. No abnormal gas collections. BOWEL GAS PATTERN: Dilated loops of small bowel containing abundant gas. CALCIFICATIONS: No suspicious calcifications. HARDWARE: Radiation seed markers. Right-sided port. SOFT TISSUES: No gross mass or suggestion of organomegaly. BONES: No acute fracture. No worrisome bone lesions. OTHER: No other significant finding. IMPRESSION: Small bowel obstruction. TECHNICAL DOCUMENTATION: JOB ID: [id number] [employer]- All Rights Reserved
[2016-10-31 15:03] LABS: BAND NEUTROPHILS % (MANUAL) 2 % (3-5); BASOPHILS % (MANUAL) 0 % (0-2); CREATINE KINASE MB 1.06 ng/mL (<4.55); EOSINOPHILS % (MANUAL) 0 % (0-6); LYMPHOCYTES % (MANUAL) 7 % (13-45); TOTAL CELLS COUNTED 100; TROPONIN I 0.018 ng/mL
[2016-10-31 15:04] LABS: ANION GAP 8 (5-19)
[2016-10-31 15:07] LABS: ANISOCYTOSIS 1+; CARBON DIOXIDE 41 mmol/L (22-30); HYPOCHROMASIA SLIGHT; OVALOCYTES SLIGHT; POIKILOCYTOSIS SLIGHT; POLYCHROMASIA SLIGHT; TARGET CELLS SLIGHT; TEAR DROP CELLS SLIGHT
[2016-10-31] MEDS ORDERED: POTASSI CL 20 MEQ/50 ML RIDER 50 ML IV ONE ×2 (16:09→18:21)
[2016-10-31] MEDS ORDERED: IPRATROPIUM/ALBUTEROL 0.5-2.5 MG/3 ML AMPUL NEB ONE (18:21)
[2016-10-31] MEDS ORDERED: POTASSI CL 20 MEQ/50 ML RIDER 20 MEQ/50 ML RTUPB IV ONE (18:25)
--- NOTE | 2016-10-31 19:00 | RADIOLOGY REPORT (SQ) ---
EXAM DESCRIPTION: CT ABD/PELVIS ORAL ONLY COMPLETED DATE/TIME: 10/31/2016 6:10 pm REASON FOR STUDY: SBO COMPARISON: None. TECHNIQUE: CT scan of the abdomen and pelvis performed without intravenous or oral contrast. Images reviewed with lung, soft tissue, and bone windows. Reconstructed coronal and sagittal MPR images revi ewed. All images stored on PACS. All CT scanners at this facility use dose modulation, iterative reconstruction, and/or weight based d osing when appropriate to reduce radiation dose to as low as reasonably achievable (ALARA). [facility]: Dose Right [facility]: CareDose [facility]: Dose Right [facility]: Teradose 4D [facility]: Nearlyweds RADIATION DOSE: 20.44mGy. LIMITATIONS: None. FINDINGS: LOWER CHEST: The lungs are hyperexpanded. There is mild subsegmental atelectasis versus c onsolidation in the left lower lobe. NON-CONTRASTED LIVER, SPLEEN, ADRENALS: Evaluation limited by lack of IV contrast. No identified sign ificant masses. PANCREAS: No masses. No peripancreatic inflammatory changes. GALLBLADDER: No identified stones by CT criteria. No inflammatory changes to suggest cholecystitis. RIGHT KIDNEY AND URETER: No suspicious masses. Assessment limited by lack of IV contrast. No signif icant calcifications. No hydronephrosis or hydroureter. LEFT KIDNEY AND URETER: No suspicious masses. Assessment limited by lack of IV contrast. No signifi cant calcifications. No hydronephrosis or hydroureter. AORTA AND RETROPERITONEUM: No aneurysm. No retroperitoneal masses or adenopathy. BOWEL AND PERITONEAL CAVITY: The proximal small bowel is of normal caliber. The mid and distal small bowel is mildly dilated. The colon is significantly distended with. Contrast is not present in the colon. The sigmoid colon and rectum are nondistended. A definite transition point is not identifie d, however. APPENDIX: Not identified. PELVIS, BLADDER, AND ABDOMINAL WALL:There is a small ventral hernia on image 63 series 3 that contain s a small portion of 1 wall of the colon with no evidence of obstruction. BONES: No significant findings. OTHER: No other significant finding. IMPRESSION: Ileus versus, less likely, partial large bowel obstruction TECHNICAL DOCUMENTATION: JOB ID: [id number] Quality ID # [id number]: Final reports with documentation of one or more dose reduction techniques (e.g., Au tomated exposure control, adjustment of the mA and/or kV according to patient size, use of iterative reconstruction technique) 2010 [employer]- All Rights Reserved
[2016-10-31] MEDS ORDERED: METOCLOPRAMIDE HCL INJ/PF 10 MG/2 ML SDV IV ONE (20:20)
[2016-10-31 23:35] VITALS: BP 135/80
--- NOTE | 2016-11-01 07:15 | EKG REPORT ---
SEVERITY:- BORDERLINE ECG - SINUS TACHYCARDIA BORDERLINE LEFT AXIS DEVIATION BORDERLINE T WAVE ABNORMALITIES : Confirmed by: Bessie Arvizu MD 01-Nov-2016 07:14:59
== END 2016-10-31 23:52 ==
LOC: ER 13:44
DX: J44.9 Chronic obstructive pulmonary disease, unspecified (principal); J45.50 Severe persistent asthma, uncomplicated; Z99.81 Dependence on supplemental oxygen; E87.2 Acidosis; E87.6 Hypokalemia; K56.60 Unspecified intestinal obstruction; R06.02 Shortness of breath; R10.9 Unspecified abdominal pain; R60.0 Localized edema; I25.2 Old myocardial infarction; I10 Essential (primary) hypertension; E11.9 Type 2 diabetes mellitus without complications; Z85.46 Personal history of malignant neoplasm of prostate
CPT/HCPCS: 93005; 94640; 99285; 96375; 96365; 96366; 86900; 86901; 36415; 87040; 87045; 89055; 87205; 82553; 86850; 82803; 82550; 83690; 85025; 82272; 80053; 81001; 84484; 87493 ×2; 74022; 74176; 93010; J2765; J3480; A9270; J7620